=== PATIENT | male | born 1950 | race Caucasian/White ===

== ENCOUNTER → 2018-07-05 10:34 | Outpatient (CLI) | payer OTHER, SELFPAY ==
--- NOTE | 2018-07-05 | DI.CT.S_ITS ---
PROCEDURE: CT INTERNAL AUDITORY CANALS BI INDICATIONS: RIGHT TINNITUS TECHNIQUE: After the administration of intravenous contrast, 0.6 mm thick direct axial and coronal sections acquired through the affected temporal bone. COMPARISON: None. FINDINGS: Image quality: Excellent. RIGHT: External auditory canal: Canal has a normal appearance. Middle ear: Middle ear structures, including the ossicles and tympanic membrane, appear normal. No abnormal fluid or soft tissues within the middle ear cavity. Inner ear: Inner ear is normally formed and appears unremarkable. Facial nerve appears normal throughout its course. Mastoids: Mastoid air cells are clear. LEFT: External auditory canal: Canal has a normal appearance. Middle ear: Middle ear structures, including the ossicles and tympanic membrane, appear normal. No abnormal fluid or soft tissues within the middle ear cavity. Inner ear: Inner ear is normally formed and appears unremarkable. Facial nerve appears normal throughout its course. Mastoids: Mastoid air cells are clear. MISCELLANEOUS: Visualized surrounding bones are unremarkable. Visualized intracranial structures, including the cerebellopontine angle cisterns, appear normal. IMPRESSION: Normal examination, without an imaging explanation found for the patient's presenting history of right sided pulsatile tinnitus. Dictated by: Domenico Cavazos M.D. on 07/05/2018 at 12:13 Approved by: Domenico Cavazos M.D. on 07/05/2018 at 12:15
[2018-07-05 11:14] LABS: Estimated Glomerular Filt Rate > 60.0 mL/min (>60)
== END ==
PROVIDERS: Family Provider Family Medicine; PCP Family Medicine; Visit Provider Otolaryngology
DX: H93.11 Tinnitus, right ear (principal)
CPT/HCPCS: 36415; 70480; 82565; Q9967

== ENCOUNTER → 2019-03-19 08:34 | Outpatient (CLI) | payer OTHER, SELFPAY ==
--- NOTE | 2019-03-19 | DI.US.S_ITS ---
PROCEDURE: US ABD AORTA ANEURYSM SCREEN INDICATIONS: PERSONAL HX OF NOCOTINE DEPENDENCE TECHNIQUE: Real time scanning was performed of the aorta and iliac arteries, with image documentation. COMPARISON: None. FINDINGS: Aorta: Proximal aortic diameter measures 2.8 cm. Mid-aorta measures 2.3 cm. Distal aortic diameter is 1.4 cm. Iliac arteries: Right common iliac artery measures 1.0 cm. Left common iliac artery measures 1.0 cm. IMPRESSION: No abdominal aortic or proximal common iliac artery aneurysm. Dictated by: Alexandre Al [facility] Interpreted: Bk Lee MD on 03/19/2019 at 13:28 Approved by: Bk Lee M.D. on 03/20/2019 at 9:11
--- NOTE | 2019-03-19 | DI.RAD.S_ITS ---
PROCEDURE: XR CHEST 2V INDICATIONS: Personal history of nicotine dependence,COUGH TECHNIQUE: 2 views of the chest were acquired. COMPARISON: [facility], , CHEST 1 VIEW, 08/19/2015, 10:16. FINDINGS: Surgical changes and devices: Dual-lead cardiac AICD Lungs and pleura: Lungs appear clear. No pleural effusions or pneumothorax. Mediastinum: Mediastinal contours are normal. Heart size is normal. Bones and chest wall: No suspicious bony abnormalities. Soft tissues appear unremarkable. IMPRESSION: No acute disease Dictated by: Genaro Glass M.D. on 03/19/2019 at 10:50 Approved by: Genaro Glass M.D. on 03/19/2019 at 10:51
== END ==
PROVIDERS: PCP Family Medicine; Visit Provider Family Medicine
DX: Z13.6 Encounter for screening for cardiovascular disorders (principal); R05 Cough; I10 Essential (primary) hypertension; Z87.891 Personal history of nicotine dependence
CPT/HCPCS: 71046; 76706

== ENCOUNTER → 2020-08-07 10:18 | Outpatient (CLI) | payer OTHER, SELFPAY ==
--- NOTE | 2020-08-07 10:22 | DI.RAD.S_ITS ---
PROCEDURE: XR KNEE RT 3V INDICATIONS: BI KNEE PAIN TECHNIQUE: 3 views of the knee were acquired. COMPARISON: Located Within [facility], , KNEE 1-2 VIEWS LEFT, 01/24/2009, 10:18. FINDINGS: Bones: No fracture. Bulky osteophyte formation. Scattered degenerative spurring and subchondral sclerosis. Moderate medial joint space narrowing. Mild to moderate patellofemoral joint space narrowing. Subcentimeter sclerotic focus projecting in the proximal tibial plateau, indeterminate although could be superimposed osteophyte. Soft tissues: No joint effusion. No suspicious soft tissue calcifications. IMPRESSION: Progressive right knee degenerative joint disease since 01/24/09. Dictated by: Genaro Glass M.D. on 08/07/2020 at 11:58 Approved by: Genaro Glass M.D. on 08/07/2020 at 12:00
--- NOTE | 2020-08-07 10:22 | DI.RAD.S_ITS ---
PROCEDURE: XR KNEE LT 3V INDICATIONS: BI KNEE PAIN TECHNIQUE: 3 views of the knee were acquired. COMPARISON: [facility], , KNEE 1-2 VIEWS LEFT, 01/24/2009, 10:18. FINDINGS: Bones: No fracture. Narrowing of the patellofemoral joint space. Soft tissues: No joint effusion. No suspicious soft tissue calcifications. Remaining disc spaces appear preserved. IMPRESSION: Patellofemoral degenerative joint disease. Dictated by: Genaro Glass M.D. on 08/07/2020 at 11:48 Approved by: Genaro Glass M.D. on 08/07/2020 at 11:49
== END ==
PROVIDERS: PCP Family Medicine; Referring Provider Family Medicine; Visit Provider Family Medicine
DX: M17.11 Unilateral primary osteoarthritis, right knee (principal); M17.12 Unilateral primary osteoarthritis, left knee
CPT/HCPCS: 73562

== ENCOUNTER → 2020-08-28 12:16 | Outpatient (CLI) | payer OTHER, SELFPAY ==
--- NOTE | 2020-08-28 12:18 | DI.ECHO.S_ITS ---
[facility]+ [facility] +---------+ : : [address] : : : : [id number] : : : : Phone: [phone]+ Echocardiogram Report + + :Name: ALENA WIGGINS Study Date: 08/28/2020 Height: 71 in : :[facility] ReadingLocation: Weight: 205 lb : : Gender: Male BSA: 2.1 m2 : :: 1950 Age: 70 yrs BP: 119/69 mmHg: :Reason For Study: Fatigue : :Ordering Physician: GRECIA, : :GERMANIA Valero Performed By: Ronnie Ervin : :Referring: GERMANIA PAIGE : + + Interpretation Summary This is a technically difficult study enhanced with definity echocontrast. Sinus bradycardia. Heart rate is 50-52 pm. Normal LV size and wall thickness. There is severe basal inferior, basal inferolateral and mid inferior hypokinesis. Otherwise mild global hypokinesis. EF is 30-35%. Stage I diastolic dysfunction. No significant valvular abnormalities. Normal chamber sizes. Compared to prior study 08/20/2015 bradycardia and cardiomyopathy are unchanged from prior study. Procedure: A two-dimensional transthoracic echocardiogram with color flow and Doppler was performed. The study quality was technically difficult. Comparison is made with the echocardiogram of 08/20/2015. A contrast injection of Definity was performed to improve assessment of LV function. Left Ventricle: The left ventricle is normal in size and wall thickness. Left ventricular systolic function is moderately reduced. The ejection fraction is estimated to be 30-35%. There is severe basal inferior, basal inferolateral and mid inferior hypokinesis. Otherwise mild global hypokinesis. Diastolic parameters suggest a relaxation abnormality of the left ventricle, consistent with probable normal filling pressures. Right Ventricle: The right ventricle is normal in size and function. Atria: Both atria are normal in size. There is no Doppler evidence for an interatrial shunt. Mitral Valve: The mitral valve is normal in structure and function. There is mild mitral regurgitation. Aortic Valve: There is mild aortic valve sclerosis. No aortic regurgitation is present. Tricuspid Valve: The tricuspid valve is normal in structure and function. There is a trace or physiologic amount of tricuspid regurgitation. Pulmonary artery pressures cannot be estimated because of the lack of a measurable TR jet velocity. Pulmonic Valve: The pulmonic valve is not well visualized. There is a trace or physiologic amount of pulmonic regurgitation. Great Vessels: The aortic root is normal size. The dimensions of the ascending aorta are normal. The IVC is of normal diameter and collapses greater than 50% with a sniff. This suggests a low right atrial pressure of 3 mm Hg. Pericardium/ Pleura There is no pericardial effusion. There is no pleural effusion. MMode/2D Measurements & Calculations LVIDd: 5.4 cm LVOT diam: 2.2 cm LVIDs: 4.5 cm Ao root diam: 3.6 cm FS: 16.1 % asc Aorta Diam: 3.2 cm IVSd: 1.1 cm LVPWd: 0.92 cm LV paz. diameter/BSA (cm/m^2): 2.5 LV sys. diameter/BSA (cm/m^2): 2.1 LA A2 area: 21.7 cm2 RA area: 14.7 cm2 LA A4 area: 20.9 cm2 LA length (vol): 5.4 cm LA vol: 71.0 ml LA vol index: 33.3 ml/m2 RVD1 (basal): 3.6 cm Doppler Measurements & Calculations Ao V2 max: 157.1 cm/sec LVOT Max Franki: 112.5 cm/sec Ao V2 mean: 109.9 cm/sec LV V1 max P.1 mmHg Ao max P.9 mmHg LV V1 VTI: 21.9 cm Ao mean P.3 mmHg CRISTY(I,D): 2.5 cm2 Ao V2 VTI: 35.0 cm CRISTY(V,D): 2.8 cm2 sev ratio: 0.63 CRISTY indexed to BSA (cm^2/m^2): 1.2 MV E max franki: 49.6 cm/sec PA V2 max: 75.8 cm/sec MV A max franki: 74.6 cm/sec PA V2 mean: 53.4 cm/sec MV E/A: 0.66 PA mean P.3 mmHg Med Peak E' Franki: 6.1 cm/sec PA pr(Accel): 45.8 mmHg E/E' med: 8.1 Lat Peak E' Franki: 9.7 cm/sec E/E' lat: 5.1 E/e' average: 6.6 MV dec time: 0.30 sec SV(LVOT): 86.3 ml Electronically signed by: Martha Galvan M.D. on Reading Physician:08/29/2020 01:29 AM
== END ==
PROVIDERS: PCP Family Medicine; Referring Provider Family Medicine; Visit Provider Family Medicine
DX: I08.0 Rheumatic disorders of both mitral and aortic valves (principal); R53.83 Other fatigue; I25.10 Atherosclerotic heart disease of native coronary artery without angina pectoris; Z86.74 Personal history of sudden cardiac arrest
CPT/HCPCS: C8929; Q9957

== ENCOUNTER → 2021-07-06 13:30 | Outpatient (CLI) | payer OTHER, SELFPAY ==
--- NOTE | 2021-07-06 | DI.CT.S_ITS ---
PROCEDURE: CT UE RT WO CON INDICATIONS: Primary osteoarthritis, right shoulder TECHNIQUE: Noncontrast 1-1.5 mm thick sections acquired from the acromioclavicular joint to the inferior scapula, with coronal and sagittal reformatting. COMPARISON: [facility] [place], CR, XR SHOULDER 2+ VIEWS RIGHT, 06/08/2021, 9:36. FINDINGS: Image quality: There is mild motion artifact. Bones: There is severe joint space narrowing of the glenohumeral joint with subchondral sclerosis and cystic changes as well as prominent osteophytosis. Bony remodeling is demonstrated along the articular surfaces including scalloping posteriorly in the glenoid with mild associated retroversion. Indistinct curvilinear lucencies within the posterior glenoid are also suspicious for sequelae of a mildly depressed impaction fracture. There is superior migration of the humeral head with respect to the glenoid. There is mild acromioclavicular joint degeneration. Remaining visualized osseous structures appear intact. Soft tissues: There is a small glenohumeral joint effusion. There is a fluid collection along the anterior aspect of the subscapularis muscle measuring up to 3.4 x 2.1 cm in transverse dimension suggestive of a loculated joint recess. There are a few internal calcifications which may represent calcified joint bodies or dystrophic calcifications. There is fluid along the biceps tendon suggestive of tenosynovitis. The rotator cuff demonstrates no definite complete tears. Evaluation is limited on CT. No fatty muscle atrophy. IMPRESSION: 1. Severe glenohumeral joint degeneration as described with bony remodeling along the articular surfaces including posterior scalloping along the glenoid with mild associated retroversion. Curvilinear subcortical lucencies within the posterior glenoid raise the possibility of a mildly depressed subchondral impaction fracture. Further evaluation may be obtained with MRI clinically indicated. 2. Superior migration of the humeral head with respect to the glenoid without definite complete rotator cuff tear identified. 3. Mild acromioclavicular joint degeneration. Dictated by: Hernandez Ferreira M.D. on 07/06/2021 at 16:15 Approved by: Hernandez Ferreira M.D. on 07/06/2021 at 16:26
== END ==
PROVIDERS: PCP Family Medicine; Referring Provider Orthopaedic Surgery; Visit Provider Orthopaedic Surgery
DX: M19.011 Primary osteoarthritis, right shoulder (principal)
CPT/HCPCS: 73200

== ENCOUNTER → 2021-08-10 10:25 | Outpatient (CLI) | payer OTHER, SELFPAY ==
[2021-08-10 12:22] LABS: Add Manual Diff / Slide Review NO; Basophils Absolute Auto 100 /uL (0-100); Basophils Percent Auto 3.2 % (0-2); Eosinophils Absolute Auto 400 /uL (0-450); Eosinophils Percent Auto 9.4 % (2-4); Hemoglobin 12.8 g/dL (13.5-17.5); Lymphocytes Absolute Auto 1000 /uL (1100-4500); Lymphocytes Percent Auto 23.3 % (25-40); Mean Corpuscular HGB Conc 33.8 % (30-36); Mean Corpuscular Hemoglobin 31.8 PG (26-34); Mean Corpuscular Volume 94.3 fL (80-100); Monocytes Absolute Auto 600 /uL (0-900); Monocytes Percent Auto 14.8 % (3-14); Neutrophils Absolute Auto 2000 /uL (1500-7000); Neutrophils Percent Auto 49.3 % (50-75); Platelet Count 219 X10^3/uL (150-400); Red Blood Cell Count 4.02 X10^6/uL (4.5-5.9); Red Cell Distribution Width 12.9 % (11.6-14.8); White Blood Cell Count 4.1 X10^3/uL (4.5-11.0)
[2021-08-10 13:04] LABS: BUN Creatinine Ratio 26.6 (6-22); Blood Urea Nitrogen 21 mg/dL (9-20); Calcium 8.8 mg/dL (8.4-10.2); Carbon Dioxide 28 mmol/L (22-32); Chloride 102 mmol/L (98-107); Estimated Glomerular Filt Rate > 60 mL/min (>60); Glucose 92 mg/dL (80-110); Potassium 4.8 mmol/L (3.4-5.1); Sodium 139 mmol/L (137-145)
[2021-08-10 13:13] LABS: HEMOLYSIS 122 (0-50)
== END ==
PROVIDERS: PCP Family Medicine; Referring Provider Orthopaedic Surgery; Visit Provider Orthopaedic Surgery
DX: I10 Essential (primary) hypertension (principal); Z01.812 Encounter for preprocedural laboratory examination
CPT/HCPCS: 36415; 80048; 85025

== ENCOUNTER → 2021-08-31 09:24 | Outpatient (CLI) | payer OTHER, SELFPAY ==
[2021-08-31 11:55] LABS: COVID19 -Nasal RAPID Negative (Negative)
== END ==
PROVIDERS: PCP Family Medicine; Visit Provider Family Medicine Sleep Medicine
DX: Z20.822 Contact with and (suspected) exposure to COVID-19 (principal); Z01.812 Encounter for preprocedural laboratory examination
CPT/HCPCS: 87635; C9803

== ENCOUNTER → 2021-10-19 10:01 | Outpatient (CLI) | payer OTHER, SELFPAY ==
[2021-10-19 10:34] LABS: COVID19 -Nasal RAPID Negative (Negative)
== END ==
PROVIDERS: PCP Family Medicine; Referring Provider Orthopaedic Surgery; Visit Provider Orthopaedic Surgery
DX: Z20.822 Contact with and (suspected) exposure to COVID-19 (principal)
CPT/HCPCS: 87635; C9803

== ENCOUNTER 2021-10-21 06:11 | Day surgery (SDC) | payer OTHER, SELFPAY ==
[2021-10-15 08:00] VITALS: BMI 29.4
[2021-10-21] VITALS (14 sets, daily range): BP systolic 110–141; BP diastolic 35–83; PULSE 53–73; RESP 16–23; TEMP 36.1–36.4; O2SAT 92–97; BMI 29.4
--- NOTE | 2021-10-21 06:00 | DI.RAD.S_ITS ---
PROCEDURE: XR SHOULDER RT 1V INDICATIONS: prosthesis placement TECHNIQUE: Single views of the shoulder were acquired. COMPARISON: [facility], , SHOULDER MINIMUM 2VIEW RIGHT, 05/14/2016, 11:20. FINDINGS: Bones: Total right shoulder arthroplasty in good position. Overlying postprocedural soft tissue air present. No evidence of fracture. Right lung apex is clear without pneumothorax. Soft tissues: No suspicious soft tissue calcifications. IMPRESSION: Total right shoulder arthroplasty in good position. Approved by: David Salinas M.D. on 10/21/2021 at 11:49
[2021-10-21] MEDS: ACETAMINOPHEN 325 MG TABLET 975 MG PO (07:30)
[2021-10-21] MEDS: PREGABALIN 75 MG CAPSULE PO (07:30)
[2021-10-21] MEDS: CELECOXIB 200 MG CAPSULE PO (07:31)
[2021-10-21] MEDS: LACTATED RINGERS 1,000 ML 42 ML IV ×2 (07:44→10:04)
--- NOTE | 2021-10-21 08:01 | PM.PREOP ---
Pre-operative Note COVID-19 COVID-19 status: Negative Result date/Date tested (Pos, Neg/Pending): 10/19/21 Interval Note History & Physical reviewed/Exam performed by Physician: Yes Changes to H&P: No
--- NOTE | 2021-10-21 09:02 | SUR.PREOP ---
Block start time [0850] . Monitoring initiated and maintained throughout procedure. Oxygen and medications given by anesthesiologist Michael. Patient remained stable throughout procedure, no adverse reactions noted. Block end time [0903].
[2021-10-21] MEDS: CEFAZOLIN 2 GM/20 ML SYRINGE IV (09:09)
[2021-10-21] MEDS: TRANEXAMIC ACID 1,000 MG VIAL 1000 MG INJ ×2 (09:25→10:55)
[2021-10-21] MEDS: BUPIVACAINE 0.5% (PF) 30 ML, EPINEPHrine 0.15 MG INJ (09:52)
--- NOTE | 2021-10-21 09:55 | SUR.OPER ---
Beach chair with Schlein shoulder positioner. Lower body on padded OR bed. Head in foam padded head cradle, secured with straps. Non-operative arm secured <90 degrees abduction. Pillow under knees. Safety belt at thigh. Cloth tape over blanket over lower legs.
--- NOTE | 2021-10-21 10:06 | PM.PROC.1 ---
Procedures Date/Time Date of procedure: 10/21/21 Time of procedure: 08:50 General Procedure description: Ultrasound guided interscalene brachial plexus nerve block for post op pain control after right total shoulder arthroplasty by Dr. Vazquez. Risk and benefits of procedure discussed with patient. ASA monitoring applied to patient. O2 given via nasal cannula. 2 mg Versed and 50 mcg fentanyl given for procedural sedation. Skin site was prepped with chlorhexidine and allowed to fully dry. Sterile gloves, mask, hat and probe cover were used to maintain sterility. 2% lidocaine and 30ga needle was used to make a small skin wheal at needle insertion site. Under ultrasound guidance, a 21ga 50mm Pajunk needle was directed into the interscalene groove (middle/anterior scalenes) near the brachial plexus. Patient reported no parasthesias. After negative aspiration, 50 mL 0.5% bupivacaine and 10mg dexamethasone were injected around brachial plexus. Patient tolerated procedure well.
--- NOTE | 2021-10-21 11:26 | P.OP_ITS ---
Operative Date/Time/Diagnoses Date of procedure: 10/21/21 Time of procedure: 11:26 Pre-op diagnosis: Right shoulder osteoarthritis with extensive erosion of the glenoid Post-op diagnosis: same Procedure & Clinicians Procedure: Right reverse total shoulder replacement Same procedure as scheduled: Yes Indications: The patient has had progressively worsening right shoulder pain with radiographic changes consistent with arthritis. Preoperative workup has shown significant posterior superior erosion of the glenoid with posterior subluxation of the glenohumeral joint necessitating the use of an augmented glenoid with a reverse total shoulder replacement. Non-operative management has failed and the patient has requested total shoulder replacement. The risks, benefits and alternatives to surgery were discussed with the patient prior to proceeding. Risks discussed included, but were not limited to, failure to relieve pain, stiffness, infection, nerve damage, deep venous thrombosis, pulmonary embolism, stroke, coma, heart attack, permanent paralysis and , as well as the potential need for eventual revision of the prosthetic. Surgeon: Jan Vazquez Professional Builder: Amy Heart Click Yes if Unassisted: No Anesthesia Type: General, Peripheral nerve block and Local Operative Notes Findings: Severe osteoarthritis of the glenohumeral joint with posterior superior erosion of the glenoid as anticipated. Closure Type: primary Specimen(s): none sent Prosthetic devices, grafts, tissues, transplants, or devices: Implants used in this procedure manufactured by the [id number] and included a [employer] 24 mm base plate with a 20 degree full augment with a 35 mm modular post, there was a 32 mm nonlocking inferior screw and a 36 mm superior locking screw and 228 mm anterior and posterior locking screws. There was a 36 mm +4 lateralized glenosphere and locking screw. There was a size 10 [employer] humeral stem with a 36 neutral suture cup placed at 135?. There was a 36 mm +3 humeral insert. Applied: implant(s) Estimated Blood Loss (mL): 200 Blood products transfused: none Procedure in detail: The patient was seen in the preoperative area where they identified the right shoulder as the operative site and this was marked with my initials. ?They received preoperative antibiotics and underwent the induction of an interscalene block. They were taken to the operating room and placed on the operating room table in a supine position with the underwent the induction of a general anesthetic. ?There were then repositioned in the ?beach chair? position using a dedicated positioner. ?All pressure points were well padded. The knees were slightly bent to prevent tension on the sciatic nerves. A multimedia specialist-out was performed. The right arm was prepared from the fingertips to the base of the neck with ChloraPrep in the usual fashion and draped through sterile drapes. ?An approximately 15 cm incision was created starting at the clavicle just above the coracoid and going to the deltoid insertion. ?The deltopectoral interval was used to access the shoulder taking the vein to the lateral side. The vein was protected throughout the case. The biceps tendon was identified and used as a guide to releasing the remaining subscapularis. ?The biceps itself was tenodesed over the pectoralis tendon using a suture. The subscapularis was tagged for later repair. The shoulder was dislocated and a proximal humeral osteotomy performed using an intramedullary guide. A proximal humeral protector was then placed. Retractors were placed access the glenoid. ?A 360 degree release was performed of the remaining subscapularis with care being taken to protect the axillary nerve. The soft tissues were removed circumferentially around the glenoid. ?The guide was used to drill the guide hole in the center of the inferior glenoid. ?The need for a 20 degree augmentation was confirmed. The angled 20 degree Reamer was then used. The appropriate implant was assembled and impacted into position. The inferior screw was filled with a nonlocking screw to provide additional compression of the glenoid base plate. The peripheral locking screws were then placed. The glenoid head was applied, impacted into position and the set screw placed. We then turned our attention to the humerus. The proximal humeral protector was removed. The T-handle Reamer was used to a size 8 to ease the passage of the broaches.. Broaching was then performed beginning with a small broach and working up until a fit with good rotational stability was obtained. The guide for the proximal metaphyseal reamer was then applied and the metaphysis was reamed appropriately. ?The trial metaphyseal portion of the body was then applied to the broach. ?Trial reductions were performed and the offset of the cup was optimized. ?Stability was checked in maximal internal and external rotation and range of motion was checked to allow access to the top of the head, internal rotation to an excess of 50? in the ?scarecrow position? and the ability to reach the groin. ?The appropriate final prosthetic components were then opened. The humeral prosthetic was then impacted into position. The humeral cup was placed. ?The joint was relocated and irrigated. The subscapularis was repaired to the lateral remnant with [id number] #2 Ethibond sutures. The del topectoral interval was reapproximated with 0 Vicryl. Subcutaneous layer was closed with interrupted 3-0 Vicryl and skin with a running 3 0 V lock suture. Subcutaneous tissues were then infiltrated with 0.5% Marcaine for postoperative pain control. ?An Aquacel Ag dressing was applied and the patient's arm was placed in a sling. The patient was then transferred to the recovery room in good condition having tolerated the procedure well. Complications: none Post-operative Condition: stable Disposition: PACU Plan for aftercare: The patient will be maintained on a standard reverse total shoulder protocol with passive range of motion of the arm in front of the body below shoulder level. We will check on him later this afternoon and if he is stable and wishes to go home he will be discharged. If his pain control is not adequate he will be maintained in the hospital overnight.
--- NOTE | 2021-10-21 12:24 | SUR.PHASEI ---
Pt A&Ox4, denies any distress and ready to transfer to room. Report given to LINDSEY Isaac using SBAR with time allowed for questions. Pt transferred to room 222 with all personal belongings including glasses.
[2021-10-21] MEDS: LACTATED RINGERS 1,000 ML 100 ML IV ×2 (12:45→22:53)
[2021-10-21] MEDS: ACETAMINOPHEN 325 MG TABLET 650 MG PO ×2 (12:45→17:01)
[2021-10-21] MEDS: IBUPROFEN 400 MG TABLET PO ×2 (12:45→17:00)
--- NOTE | 2021-10-21 13:30 | PT.IIE ---
Current Diagnoses Primary osteoarthritis, right shoulder (10/21/21) Surgery Performed Operation Date: 10/21/21 09:15 Actual Procedures p Total Shoulder Arthroplasty - Reverse(Right) - Jan Vazquez MD Surgical History (Last Updated 08/25/21 @ 09:16 by Marie Herrera, RN) H/O vasectomy History of cardiac cath History of cardiac radiofrequency ablation Hx of bilateral cataract extraction Hx of heart artery stent (2002) Hx of heart artery stent (1997) Hx of tonsillectomy Status post epidural steroid injection Medical History (Last Updated 08/25/21 @ 09:19 by Marie Herrera, RN) Anxiety Back pain CAD (coronary artery disease) COPD (chronic obstructive pulmonary disease) Degenerative joint disease (DJD) of hip Depression Esophageal reflux History of cardioversion HLD (hyperlipidemia) HTN (hypertension) Ischemic cardiomyopathy Mitral valve insufficiency Myocardial infarction (01/21/98) MAR (obstructive sleep apnea) Osteoarthritis Pacemaker (09/01/15) Paroxysmal A-fib Physical Therapy Inpatient Evaluation/Re-Eval M1 PT/OT-IP Prior Functional Status Start: 10/21/21 14:40 Freq: NEEDED Status: Active Protocol: Document 10/21/21 13:30 AB (Rec: 10/21/21 14:51 AB [email or web address]) Medical Review Prior Functional Status Medical History Reviewed Yes Communication able to make needs known Mobility and Gait pt stated that he is modified independent with all mobilities and ambulation without AD; uses a SPC when he is walking the dog Social History Household Members spouse Living Arrangements House Number of Floors (Floors) One Floor Number of Stairs To Enter/Railing? 2 platform steps to enter the house without rails Home Environment High Toilet,Walk in Shower Home Equipment Straight Cane,Hand Held Shower ,Grab Bars Near Toilet,Grab Bars In Shower Additional Social History Comment pt has an adjustable bed at home M2 PT-IP Current Condition Start: 10/21/21 14:40 Freq: NEEDED Status: Active Protocol: Document 10/21/21 13:30 AB (Rec: 10/21/21 14:51 AB [email or web address]) Physical Therapy Current Condition Current Condition Evaluation Date 10/21/21 Treatment Diagnosis s/p R TSA reverse; difficulty in walking Onset Date 10/21/21 M3 PT-IP Subjective Start: 10/21/21 14:40 Freq: NEEDED Status: Active Protocol: Document 10/21/21 13:30 AB (Rec: 10/21/21 14:51 AB [id number]) Subjective Physical Therapy Visit Type Type Initial Evaluation Visit Start Time 13:30 Visit Stop Time 14:25 Total Visit Minutes 55 Number of ORDER TAKERS SUPERVISOR Visits 0 Physical Therapy Visit Comments Patient Comments agreeable to do PT Therapy Pain Assessment Pain Present Pain Present Denied Pain M4 PT-IP Mobility and Gait Start: 10/21/21 14:40 Freq: NEEDED Status: Active Protocol: Document 10/21/21 13:30 AB (Rec: 10/21/21 14:51 AB [id number]) PT-Bed Mobility Assessment Supine to Sit Supine to Sit Standby Assistance,Head of Bed Elevated Sit to Supine Sit to Supine Standby Assistance,Head of Bed Elevated PT-Transfer Assessment Sit to and From Stand Sit to and from Stand Contact Guard Assistance,1 Person Assistance,Use of Upper Extremities Equipment Transfer Assistive Device None,Gait Belt Orthotic/Prosthetic Devices or Brace: Yes Comments Mobility Comments educated pt and spouse regarding shoulder precautions , weight bearing restrictions, pendulum exercises, elbow/ wrist/hand exercises. pt completed supine to sit SBA with HOB elevated. pt has an adjustable bed at home. pt able to sit on EOB SBA. Caregiver training conducted for sling management. educated sposue on how to put manage sling but requires cues and instructions to complete and need further training. conducted elbow/wrist/hand exercises PROM at this time due to pt's numbness on RUE and still does not have motor control back on RUE. pt completed sit to stand CGA and ambulated in room without AD CGA ~ 25 ft. unsteady gait with increase lateral trunk lean to the R. pt went back to bed. SBA for sit to supine. positioned pt in bed. call light and table placed within reach. set up another caregiver training with pt and spouse tomorrow at 9am. spouse will bring pt's SPC tomorro. Gait Assessment Gait Gait Assistance Required: Contact Guard Assist,1 Person Assist Distance (Feet) 25 Able to Maintain Weight Bearing Status Yes During Gait Assistive Devices Assistive Device None,Gait Belt Orthotic/Prosthetic Devices or Brace: Yes Gait Deviations General Gait Pattern Antalgic,Flexed Trunk Factors Limiting Gait Function Factors Limiting Gait Function Decreased Activity Tolerance, Decreased Sensation,Decreased Strength,Limited Range of Motion,Poor Balance,Poor Safety Awareness PT-Balance Assessment Sitting Balance and Reactions Static Sitting Balance Ability Normal Dynamic Sitting Balance Ability Good Standing Balance and Reactions Static Standing Balance Ability Fair Dynamic Standing Balance Ability Fair Device Used without AD M5 PT-IP Objective Assessments Start: 10/21/21 14:40 Freq: NEEDED Status: Active Protocol: Document 10/21/21 13:30 AB (Rec: 10/21/21 14:51 AB [email or web address]) Orientation Orientation/Cognition Level of Alertness Alert Orientation Name,Place,Situation Language Function Ability No Deficits Noted Safety Awareness Decreased Safety Awareness Memory Description No Deficits Noted,Short Term Impaired Gross Range of Motion Lower Extremity ROM Assessment Within Functional Limits Strength Lower Extremity Strength Assessment Within Functional Limits Coordination Assessment Gross Coordination Gross Coordination WNL Sensation Assessment Sensation Gross Sensation Right UE Impaired Light Touch Absent Proprioception (Position) Absent Sensation Description Numbness Comments Sensation Comments numbness on RUE and motor control is not back yet M6 PT-IP Treatment Start: 10/21/21 14:40 Freq: NEEDED Status: Active Protocol: Document 10/21/21 13:30 AB (Rec: 10/21/21 14:51 AB [email or web address]) Physical Therapy Treatment Exercises Exercises Shoulder Pendulums,Elbow Flexion/Extension,Wrist ROM, Hand ROM Education Education Provided Precautions,Weight Bearing Status,Post-Op Packet,Safety M7 PT-IP Assessment and Plan Start: 10/21/21 14:40 Freq: NEEDED Status: Active Protocol: Document 10/21/21 13:30 AB (Rec: 10/21/21 14:51 AB [email or web address]) PT Summary Assessment and Plan Potential Rehabilitation Potential Fair Status of Condition at Evaluation Evolving Summary Impairments Pain,ROM,Strength,Balance, Coordination,Sensation,Tone, Cognition,Bed Mobility, Transfers,Gait,Activity Tolerance Assessment Summary pt s/p R TSA reverse and just had surgery this morning. pt is still numb on RUE. conducted caregiver training with spouse but further training is needed. caregiver training set up tomorrow at 9 am. will continue to assess progress. Goals Bed Mobility Goal Independent Transfer Goal Independent,Cane Gait Goal Independent,Cane Gait Distance 200 Other Goals improve transfers and ambulation without AD 300 ft up/down 2 platform steps without AD / SPC/PROFESSOR OF JOURNALISM SBA Days to Meet Goals 5 Frequency of Treatment Frequency Of Treatment Twice a Day Treatment Plan Physical Therapy Treatment Plan Bed Mobility Training,Transfer Training,Gait Training, Therapeutic Exercise,Balance Retraining,Post Op Education, Discharge Planning,Hot or Cold Pack,Neuromuscular Re-ed, Coordination Retraining,Manual Therapy Precautions Shoulder Precautions Sling,PROM,Internal Rotation to Body,No External Rotation, No Abduction,Forward Flexion to 90 degrees,Pendulums Weight Bearing Status Weight Bearing Status Non-Weight Bearing Allowed Weight Bearing Amount (enter % RUE NWB or #) (%) Recommendations To Nursing Amount of Assist Needed 1 Person Assist Discharge Recommendations PT Discharge Recommendations Home with Assistance, Outpatient PT Transportation Needs at Discharge Private Vehicle,Wheelchair/ Cabulance
[2021-10-21] MEDS: carvediloL 12.5 MG TABLET 25 MG PO (20:25)
[2021-10-21] MEDS: ATORVASTATIN 20 MG TABLET 80 MG PO (20:25)
[2021-10-21] MEDS: DABIGATRAN 75 MG CAPSULE 150 MG PO (20:26)
[2021-10-21] MEDS: DOCUSATE 100 MG CAPSULE PO (20:26)
--- NOTE | 2021-10-21 20:53 | PC.NURSE ---
Patient is alert and oriented. Breath sounds CTA with RA sat of 94%. HRR. Denies nausea. BT hypoactive and denies flatus as yet. Denies dysuria, frequency or urgency with urination. Is able to move self in bed. Gets out of bed with SBA for safety. Wearing sling to right UE. Aquacel dressing is CDI. Able to move fingers of right hand but still has tingling/numbness in UE; has strong radial pulse. Denies pain. Declining Ibuprofen as he states his MD has told him not to take Ibuprofen due to other medications he is on. Fall risk score is moderate but patient calls appropriately for assistance.
[2021-10-22 03:19] VITALS: BP 115/69; PULSE 59; RESP 17; TEMP 36.3; O2SAT 95
[2021-10-22 05:43] LABS: Hemoglobin 11.8 g/dL (13.5-17.5)
[2021-10-22] MEDS: ACETAMINOPHEN 325 MG TABLET 650 MG PO ×2 (05:54)
--- NOTE | 2021-10-22 08:49 | PM.DS.1 ---
History of Present Illness History of Present Illness Date Patient Seen: 10/22/21 Time Patient Seen: 08:49 Chief complaint: Shoulder pain Narrative: Right shoulder pain is mild. Denies fever or chills. No nausea or vomiting. Patient does have assistance at home. Discharge Providers Provider Discharge Date: 10/22/21 Primary care physician: Sang Velazquez MD Consults: 10/21/21 12:25 Consult to Discharge Planning Routine Comment: Consult to Physical Therapy Evaluate & Treat Comment: Physician Instructions: pendulums, PROM 90 FF, 0 ER, 0 AB, IR to body Discharge provider: Lee Warren PA-C Summary Hospital Course Discharge Diagnosis: Right shoulder osteoarthritis with extensive erosion of the glenoid Hospital Course: Right reverse total shoulder replacement Same procedure as scheduled: Yes Indications: The patient has had progressively worsening right shoulder pain with radiographic changes consistent with arthritis.? Preoperative workup has shown significant posterior superior erosion of the glenoid with posterior subluxation of the glenohumeral joint necessitating the use of an augmented glenoid with a reverse total shoulder replacement.? Non-operative management has failed and the patient has requested total shoulder replacement. The risks, benefits and alternatives to surgery were discussed with the patient prior to proceeding. Risks discussed included, but were not limited to, failure to relieve pain, stiffness, infection, nerve damage, deep venous thrombosis, pulmonary embolism, stroke, coma, heart attack, permanent paralysis and , as well as the potential need for eventual revision of the prosthetic. Surgeon: Jan Vazquez Plastics Sheet Finishing Press Operator: Amy Heart Click Yes if Unassisted: No Anesthesia Type: General, Peripheral nerve block and Local Operative Notes Findings: Severe osteoarthritis of the glenohumeral joint with posterior superior erosion of the glenoid as anticipated. Closure Type: primary Specimen(s): none sent Prosthetic devices, grafts, tissues, transplants, or devices: Implants used in this procedure manufactured by the [employer] and included a [employer] 24 mm base plate with a 20 degree full augment with a 35 mm modular post, there was a 32 mm nonlocking inferior screw and a 36 mm superior locking screw and 228 mm anterior and posterior locking screws.? There was a 36 mm +4 lateralized glenosphere and locking screw.? There was a size 10 [employer] humeral stem with a 36 neutral suture cup placed at 135?.? There was a 36 mm +3 humeral insert. Applied: implant(s) Estimated Blood Loss (mL): 200 Blood products transfused: none Patient admitted to the hospital for the above-mentioned procedure. Patient consented to the same. Patient underwent right reverse total shoulder replacement October 21, 2021. Patient back in his room recovering well as in stable condition. Patient will work with physical therapy this morning and be discharged home in stable condition. Exam Vital Signs (past 8 hours): - 10/22/21 03:19 Temperature 97.3 F L Pulse Rate 59 L Respiratory Rate 17 Blood Pressure 115/69 Pulse Oximetry 95 Oxygen Flow Rate 0 Oxygen Delivery Method Room Air Oxygen Flow Rate 0 Narrative Exam Narrative: Pleasant 71-year-old male resting comfortably in bed in no apparent distress. Dressing is Clean, dry, intact.. Motor functions intact distal right upper extremity. Sensation grossly intact to light touch distal right upper extremity. Const General: cooperative and comfortable Orientation: alert HENMT Head: normal to inspection Chest Chest: normal inspection of the chest Resp Effort & Inspection: normal respiratory effort and able to speak in complete sentences Objective Labs Result Diagrams: 10/22/21 05:30 Labs: Laboratory Results - last 24 hr 10/22/21 05:30 Hgb 11.8 L Hct 35.0 L PFSH Medical History Anxiety Back pain CAD (coronary artery disease) COPD (chronic obstructive pulmonary disease) Degenerative joint disease (DJD) of hip Depression Esophageal reflux History of cardioversion HLD (hyperlipidemia) HTN (hypertension) Ischemic cardiomyopathy Mitral valve insufficiency Myocardial infarction (01/21/98) MAR (obstructive sleep apnea) Osteoarthritis Pacemaker (09/01/15) Paroxysmal A-fib Surgical History H/O vasectomy History of cardiac cath History of cardiac radiofrequency ablation Hx of bilateral cataract extraction Hx of heart artery stent (2002) Hx of heart artery stent (1997) Hx of tonsillectomy Status post epidural steroid injection Social History household members: spouse Smoking Status: Former smoker alcohol intake: current Discharge Assessment & Plan Assessment and Plan Assessment: Patient progressing as expected status post right reverse total shoulder replacement Plan of Treatment: The patient will be maintained on a standard reverse total shoulder protocol with passive range of motion of the arm in front of the body below shoulder level. Multimodal pain management Discharge home today in stable condition. Discharge Plan Discharge Plan Patient Disposition: Home Discharge orders & Medications Discharge Orders: Discharge (Order); Ordered 10/22/21 Ordered By: Lee Warren Prescriptions: New acetaminophen 325 mg Tablet 650 mg PO Q6HR Qty: 60 0RF ibuprofen 400 mg Tablet 400 mg PO Q4HR Qty: 60 0RF docusate sodium 100 mg Capsule 100 mg PO BID Qty: 20 0RF oxycodone 5 mg Tablet 5 mg PO Q3HR PRN (Reason: Pain, Moderate (4-6)) Qty: 60 0RF Continued atorvastatin 80 mg Tablet 80 mg PO BEDTIME Qty: 0 venlafaxine 75 mg Tablet 225 mg PO DAILY Qty: 0 carvedilol [Coreg] 12.5 MG tablet 25 mg PO BID Qty: 0 valsartan 80 mg Tablet 80 mg PO DAILY spironolactone 25 mg Tablet 12.5 mg PO DAILY alfuzosin 10 mg Tablet Extended Release 24 Hr 10 mg PO DAILY Rx Instructions: administer after the same meal each day Pradaxa 150 mg Capsule 150 mg PO BID Discontinued acetaminophen 500 mg Tablet 1,000 mg PO BID Follow up/Referrals: Jan Vazquez MD [Physician] - (Two weeks) Sang Velazquez MD [Primary Care Provider] - Diet/Activity/Treatments Diet: Diet as Tolerated Activity: The patient will be maintained on a standard reverse total shoulder protocol with passive range of motion of the arm in front of the body below shoulder level. Cold/Heat Therapy: Apply ice to shoulder as needed Skin/Wound/Dressing Care Report to your healthcare provider any signs of infection, such as:: chills, fever, increased pain, unusual drainage and unusual redness Dressing: Keep dressing clean and dry Visit Report/Discharge Packet Instructions: DI for Shoulder Replacement Stand Alone Forms: Surgery Discharge Discharge Data Primary Care Provider: Sang Velazquez Attending Provider: Jan Vazquez Quality VTE Deep Vein Thrombosis/Pulmonary Embolism Present on Admission: No
[2021-10-22 08:57] VITALS: BP 106/41; PULSE 60; RESP 18; TEMP 36.4; O2SAT 94
--- NOTE | 2021-10-22 09:22 | PT.IPTN ---
Current Diagnoses Primary osteoarthritis, right shoulder (10/21/21) Surgery Performed Operation Date: 10/21/21 09:15 Actual Procedures p Total Shoulder Arthroplasty - Reverse(Right) - Jan Vazquez MD Physical Therapy Treatment Note M2 PT-IP Current Condition Start: 10/21/21 14:40 Freq: NEEDED Status: Active Protocol: Document 10/21/21 13:30 AB (Rec: 10/21/21 14:51 AB [id number]) Physical Therapy Current Condition Current Condition Evaluation Date 10/21/21 Treatment Diagnosis s/p R TSA reverse; difficulty in walking Onset Date 10/21/21 M3 PT-IP Subjective Start: 10/21/21 14:40 Freq: NEEDED Status: Active Protocol: Document 10/22/21 08:57 KS (Rec: 10/22/21 09:34 KS [id number]) Subjective Physical Therapy Visit Type Type Treatment Note Visit Start Time 08:57 Visit Stop Time 09:22 Total Visit Minutes 25 Number of THRESHING DEPARTMENT SUPERVISOR Visits 1 Physical Therapy Visit Comments Patient Comments agreeable to do PT Therapy Pain Assessment Pain Present Pain Present Denied Pain M4 PT-IP Mobility and Gait Start: 10/21/21 14:40 Freq: NEEDED Status: Active Protocol: Document 10/22/21 08:57 KS (Rec: 10/22/21 09:34 KS [id number]) PT-Transfer Assessment Sit to and From Stand Sit to and from Stand Standby Assistance,1 Person Assistance,Use of Upper Extremities Equipment Transfer Assistive Device Gait Belt,Straight Cane Orthotic/Prosthetic Devices or Brace: Yes Transfers Transfer Destination Chair Transfer Technique Pt ambulated w/ SPC Transfer Ability Level of Assist Standby Assistance,1 Person Assistance,Use of Upper Extremities Comments Mobility Comments Pt in chair upon arrival and present for caregiver training. Demonstrated gait belt application to pts . Pt sit<>stand SBA w/ SPC. Demonstrated sling doffing/ donning and reveiwed ther ex w / pt and . Pts then successfully doffed and donned sling. Pt then ambulated ~200 ft w/ SPC and ascended/ descended 2 platform steps w/ SPC CGA and cues and returned to room and chair. Pt and state they feel safe to return home and pts son will be present for additional assist if needed. Gait Assessment Gait Gait Assistance Required: Standby Assistance,1 Person Assist Distance (Feet) 200 Able to Maintain Weight Bearing Status Yes During Gait Assistive Devices Assistive Device Gait Belt,Straight Cane Orthotic/Prosthetic Devices or Brace: Yes Gait Deviations General Gait Pattern Antalgic,Flexed Trunk Factors Limiting Gait Function Factors Limiting Gait Function Decreased Sensation,Decreased Strength,Limited Range of Motion,Poor Balance Comments Gait Comments No LOB or unsteadiness using SPC. Stair Climbing Assessment Evaluation Level of Assist On Stairs Standby Assistance,Contact Guard Assistance,1 Person Assistance Devices Stair Climbing Assistive Devices Straight Cane Technique/Endurance Stair Climbing Direction Ascend and Descend Stair Climbing Technique Step to Step Number of Steps Climbed 1 Stair Climbing Set # Repetitions (reps) 2 Comments Stair Climbing Comments Pt ascended/descended 2 platform steps w/ SPC and step to pattern w/ SBA to CGA and cues. Pt and feel safe to complete at home. PT-Balance Assessment Sitting Balance and Reactions Static Sitting Balance Ability Normal Dynamic Sitting Balance Ability Good Standing Balance and Reactions Static Standing Balance Ability Good Dynamic Standing Balance Ability Good Device Used SPC M5 PT-IP Objective Assessments Start: 10/21/21 14:40 Freq: NEEDED Status: Active Protocol: Document 10/21/21 13:30 AB (Rec: 10/21/21 14:51 AB [id number]) Orientation Orientation/Cognition Level of Alertness Alert Orientation Name,Place,Situation Language Function Ability No Deficits Noted Safety Awareness Decreased Safety Awareness Memory Description No Deficits Noted,Short Term Impaired Gross Range of Motion Lower Extremity ROM Assessment Within Functional Limits Strength Lower Extremity Strength Assessment Within Functional Limits Coordination Assessment Gross Coordination Gross Coordination WNL Sensation Assessment Sensation Gross Sensation Right UE Impaired Light Touch Absent Proprioception (Position) Absent Sensation Description Numbness Comments Sensation Comments numbness on RUE and motor control is not back yet M6 PT-IP Treatment Start: 10/21/21 14:40 Freq: NEEDED Status: Active Protocol: Document 10/22/21 08:57 KS (Rec: 10/22/21 09:34 KS [id number]) Physical Therapy Treatment Exercises Exercises Shoulder Pendulums,Elbow Flexion/Extension,Wrist ROM, Hand ROM Education Education Provided Precautions,Weight Bearing Status,Post-Op Packet,Safety Other Treatments Other Treatment Performed Scap retraction. Discussed outpatient PT. M7 PT-IP Assessment and Plan Start: 10/21/21 14:40 Freq: NEEDED Status: Active Protocol: Document 10/22/21 08:57 KS (Rec: 10/22/21 09:34 KS [id number]) PT Summary Assessment and Plan Potential Rehabilitation Potential Fair Status of Condition at Evaluation Evolving Summary Impairments Pain,ROM,Strength,Balance, Coordination,Sensation,Tone, Cognition,Bed Mobility, Transfers,Gait,Activity Tolerance Assessment Summary Pt still experiencing numbness in shoulder and lacking active elbow flexion. SBA for transfers, ambulation, and SBA to [facility] for stair training. Ambulated 200 ft w/ SOC no LOB . Pt has good understanding of exercises. Completed caregiver training w/ pts who was able to ciro/doff pts sling and provide assist as needed. Pt and feel safe to return home. He will benefit from outpatient rehab to improve strength and ROM. Goals Bed Mobility Goal Independent Transfer Goal Independent,Cane Gait Goal Independent,Cane Gait Distance 200 Other Goals improve transfers and ambulation without AD 300 ft up/down 2 platform steps without AD / SPC/POLE SANDER OPERATOR SBA Days to Meet Goals 5 Frequency of Treatment Frequency Of Treatment Twice a Day Treatment Plan Physical Therapy Treatment Plan Bed Mobility Training,Transfer Training,Gait Training, Therapeutic Exercise,Balance Retraining,Post Op Education, Discharge Planning,Hot or Cold Pack,Neuromuscular Re-ed, Coordination Retraining,Manual Therapy Precautions Shoulder Precautions Sling,PROM,Internal Rotation to Body,No External Rotation, No Abduction,Forward Flexion to 90 degrees,Pendulums Weight Bearing Status Weight Bearing Status Non-Weight Bearing Allowed Weight Bearing Amount (enter % RUE NWB or #) (%) Recommendations To Nursing Amount of Assist Needed 1 Person Assist Discharge Recommendations PT Discharge Recommendations Home with Assistance, Outpatient PT Transportation Needs at Discharge Private Vehicle
[2021-10-22] MEDS: VENLAFAXINE ER 75 MG CAP 225 MG PO (09:35)
[2021-10-22] MEDS: SPIRONOLACTONE 25 MG TABLET 12.5 MG PO (09:36)
[2021-10-22] MEDS: DOCUSATE 100 MG CAPSULE PO (09:36)
[2021-10-22] MEDS: DABIGATRAN 75 MG CAPSULE 150 MG PO (09:36)
--- NOTE | 2021-10-22 11:06 | PC.NURSE ---
Day shift: paperwork signed and all questions answered. Pts Spouse just arrived at 1105 to take him home. Pt has all personal belongings. Spouse has picked up Pt MD scripts. CMS remains intact. Dressing CDI. Taken to car via WC by INTERNET MARKETER at approx [phone]. Pt's Spouse is driving him home.
--- NOTE | 2021-10-22 12:27 | CM.IDA ---
Initial DCP Assessment Note Pt is a 71 yo male, resident of [place], now POD#1 from right shoulder surgery by Dr Vazquez PCP: Sang Velazquez Payer: Hardik GARCIA Reviewed chart, pt discussed in multidisciplinary rounds this morning. Therapy has cleared pt for return home w/family to assist and pt has planned for home, DC order from Ortho has already been initiated this morning. No needs expected from DC planning team although will remain available in case this changes today. CADEN Bryant
== END 2021-10-22 11:46 | disposition home or self-care (01) ==
LOC: OR 06:12 → AC 06:13
PROVIDERS: PCP Family Medicine; Referring Provider Orthopaedic Surgery; Visit Provider Orthopaedic Surgery
PROC: (CPT 23472; principal; 2021-10-21 09:15)
DX: M19.011 Primary osteoarthritis, right shoulder (principal); I48.91 Unspecified atrial fibrillation; G47.33 Obstructive sleep apnea (adult) (pediatric); I25.10 Atherosclerotic heart disease of native coronary artery without angina pectoris; I25.2 Old myocardial infarction; I10 Essential (primary) hypertension; E78.5 Hyperlipidemia, unspecified; K21.9 Gastro-esophageal reflux disease without esophagitis; F32.A Depression, unspecified; Z95.810 Presence of automatic (implantable) cardiac defibrillator; Z79.01 Long term (current) use of anticoagulants; Z95.5 Presence of coronary angioplasty implant and graft; Z87.891 Personal history of nicotine dependence
CPT/HCPCS: 23472; 36415; 64450; 73020; 85014; 85018; 97110; 97116; 97162; 97530; C1776; J0171; J0690; J1100; J2250; J2405; J3010

== ENCOUNTER → 2021-12-09 11:55 | Outpatient (CLI) | payer OTHER, SELFPAY ==
[2021-10-21 12:45] VITALS: BMI 29.4
[2021-12-09 13:45] LABS: Alanine Aminotransferase 25 IU/L (<50); Albumin 4.5 g/dL (3.5-5.0); Albumin Globulin Ratio 1.4 (1.0-2.8); Alkaline Phosphatase 54 U/L (38-126); Aspartate Aminotransferase 25 IU/L (17-59); Bilirubin Total 0.5 mg/dL (0.2-1.3); Blood Urea Nitrogen 27 mg/dL (9-20); Calcium 9.2 mg/dL (8.4-10.2); Carbon Dioxide 25 mmol/L (22-32); Chloride 105 mmol/L (98-107); Estimated Glomerular Filt Rate > 60 mL/min (>60); Globulin 3.3 g/dL (1.7-4.1); Glucose 122 mg/dL (80-110); HEMOLYSIS < 15 (0-50); Potassium 4.1 mmol/L (3.4-5.1); Sodium 140 mmol/L (137-145); Total Protein 7.8 g/dL (6.3-8.2)
== END ==
PROVIDERS: Family Provider Family Medicine; PCP Family Medicine; Referring Provider Nurse Practitioner; Visit Provider Nurse Practitioner
DX: I25.5 Ischemic cardiomyopathy (principal)
CPT/HCPCS: 36415; 80053

== ENCOUNTER 2022-03-03 08:30 | Outpatient (RCR) | payer OTHER, SELFPAY ==
[2021-10-21 12:45] VITALS: BMI 29.4
== END 2022-03-03 10:30 ==
LOC: CAR 08:30
PROVIDERS: Family Provider Family Medicine; PCP Family Medicine; Referring Provider Family Medicine; Visit Provider Family Medicine
DX: I50.42 Chronic combined systolic (congestive) and diastolic (congestive) heart failure (principal)
CPT/HCPCS: 93798

== ENCOUNTER 2022-03-23 08:15 | Outpatient (RCR) | payer OTHER, SELFPAY ==
[2021-10-21 12:45] VITALS: BMI 29.4
--- NOTE | 2021-12-01 15:51 | PT.OIE ---
Current Diagnoses Primary osteoarthritis, right shoulder (12/01/21) Past Medical History (Last Reviewed 10/22/21 @ 08:51 by Lee Warren PA-C) Anxiety Back pain CAD (coronary artery disease) COPD (chronic obstructive pulmonary disease) Degenerative joint disease (DJD) of hip Depression Esophageal reflux History of cardioversion HLD (hyperlipidemia) HTN (hypertension) Ischemic cardiomyopathy Mitral valve insufficiency Myocardial infarction (01/21/98) MAR (obstructive sleep apnea) Osteoarthritis Pacemaker (09/01/15) Paroxysmal A-fib Past Surgical History (Last Reviewed 10/22/21 @ 08:51 by Lee Warren PA-C) H/O vasectomy History of cardiac cath History of cardiac radiofrequency ablation Hx of bilateral cataract extraction Hx of heart artery stent (2002) Hx of heart artery stent (1997) Hx of tonsillectomy Status post epidural steroid injection Visit Care Team Role Provider Type Sang Velazquez MD Family Provider Physician Primary Care Provider Specialty: Family Practice Address: [address] [place] [address], [id number] Email: [email or web address] Jan Vazquez MD Attending Provider Physician Referring Provider Specialty: Orthopedics Orthopedic Surgery Address: [address] [place] [address], [address] Email: [email or web address] Physical Therapy Initial Evaluation PT-OP-A Visit Information Start: 11/30/21 20:15 Freq: Status: Active Protocol: Document 12/01/21 10:28 AMB (Rec: 12/01/21 10:42 AMB [id number]) Out-Patient Physical Therapy Visit Information Visit Information Visit Type Initial Evaluation Visit Start Time 10:30 Visit Stop Time 11:15 Total Visit Minutes 45 Visit Number 1 Precautions Precautions Pacemaker DOS: 10/21 Protocol 6-12 weeks: range of motion unlimited, AROM, elastic cord exercises. Avoid extreme stretching and weight training until after 12 weeks. PT-OP-B Current Condition Start: 11/30/21 20:15 Freq: Status: Active Protocol: Document 12/01/21 10:28 AMB (Rec: 12/01/21 10:42 AMB [id number]) Current Condition History of Current Condition Onset Date 10/21/21 Current Complaints R reverse total shoulder History of Current Condition Pt attends PT after shoulder surgery, did have some pain after quickly moving shoulder while making bed, but otherwise hasn't had much pain . Has been doing pendulums and wrist/hand exercises at home. Saw two days ago and was told he could return to golfing, X-ray was all good . 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 PT-OP-C Subjective Start: 11/30/21 20:15 Freq: Status: Active Protocol: Document 12/01/21 10:30 AMB (Rec: 12/01/21 15:40 AMB [id number]) Patient Questionnaires Quick Dash- Upper Extremity Quick Dash UE Score 50 Quick Dash UE Impairment 40 to 59% Impaired (Score 40- 59) PT-OP-K Range of Motion Start: 11/30/21 20:15 Freq: Status: Active Protocol: Document 12/01/21 10:43 AMB (Rec: 12/01/21 11:22 AMB [id number]) Shoulder Goniometric Range of Motion Shoulder Right Passive Shoulder ROM WFL No Testing Position Supine Flexion 74 Abduction 55 External Rotation at 45 degrees 0 Abduction Internal Rotation 45 Comments IR at 45 abd PT-OP-M Strength Start: 11/30/21 20:15 Freq: Status: Active Protocol: Document 12/01/21 10:30 AMB (Rec: 12/01/21 15:40 AMB [id number]) Shoulder Strength Shoulder Manual Muscle Testing Right Flexion 3 Fair Abduction (C5) 3 Fair External Rotation 3 Fair Internal Rotation 4- Good- PT-OP-Q Treatments Start: 11/30/21 20:15 Freq: Status: Active Protocol: Document 12/01/21 10:30 AMB (Rec: 12/01/21 15:02 AMB [id number]) Therapeutic Exercises Supine Exercises AAROM Supine Exercise Name dowel: flexion, abduction Reps/Minutes 5x5 Comments cued gentle Sidelying Exercises ER AROM Side right Reps/Minutes 1x10 PT-OP-T Assessment and Plan Start: 11/30/21 20:15 Freq: Status: Active Protocol: Document 12/01/21 10:30 AMB (Rec: 12/01/21 15:40 AMB [id number]) Physical Therapy Assessment Rehab Potential Rehabilitation Potential Good Evaluation Complexity Number of Personal Factors/Comorbidities 1-2 Number of Body Systems Impaired 4 or More Clinical Presentation at Evaluation Stable Impairments Impairments Activity Tolerance,Functional Activities,Functional Mobility ,Posture,ROM,Strength Goals Three Impairment Return to activity Short Term Goal (STG) Hernandez will return to all dressing without shoulder pain . STG Duration 5 weeks Hay Sorter Goal (LTG) Hernandez will play 18 holes of golf without shoulder pain. LTG Duration 10 weeks Two Impairment Strength Short Term Goal (STG) Hernandez will lift 10 pounds to chest height without an increase in pain. STG Duration 5 weeks Correction Goal (LTG) Hernandez will be independent and consistent with a HEP of stretching and strengthening. LTG Duration 10 weeks One Impairment ROM Short Term Goal (STG) Hernandez will improve his R PROM to 90 degrees of flexion. STG Duration 5 weeks Hay Sorter Goal (LTG) Hernandez will improve his R AROM to 90 degrees of abduction. LTG Duration 10 weeks Assessment Summary Assessment Hernandez presents s/p right reverse total shoulder on 10/21. He presents with good pain control, and per his report his orthopedist has given him the ok to return to golfing. He does present with weakness throughout the shoulder complex, worst with external rotation and tightness into flexion and abduction. He tends to compensate with shoulder elevation. He will benefit from physical therapy for progressive stretching and strengthening so that he can safely return to golf, piano tuning and overall use the right arm more functionally. Physical Therapy Plan Frequency and Duration Frequency of Treatment 2x/Week Duration of Treatment 10 weeks Plan of Care Start Date 12/01/21 Plan of Care End Date 02/09/22 Therapeutic Interventions Therapeutic Interventions Home Exercise Program,Joint Mobilizations,Manual Therapy, Neuromuscular Re-education, Self-Care/Home Management, Therapeutic Activities, Therapeutic Exercises Modalities Cold Pack/Ice Massage,Hot Packs Next Visit Focus/Plan Next Note Type Treatment Note Next Visit Plan begin with AAROM, progress gentle strengthening. Protocol per Dr. Vazquez: from 6 weeks to 12 weeks: resisted elastic cord, active range, range of motion unlimited, forward punch, IR, ER, shrugs, rows.
--- NOTE | 2021-12-01 15:53 | PT.OPPOC ---
Physical, Occupational & Speech Therapy At [facility] Current Diagnoses Primary osteoarthritis, right shoulder (12/01/21) Visit Care Team Role Provider Type Sang Velazquez MD Family Provider Physician Primary Care Provider Specialty: Family Practice Address: [address] [place], [address] Email: [email or web address] Jan Vazquez MD Attending Provider Physician Referring Provider Specialty: Orthopedics Orthopedic Surgery Address: [address] [place] [address], [address] Email: [email or web address] Plan Of Care PT-OP-T Assessment and Plan Start: 11/30/21 20:15 Freq: Status: Active Protocol: Document 12/01/21 10:30 AMB (Rec: 12/01/21 15:40 AMB [id number]) Physical Therapy Assessment Rehab Potential Rehabilitation Potential Good Evaluation Complexity Number of Personal Factors/Comorbidities 1-2 Number of Body Systems Impaired 4 or More Clinical Presentation at Evaluation Stable Impairments Impairments Activity Tolerance,Functional Activities,Functional Mobility ,Posture,ROM,Strength Goals Three Impairment Return to activity Short Term Goal (STG) Hernandez will return to all dressing without shoulder pain . STG Duration 5 weeks Jail Goal (LTG) Hernandez will play 18 holes of golf without shoulder pain. LTG Duration 10 weeks Two Impairment Strength Short Term Goal (STG) Hernandez will lift 10 pounds to chest height without an increase in pain. STG Duration 5 weeks Jail Goal (LTG) Hernandez will be independent and consistent with a HEP of stretching and strengthening. LTG Duration 10 weeks One Impairment ROM Short Term Goal (STG) Hernandez will improve his R PROM to 90 degrees of flexion. STG Duration 5 weeks Jail Goal (LTG) Hernandez will improve his R AROM to 90 degrees of abduction. LTG Duration 10 weeks Assessment Summary Assessment Hernandez presents s/p right reverse total shoulder on 10/21. He presents with good pain control, and per his report his orthopedist has given him the ok to return to golfing. He does present with weakness throughout the shoulder complex, worst with external rotation and tightness into flexion and abduction. He tends to compensate with shoulder elevation. He will benefit from physical therapy for progressive stretching and strengthening so that he can safely return to golf, piano tuning and overall use the right arm more functionally. Physical Therapy Plan Frequency and Duration Frequency of Treatment 2x/Week Duration of Treatment 10 weeks Plan of Care Start Date 12/01/21 Plan of Care End Date 02/09/22 Therapeutic Interventions Therapeutic Interventions Home Exercise Program,Joint Mobilizations,Manual Therapy, Neuromuscular Re-education, Self-Care/Home Management, Therapeutic Activities, Therapeutic Exercises Modalities Cold Pack/Ice Massage,Hot Packs Next Visit Focus/Plan Next Note Type Treatment Note Next Visit Plan begin with AAROM, progress gentle strengthening. Protocol per Dr. Vazquez: from 6 weeks to 12 weeks: resisted elastic cord, active range, range of motion unlimited, forward punch, IR, ER, shrugs, rows. Plan of Care Dates Plan of Care Start Date 12/01/21 Plan of Care End Date 02/09/22 Electronically Signed by: Lesli Navarro, PT 12/01/21 2112 If you are in agreement with this Plan of Care, please return a signed and dated copy. I have reviewed this Plan of Care and certify that the skilled therapy services above are required to meet the patient?s needs. Physician Signature Date Printed Name and Credentials Clinical Instructor Signature Printed Name and Credentials
--- NOTE | 2021-12-04 20:47 | PT.OTN ---
Current Diagnoses Primary osteoarthritis, right shoulder (12/04/21) Physical Therapy Treatment Note PT-OP-A Visit Information Start: 11/30/21 20:15 Freq: Status: Active Protocol: Document 12/04/21 13:48 AMB (Rec: 12/04/21 14:37 AMB [id number]) Out-Patient Physical Therapy Visit Information Visit Information Visit Type Treatment Note Visit Start Time 13:45 Visit Stop Time 14:30 Total Visit Minutes 45 Visit Number 2 PT-OP-B Current Condition Start: 11/30/21 20:15 Freq: Status: Active Protocol: Document 12/01/21 10:28 AMB (Rec: 12/01/21 10:42 AMB [id number]) Current Condition History of Current Condition Onset Date 10/21/21 Current Complaints R reverse total shoulder History of Current Condition Pt attends PT after shoulder surgery, did have some pain after quickly moving shoulder while making bed, but otherwise hasn't had much pain . Has been doing pendulums and wrist/hand exercises at home. Saw two days ago and was told he could return to golfing, X-ray was all good . 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 Treatment Goals Patient/Caregiver Goals Return golfing, being able to tune piano (needs to be able to lift arms to shoulder height), Personal Factors Other Personal Factors That May Effect R knee pain, Hx [place] (pacemaker) Therapy/Recovery . PT-OP-C Subjective Start: 11/30/21 20:15 Freq: Status: Active Protocol: Document 12/04/21 13:48 AMB (Rec: 12/04/21 14:37 AMB [id number]) OP-PT Subjective Patient Comments Patient Comments Pt was mildly sore after evaluation, has been doing exercises, ER AROM is challenging, arm just moves a little, but otherwise going well. PT-OP-K Range of Motion Start: 11/30/21 20:15 Freq: Status: Active Protocol: Document 12/01/21 10:43 AMB (Rec: 12/01/21 11:22 AMB [id number]) Shoulder Goniometric Range of Motion Shoulder Right Passive Shoulder ROM WFL No Testing Position Supine Flexion 74 Abduction 55 External Rotation at 45 degrees 0 Abduction Internal Rotation 45 Comments IR at 45 abd PT-OP-M Strength Start: 11/30/21 20:15 Freq: Status: Active Protocol: Document 12/01/21 10:30 AMB (Rec: 12/01/21 15:40 AMB [id number]) Shoulder Strength Shoulder Manual Muscle Testing Right Flexion 3 Fair Abduction (C5) 3 Fair External Rotation 3 Fair Internal Rotation 4- Good- PT-OP-Q Treatments Start: 11/30/21 20:15 Freq: Status: Active Protocol: Document 12/04/21 13:48 AMB (Rec: 12/04/21 14:37 AMB [id number]) Therapeutic Exercises Supine Exercises AAROM Supine Exercise Name dowel: flexion, abduction Reps/Minutes 5x5 Comments cued gentle Standing Exercises isometrics Standing Exercise Name extension, IR, abd Side right Reps/Minutes 5x10 ea t band rows Side bilateral Resistance #1 t band Comments cued reduced UT recruitment wall walk Standing Exercise Name flexion Side right Reps/Minutes 30x5 Comments allowed slight scaption to decrease discomfort Manual Therapy Treatment Soft Tissue Mobilization R shoulder Body Location biceps, deltoid, scar Mobilization Type Myofascial Release,Strumming Other Other Manual Treatments PROM: flex, abd, IR, ER PT-OP-T Assessment and Plan Start: 11/30/21 20:15 Freq: Status: Active Protocol: Document 12/04/21 13:45 AMB (Rec: 12/05/21 20:37 AMB [id number]) Physical Therapy Assessment Goals Three Impairment Return to activity Short Term Goal (STG) Hernandez will return to all dressing without shoulder pain . STG Duration 5 weeks Correction Goal (LTG) Hernandez will play 18 holes of golf without shoulder pain. LTG Duration 10 weeks Two Impairment Strength Short Term Goal (STG) Hernandez will lift 10 pounds to chest height without an increase in pain. STG Duration 5 weeks Transfer And Line Up Worker Goal (LTG) Hernandez will be independent and consistent with a HEP of stretching and strengthening. LTG Duration 10 weeks One Impairment ROM Short Term Goal (STG) Hernandez will improve his R PROM to 90 degrees of flexion. STG Duration 5 weeks Correction Goal (LTG) Hernandez will improve his R AROM to 90 degrees of abduction. LTG Duration 10 weeks Assessment Summary Assessment Hernandez tolerated exercises well, walk up wall was challenging but not painful. Weakness continues navin in ER, but isometrics went well. Physical Therapy Plan Next Visit Focus/Plan Next Note Type Treatment Note Next Visit Plan begin with AAROM, progress gentle strengthening. Protocol per Dr. Vazquez: from 6 weeks to 12 weeks: resisted elastic cord, active range, range of motion unlimited, forward punch, IR, ER, shrugs, rows.
--- NOTE | 2021-12-09 15:57 | PT.OTN ---
Current Diagnoses Primary osteoarthritis, right shoulder (12/09/21) Physical Therapy Treatment Note PT-OP-A Visit Information Start: 11/30/21 20:15 Freq: Status: Active Protocol: Document 12/09/21 14:34 [facility] (Rec: 12/09/21 15:56 [facility] [id number]) Out-Patient Physical Therapy Visit Information Visit Information Visit Type Treatment Note Visit Start Time 14:35 Visit Stop Time 15:25 Total Visit Minutes 50 Visit Number 3 Number of YOUTH ASSOCIATE Visits 0 PT-OP-B Current Condition Start: 11/30/21 20:15 Freq: Status: Active Protocol: Document 12/01/21 10:28 AMB (Rec: 12/01/21 10:42 AMB [id number]) Current Condition History of Current Condition Onset Date 10/21/21 Current Complaints R reverse total shoulder History of Current Condition Pt attends PT after shoulder surgery, did have some pain after quickly moving shoulder while making bed, but otherwise hasn't had much pain . Has been doing pendulums and wrist/hand exercises at home. Saw two days ago and was told he could return to golfing, X-ray was all good . 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 Treatment Goals Patient/Caregiver Goals Return golfing, being able to tune piano (needs to be able to lift arms to shoulder height), Personal Factors Other Personal Factors That May Effect R knee pain, Hx [place] (pacemaker) Therapy/Recovery . PT-OP-C Subjective Start: 11/30/21 20:15 Freq: Status: Active Protocol: Document 12/09/21 14:34 [facility] (Rec: 12/09/21 15:56 [facility] [id number]) OP-PT Subjective Patient Comments Patient Comments Pt reports soreness with activity but its been good. He feels lik ethe shoulder is doing well Patient Reported Progress Improving PT-OP-K Range of Motion Start: 11/30/21 20:15 Freq: Status: Active Protocol: Document 12/01/21 10:43 AMB (Rec: 12/01/21 11:22 AMB [id number]) Shoulder Goniometric Range of Motion Shoulder Right Passive Shoulder ROM WFL No Testing Position Supine Flexion 74 Abduction 55 External Rotation at 45 degrees 0 Abduction Internal Rotation 45 Comments IR at 45 abd PT-OP-M Strength Start: 11/30/21 20:15 Freq: Status: Active Protocol: Document 12/01/21 10:30 AMB (Rec: 12/01/21 15:40 AMB [id number]) Shoulder Strength Shoulder Manual Muscle Testing Right Flexion 3 Fair Abduction (C5) 3 Fair External Rotation 3 Fair Internal Rotation 4- Good- PT-OP-Q Treatments Start: 11/30/21 20:15 Freq: Status: Active Protocol: Document 12/09/21 14:34 [facility] (Rec: 12/09/21 15:56 [facility] [id number]) Therapeutic Exercises Supine Exercises AAROM Supine Exercise Name dowel: flexion, abduction Reps/Minutes 5x5 Comments cued gentle Sidelying Exercises ER AROM Side right Reps/Minutes 1x10 Sitting Exercises pully Sitting Exercise Name flex, scaption, abd Side right Reps/Minutes 15 Comments AAROM Standing Exercises isometrics Standing Exercise Name extension, IR, abd Side right Reps/Minutes 5x10 ea t band rows Side bilateral Resistance #1 t band Reps/Minutes 20 Comments cued reduced UT recruitment wall walk Standing Exercise Name flexion Side right Reps/Minutes 15x5 Comments allowed slight scaption to decrease discomfort Manual Therapy Treatment Soft Tissue Mobilization R shoulder Body Location biceps, deltoid, pec, UT Mobilization Type Myofascial Release,Rolling, Strumming Intensity/Depth Moderate Other Other Manual Treatments PROM: flex, abd, IR, ER PT-OP-R Modalities Start: 11/30/21 20:15 Freq: Status: Active Protocol: Document 12/09/21 14:34 [facility] (Rec: 12/09/21 15:56 [facility] [id number]) Hot Pack/Cold Pack Treatment Cold Pack Location R shoulder Patient Position Hooklying Treatment Duration (minutes) 10 PT-OP-T Assessment and Plan Start: 11/30/21 20:15 Freq: Status: Active Protocol: Document 12/09/21 14:34 [facility] (Rec: 12/09/21 15:56 [facility] [id number]) Physical Therapy Assessment Goals Three Impairment Return to activity Short Term Goal (STG) Hernandez will return to all dressing without shoulder pain . STG Duration 5 weeks Interface Analyst Goal (LTG) Hernandez will play 18 holes of golf without shoulder pain. LTG Duration 10 weeks Two Impairment Strength Short Term Goal (STG) Hernandez will lift 10 pounds to chest height without an increase in pain. STG Duration 5 weeks Halfway Goal (LTG) Hernandez will be independent and consistent with a HEP of stretching and strengthening. LTG Duration 10 weeks One Impairment ROM Short Term Goal (STG) Hernandez will improve his R PROM to 90 degrees of flexion. STG Duration 5 weeks Interface Analyst Goal (LTG) Hernandez will improve his R AROM to 90 degrees of abduction. LTG Duration 10 weeks Assessment Summary Assessment Pt did well iwth exercises and requires cues mostly only for scap position during exercises. He felt relief w/ manual treatment. Physical Therapy Plan Frequency and Duration Frequency of Treatment 2x/Week Duration of Treatment 10 weeks Plan of Care Start Date 12/01/21 Plan of Care End Date 02/09/22 Next Visit Focus/Plan Next Note Type Treatment Note
--- NOTE | 2021-12-11 09:45 | PT.OTN ---
Current Diagnoses Primary osteoarthritis, right shoulder (12/11/21) Physical Therapy Treatment Note PT-OP-A Visit Information Start: 11/30/21 20:15 Freq: Status: Active Protocol: Document 12/11/21 09:03 SP (Rec: 12/11/21 09:48 SP [id number]) Out-Patient Physical Therapy Visit Information Visit Information Visit Type Treatment Note Visit Start Time 09:03 Visit Stop Time 09:45 Total Visit Minutes 42 Visit Number 4 Number of FIREFIGHTER TYPE ONE Visits 1 Precautions Precautions Pacemaker DOS: 10/21 Protocol 6-12 weeks: range of motion unlimited, AROM, elastic cord exercises. Avoid extreme stretching and weight training until after 12 weeks. PT-OP-B Current Condition Start: 11/30/21 20:15 Freq: Status: Active Protocol: Document 12/01/21 10:28 AMB (Rec: 12/01/21 10:42 AMB [id number]) Current Condition History of Current Condition Onset Date 10/21/21 Current Complaints R reverse total shoulder History of Current Condition Pt attends PT after shoulder surgery, did have some pain after quickly moving shoulder while making bed, but otherwise hasn't had much pain . Has been doing pendulums and wrist/hand exercises at home. Saw two days ago and was told he could return to golfing, X-ray was all good . 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 Treatment Goals Patient/Caregiver Goals Return golfing, being able to tune piano (needs to be able to lift arms to shoulder height), Personal Factors Other Personal Factors That May Effect R knee pain, Hx [place] (pacemaker) Therapy/Recovery . PT-OP-C Subjective Start: 11/30/21 20:15 Freq: Status: Active Protocol: Document 12/11/21 09:03 SP (Rec: 12/11/21 09:48 SP [id number]) OP-PT Subjective Patient Comments Patient Comments Pt reports shld felt better with manual, ice and some activity last tx. Feeling moving little better. PT-OP-K Range of Motion Start: 11/30/21 20:15 Freq: Status: Active Protocol: Document 12/01/21 10:43 AMB (Rec: 12/01/21 11:22 AMB [id number]) Shoulder Goniometric Range of Motion Shoulder Right Passive Shoulder ROM WFL No Testing Position Supine Flexion 74 Abduction 55 External Rotation at 45 degrees 0 Abduction Internal Rotation 45 Comments IR at 45 abd PT-OP-M Strength Start: 11/30/21 20:15 Freq: Status: Active Protocol: Document 12/01/21 10:30 AMB (Rec: 12/01/21 15:40 AMB [id number]) Shoulder Strength Shoulder Manual Muscle Testing Right Flexion 3 Fair Abduction (C5) 3 Fair External Rotation 3 Fair Internal Rotation 4- Good- PT-OP-Q Treatments Start: 11/30/21 20:15 Freq: Status: Active Protocol: Document 12/11/21 09:03 SP (Rec: 12/11/21 09:48 SP [id number]) Therapeutic Exercises Supine Exercises AROM serratus press Supine Exercise Name added to HEP Equipment Used wand Reps/Minutes 5x5 reps Comments good feedback, painfree AAROM Supine Exercise Name dowel: flexion 139*, abduction 101*, ER 20* Side right Resistance ABD 30deg w/ ER Equipment Used wand Reps/Minutes 5x5 Comments cued gentle Sitting Exercises pully Sitting Exercise Name flex, scaption, abd Side right Resistance AAROM Equipment Used mirror for self level shld feedback Reps/Minutes 15 Comments good level shld with mirror use Standing Exercises ER wand Standing Exercise Name added to HEP as alternative to supine arm alignment Side right Resistance AAROM Equipment Used wand, towel under arm and behind elbow Reps/Minutes x10 Comments cued maintain arm close to side and miantain wall walk Standing Exercise Name flexion- 9/2 hold for now due to UT recruitment Side right Reps/Minutes 15x5 Comments allowed slight scaption to decrease discomfort Manual Therapy Treatment Soft Tissue Mobilization R shoulder Body Location R biceps, deltoid, pec, UT, Rhomboid, subscap, scar Mobilization Type Myofascial Release,Rolling, Strumming,Sustained Pressure Intensity/Depth Moderate Joint Mobilizations scapulothoracic Joint R Direction posterior, inferior Grade II Body Position Sidelying Comments manual and ed on scapular ROM with ex, awareness of Rhomboid and LT support for stabilization during ex. PT-OP-R Modalities Start: 11/30/21 20:15 Freq: Status: Active Protocol: Document 12/09/21 14:34 [facility] (Rec: 12/09/21 15:56 [facility] [id number]) Hot Pack/Cold Pack Treatment Cold Pack Location R shoulder Patient Position Hooklying Treatment Duration (minutes) 10 PT-OP-T Assessment and Plan Start: 11/30/21 20:15 Freq: Status: Active Protocol: Document 12/11/21 09:03 SP (Rec: 12/11/21 09:48 SP [id number]) Physical Therapy Assessment Goals Three Impairment Return to activity Short Term Goal (STG) Hernandez will return to all dressing without shoulder pain . STG Duration 5 weeks Care Home Goal (LTG) Hernandez will play 18 holes of golf without shoulder pain. LTG Duration 10 weeks Two Impairment Strength Short Term Goal (STG) Hernandez will lift 10 pounds to chest height without an increase in pain. STG Duration 5 weeks Care Home Goal (LTG) Hernandez will be independent and consistent with a HEP of stretching and strengthening. LTG Duration 10 weeks One Impairment ROM Short Term Goal (STG) Hernandez will improve his R PROM to 90 degrees of flexion. STG Duration 5 weeks Care Home Goal (LTG) Hernandez will improve his R AROM to 90 degrees of abduction. LTG Duration 10 weeks Assessment Summary Assessment Pt improved AAROM FF and less UT recruitment, hold wall walking and add pulleys at home for decrease UT assist better form in PT today. Added supine ER wand for best set up performance and painfree, good feedback Serratus press and scapulothoracic mobility to allow decrease R scap winging. Physical Therapy Plan Frequency and Duration Frequency of Treatment 2x/Week Duration of Treatment 10 weeks Plan of Care Start Date 12/01/21 Plan of Care End Date 02/09/22 Therapeutic Interventions Therapeutic Interventions Home Exercise Program,Joint Mobilizations,Manual Therapy, Neuromuscular Re-education, Self-Care/Home Management, Therapeutic Activities, Therapeutic Exercises Modalities Cold Pack/Ice Massage,Hot Packs Next Visit Focus/Plan Next Note Type Treatment Note Next Visit Plan Continue: AAROM: recheck wand HEP and pulleys, progress gentle strengthening. Protocol per Dr. Vazquez: from 6 weeks to 12 weeks: resisted elastic cord, active range, range of motion unlimited, IR, ER, shrugs, rows.
--- NOTE | 2021-12-15 09:05 | PT.OTN ---
Current Diagnoses Primary osteoarthritis, right shoulder (12/15/21) Physical Therapy Treatment Note PT-OP-A Visit Information Start: 11/30/21 20:15 Freq: Status: Active Protocol: Document 12/15/21 08:20 NBM (Rec: 12/15/21 09:03 [facility] [id number]) Out-Patient Physical Therapy Visit Information Visit Information Visit Type Treatment Note Visit Start Time 08:15 Visit Stop Time 09:00 Total Visit Minutes 45 Visit Number 5 Number of BRIDGE INSTRUCTOR Visits 2 Precautions Precautions Pacemaker DOS: 10/21 Protocol 6-12 weeks: range of motion unlimited, AROM, elastic cord exercises. Avoid extreme stretching and weight training until after 12 weeks. PT-OP-B Current Condition Start: 11/30/21 20:15 Freq: Status: Active Protocol: Document 12/01/21 10:28 AMB (Rec: 12/01/21 10:42 AMB [id number]) Current Condition History of Current Condition Onset Date 10/21/21 Current Complaints R reverse total shoulder History of Current Condition Pt attends PT after shoulder surgery, did have some pain after quickly moving shoulder while making bed, but otherwise hasn't had much pain . Has been doing pendulums and wrist/hand exercises at home. Saw two days ago and was told he could return to golfing, X-ray was all good . 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 Treatment Goals Patient/Caregiver Goals Return golfing, being able to tune piano (needs to be able to lift arms to shoulder height), Personal Factors Other Personal Factors That May Effect R knee pain, Hx [place] (pacemaker) Therapy/Recovery . PT-OP-C Subjective Start: 11/30/21 20:15 Freq: Status: Active Protocol: Document 12/15/21 08:20 NBM (Rec: 12/15/21 09:03 [facility] [id number]) OP-PT Subjective Patient Comments Patient Comments Pt states his shoulder is feeling much better. He thought he had pulleys at home but can't find them so will purchase some. I am back to almost normal except for certain things I can't reach like overhead, behind his back and weak off to the side. PT-OP-K Range of Motion Start: 11/30/21 20:15 Freq: Status: Active Protocol: Document 12/01/21 10:43 AMB (Rec: 12/01/21 11:22 AMB [id number]) Shoulder Goniometric Range of Motion Shoulder Right Passive Shoulder ROM WFL No Testing Position Supine Flexion 74 Abduction 55 External Rotation at 45 degrees 0 Abduction Internal Rotation 45 Comments IR at 45 abd PT-OP-M Strength Start: 11/30/21 20:15 Freq: Status: Active Protocol: Document 12/01/21 10:30 AMB (Rec: 12/01/21 15:40 AMB [id number]) Shoulder Strength Shoulder Manual Muscle Testing Right Flexion 3 Fair Abduction (C5) 3 Fair External Rotation 3 Fair Internal Rotation 4- Good- PT-OP-Q Treatments Start: 11/30/21 20:15 Freq: Status: Active Protocol: Document 12/15/21 08:20 NBM (Rec: 12/15/21 09:03 NBM [id number]) Therapeutic Exercises Supine Exercises AROM serratus press Supine Exercise Name added to HEP Equipment Used wand Reps/Minutes 5x5 reps Comments good feedback, painfree AAROM Supine Exercise Name dowel: flexion 139*, abduction 101*, ER 20* Side right Resistance ABD 30deg w/ ER Equipment Used wand Reps/Minutes 5x5 Comments cued gentle Sitting Exercises pully Sitting Exercise Name flex, scaption, abd, IR Side right Resistance AAROM Equipment Used mirror for self level shld feedback Reps/Minutes 15 Comments IR dc'd d/t tingling. Standing Exercises ER wand Standing Exercise Name added to HEP as alternative to supine arm alignment Side right Resistance AAROM Equipment Used wand, towel under arm and behind elbow Reps/Minutes x10 Comments cued maintain arm close to side and miantain isometrics Standing Exercise Name extension, IR, abd Side right Reps/Minutes 5x10 ea t band rows Side bilateral Resistance #1 t band Reps/Minutes 20 Comments cued reduced UT recruitment Manual Therapy Treatment Soft Tissue Mobilization R shoulder Body Location R biceps, deltoid, pec, UT, Rhomboid, subscap, scar Mobilization Type Myofascial Release,Rolling, Strumming,Sustained Pressure Intensity/Depth Moderate PT-OP-R Modalities Start: 11/30/21 20:15 Freq: Status: Active Protocol: Document 12/15/21 08:20 NBM (Rec: 12/17/21 01:59 [facility] [phone]-) Hot Pack/Cold Pack Treatment Cold Pack Location R shoulder Patient Position Hooklying Treatment Duration (minutes) 7 Patient Tolerance Good PT-OP-T Assessment and Plan Start: 11/30/21 20:15 Freq: Status: Active Protocol: Document 12/15/21 08:20 [facility] (Rec: 12/15/21 09:03 [facility] [id number]) Physical Therapy Assessment Goals Three Impairment Return to activity Short Term Goal (STG) Hernandez will return to all dressing without shoulder pain . 12/15/21: Belt is the only issue because of reaching around back. STG Duration 5 weeks Registered Dental Hygienist Goal (LTG) Hernandez will play 18 holes of golf without shoulder pain. LTG Duration 10 weeks Two Impairment Strength Short Term Goal (STG) Hernandez will lift 10 pounds to chest height without an increase in pain. STG Duration 5 weeks Registered Dental Hygienist Goal (LTG) Hernandez will be independent and consistent with a HEP of stretching and strengthening. LTG Duration 10 weeks One Impairment ROM Short Term Goal (STG) Hernandez will improve his R PROM to 90 degrees of flexion. STG Duration 5 weeks Registered Dental Hygienist Goal (LTG) Hernandez will improve his R AROM to 90 degrees of abduction. LTG Duration 10 weeks Assessment Summary Assessment Pt requires cues for UT overrecruitment throughout treatment session - self- awareness improves with repetition. Pt able to training designer pulleys w/ R hand for AAROM R luis IR but unable to maintain training designer on sheet or long towel. Decreased palpable tightness to R UT is noted with manual therapy. Physical Therapy Plan Next Visit Focus/Plan Next Note Type Treatment Note Next Visit Plan Continue: AAROM: recheck wand HEP and pulleys, progress gentle strengthening. Protocol per Dr. Vazquez: from 6 weeks to 12 weeks: resisted elastic cord, active range, range of motion unlimited, IR, ER, shrugs, rows.
--- NOTE | 2021-12-17 11:21 | PT.OTN ---
Current Diagnoses Primary osteoarthritis, right shoulder (12/17/21) Physical Therapy Treatment Note PT-OP-A Visit Information Start: 11/30/21 20:15 Freq: Status: Active Protocol: Document 12/17/21 09:52 [facility] (Rec: 12/17/21 11:21 [facility] [id number]) Out-Patient Physical Therapy Visit Information Visit Information Visit Type Treatment Note Visit Start Time 10:35 Visit Stop Time 11:15 Total Visit Minutes 40 Visit Number 6 Number of CASHIER GREETER Visits 0 PT-OP-B Current Condition Start: 11/30/21 20:15 Freq: Status: Active Protocol: Document 12/01/21 10:28 AMB (Rec: 12/01/21 10:42 AMB [id number]) Current Condition History of Current Condition Onset Date 10/21/21 Current Complaints R reverse total shoulder History of Current Condition Pt attends PT after shoulder surgery, did have some pain after quickly moving shoulder while making bed, but otherwise hasn't had much pain . Has been doing pendulums and wrist/hand exercises at home. Saw two days ago and was told he could return to golfing, X-ray was all good . 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 Treatment Goals Patient/Caregiver Goals Return golfing, being able to tune piano (needs to be able to lift arms to shoulder height), Personal Factors Other Personal Factors That May Effect R knee pain, Hx [place] (pacemaker) Therapy/Recovery . PT-OP-C Subjective Start: 11/30/21 20:15 Freq: Status: Active Protocol: Document 12/17/21 09:52 [facility] (Rec: 12/17/21 11:21 [facility] [id number]) OP-PT Subjective Patient Comments Patient Comments Pt reports his shoulder is doing well. He is doing his exercises at home. PT-OP-K Range of Motion Start: 11/30/21 20:15 Freq: Status: Active Protocol: Document 12/01/21 10:43 AMB (Rec: 12/01/21 11:22 AMB [id number]) Shoulder Goniometric Range of Motion Shoulder Right Passive Shoulder ROM WFL No Testing Position Supine Flexion 74 Abduction 55 External Rotation at 45 degrees 0 Abduction Internal Rotation 45 Comments IR at 45 abd PT-OP-M Strength Start: 11/30/21 20:15 Freq: Status: Active Protocol: Document 12/01/21 10:30 AMB (Rec: 12/01/21 15:40 AMB [id number]) Shoulder Strength Shoulder Manual Muscle Testing Right Flexion 3 Fair Abduction (C5) 3 Fair External Rotation 3 Fair Internal Rotation 4- Good- PT-OP-Q Treatments Start: 11/30/21 20:15 Freq: Status: Active Protocol: Document 12/17/21 09:52 [facility] (Rec: 12/17/21 11:21 [facility] [id number]) Therapeutic Exercises Supine Exercises AROM serratus press Supine Exercise Name chest press to punch Equipment Used AROM tried but unable d/t pain Reps/Minutes 10 reps Comments wand AAROM AAROM Supine Exercise Name ER at side Side right Equipment Used AAROM ER at side Reps/Minutes 10 sec x5 Sidelying Exercises abd Side right Reps/Minutes 10 ER AROM Side right Reps/Minutes 1x10 Sitting Exercises pully Sitting Exercise Name flex, scaption, abd, IR Side right Resistance AAROM Equipment Used mirror for self level shld feedback Reps/Minutes 15 Comments comfortable range Standing Exercises ER Side right Equipment Used lvl 1 Reps/Minutes 15 Comments available range IR Side right Equipment Used L1 Reps/Minutes 2x10 t band rows Side bilateral Resistance #1 t band Reps/Minutes 20 Comments cued reduced UT recruitment Manual Therapy Treatment Soft Tissue Mobilization R shoulder Body Location R biceps, deltoid, pec, UT, Rhomboid, subscap, scar Mobilization Type Myofascial Release,Rolling, Strumming,Sustained Pressure Intensity/Depth Moderate Joint Mobilizations GH Joint R Direction distraction, post Grade II AC Joint R Direction gapping Grade II scapulothoracic Joint R Direction posterior, inferior Grade II Body Position Sidelying PT-OP-R Modalities Start: 11/30/21 20:15 Freq: Status: Active Protocol: Document 12/15/21 08:20 NB (Rec: 12/17/21 01:59 [facility] [phone]-) Hot Pack/Cold Pack Treatment Cold Pack Location R shoulder Patient Position Hooklying Treatment Duration (minutes) 7 Patient Tolerance Good PT-OP-T Assessment and Plan Start: 11/30/21 20:15 Freq: Status: Active Protocol: Document 12/17/21 09:52 [facility] (Rec: 12/17/21 11:21 [facility] [id number]) Physical Therapy Assessment Goals Three Impairment Return to activity Short Term Goal (STG) Hernandez will return to all dressing without shoulder pain . 12/15/21: Belt is the only issue because of reaching around back. STG Duration 5 weeks Group Home Goal (LTG) Hernandez will play 18 holes of golf without shoulder pain. LTG Duration 10 weeks Two Impairment Strength Short Term Goal (STG) Hernandez will lift 10 pounds to chest height without an increase in pain. STG Duration 5 weeks Group Home Goal (LTG) Hernandez will be independent and consistent with a HEP of stretching and strengthening. LTG Duration 10 weeks One Impairment ROM Short Term Goal (STG) Hernandez will improve his R PROM to 90 degrees of flexion. STG Duration 5 weeks Interior Design Principal Goal (LTG) Hernandez will improve his R AROM to 90 degrees of abduction. LTG Duration 10 weeks Assessment Summary Assessment Cont cueing needed for UT recruitment during exercises but pt gradually inc ROM overall. Tolerated re-add of IR behind back w/o tingling today when cued for posture. Physical Therapy Plan Frequency and Duration Frequency of Treatment 2x/Week Duration of Treatment 10 weeks Plan of Care Start Date 12/01/21 Plan of Care End Date 02/09/22 Next Visit Focus/Plan Next Note Type Treatment Note Next Visit Plan Protocol per Dr. Vazquez: from 6 weeks to 12 weeks: resisted elastic cord, active range, range of motion unlimited, IR, ER, shrugs, rows.
--- NOTE | 2021-12-21 09:45 | PT.OTN ---
Current Diagnoses Primary osteoarthritis, right shoulder (12/21/21) Physical Therapy Treatment Note PT-OP-A Visit Information Start: 11/30/21 20:15 Freq: Status: Active Protocol: Document 12/21/21 09:03 SP (Rec: 12/21/21 10:04 SP [id number]) Out-Patient Physical Therapy Visit Information Visit Information Visit Type Treatment Note Visit Start Time 09:03 Visit Stop Time 09:47 Total Visit Minutes 45 Visit Number 7 Number of CORSETIER Visits 1 Precautions Precautions Pacemaker DOS: 10/21 Protocol 6-12 weeks: range of motion unlimited, AROM, elastic cord exercises. Avoid extreme stretching and weight training until after 12 weeks. PT-OP-B Current Condition Start: 11/30/21 20:15 Freq: Status: Active Protocol: Document 12/01/21 10:28 AMB (Rec: 12/01/21 10:42 AMB [id number]) Current Condition History of Current Condition Onset Date 10/21/21 Current Complaints R reverse total shoulder History of Current Condition Pt attends PT after shoulder surgery, did have some pain after quickly moving shoulder while making bed, but otherwise hasn't had much pain . Has been doing pendulums and wrist/hand exercises at home. Saw two days ago and was told he could return to golfing, X-ray was all good . 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 Treatment Goals Patient/Caregiver Goals Return golfing, being able to tune piano (needs to be able to lift arms to shoulder height), Personal Factors Other Personal Factors That May Effect R knee pain, Hx [place] (pacemaker) Therapy/Recovery . PT-OP-C Subjective Start: 11/30/21 20:15 Freq: Status: Active Protocol: Document 12/21/21 09:03 SP (Rec: 12/21/21 10:04 SP [id number]) OP-PT Subjective Patient Comments Patient Comments Pt stated having R shld pain since Fri due to helping teach son how to tune piano and found reaching/ hold out to side and away from body like AB ER and now distal deltoid region hurting. Has been icing since Fri. Has been compliant with HEP can do. PT-OP-K Range of Motion Start: 11/30/21 20:15 Freq: Status: Active Protocol: Document 12/01/21 10:43 AMB (Rec: 12/01/21 11:22 AMB [id number]) Shoulder Goniometric Range of Motion Shoulder Right Passive Shoulder ROM WFL No Testing Position Supine Flexion 74 Abduction 55 External Rotation at 45 degrees 0 Abduction Internal Rotation 45 Comments IR at 45 abd PT-OP-M Strength Start: 11/30/21 20:15 Freq: Status: Active Protocol: Document 12/01/21 10:30 AMB (Rec: 12/01/21 15:40 AMB [id number]) Shoulder Strength Shoulder Manual Muscle Testing Right Flexion 3 Fair Abduction (C5) 3 Fair External Rotation 3 Fair Internal Rotation 4- Good- PT-OP-Q Treatments Start: 11/30/21 20:15 Freq: Status: Active Protocol: Document 12/21/21 09:03 SP (Rec: 12/21/21 10:04 SP [id number]) Therapeutic Exercises Supine Exercises AAROM Supine Exercise Name HEP review: FF 132 deg, ABD 96 deg, ER 30 deg (32 deg ABD) Side right Resistance Dowel AAROM Equipment Used towel under arm during ER Reps/Minutes 10 sec x5 Comments good form FF, cued neutral wrist and allow stretch hold end feel gain mob Sidelying Exercises open book Sidelying Exercise Name trialed in PT only today Side right Equipment Used tactile AAROM and cuing - assess again before send home. Reps/Minutes x6 reps Comments hand on head better vs long arm- improve scapthorac, pinch AC jt abd Side right Resistance AROM (measurement not taken approx 95-100deg) Reps/Minutes 10 reps Comments cued slow fluid movement, decrease no pain post manual ER AROM Sidelying Exercise Name HEP reviewed Side right Resistance AROM (not quite to neutral) Equipment Used towel roll under arm Reps/Minutes 1x10 Comments cued scap retract/depressed neutral, neutral wrist Sitting Exercises self STMs Sitting Exercise Name added to HEP: UT, LS, interscap- MWM Side right Equipment Used discussed ball wall with demo, performed theracane Comments good feedback response, MWM scap ROM, head nod/turn UT, LS stretch Sitting Exercise Name added to HEP Side right Reps/Minutes 30 x2 Comments cued tall posture, gentle overpressure if welcoming. pully Sitting Exercise Name flex, scaption, abd, IR Side right Resistance AAROM Equipment Used mirror for self level shld feedback Reps/Minutes 15 Comments discussed but not performed no UT recruitment Manual Therapy Treatment Soft Tissue Mobilization R shoulder Body Location R biceps, deltoid, pec, UT, Rhomboid, subscap, scar Mobilization Type Myofascial Release,Rolling, Strumming,Sustained Pressure, Other Intensity/Depth Moderate Comments manual and self instruction STMs, stretching, pin pec and AROM R arm for self STMs of pec and apply to neck head nods/turns Joint Mobilizations scapulothoracic Joint R Direction posterior, inferior Grade II Body Position Sidelying Comments manual and instructed prepare open book Self-Care/Home Management Treatment Education Patient Education Body Mechanics,Home Exercise Program,Posture Other Education Extra time spent self STMs ball/wall, theracane head MWM nod/turns and pin pec AROM R arm ROM MWM, stretching added to HEP. Introduced scapulothoracic AAROM/ open book mobility. Time spent anatomy and mechanics of performed tuning why R arm hurting with better understanding postural awareness and weakness and compensations performing, hold off for now until stronger. PT-OP-R Modalities Start: 11/30/21 20:15 Freq: Status: Active Protocol: Document 12/15/21 08:20 NBM (Rec: 12/17/21 01:59 NB [id number]-) Hot Pack/Cold Pack Treatment Cold Pack Location R shoulder Patient Position Hooklying Treatment Duration (minutes) 7 Patient Tolerance Good PT-OP-T Assessment and Plan Start: 11/30/21 20:15 Freq: Status: Active Protocol: Document 12/21/21 09:03 SP (Rec: 12/21/21 10:04 SP [id number]) Physical Therapy Assessment Goals Three Impairment Return to activity Short Term Goal (STG) Hernandez will return to all dressing without shoulder pain . 12/15/21: Belt is the only issue because of reaching around back. STG Duration 5 weeks Custodial Goal (LTG) Hernandez will play 18 holes of golf without shoulder pain. LTG Duration 10 weeks Two Impairment Strength Short Term Goal (STG) Hernandez will lift 10 pounds to chest height without an increase in pain. STG Duration 5 weeks Custodial Goal (LTG) Hernandez will be independent and consistent with a HEP of stretching and strengthening. LTG Duration 10 weeks One Impairment ROM Short Term Goal (STG) Hernandez will improve his R PROM to 90 degrees of flexion. STG Duration 5 weeks Java Web Services Developer Goal (LTG) Hernandez will improve his R AROM to 90 degrees of abduction. LTG Duration 10 weeks Assessment Summary Assessment Pt improved decrease pain R neck, distal deltoid end tx post manual and instructe self STMs with devices see self care/ added HEP. Pt limited FF AAROM but gained ABD, ER supine today, see in ther ex. Pt stated felt better leaving then when arrived. Physical Therapy Plan Frequency and Duration Frequency of Treatment 2x/Week Duration of Treatment 10 weeks Plan of Care Start Date 12/01/21 Plan of Care End Date 02/09/22 Therapeutic Interventions Therapeutic Interventions Home Exercise Program,Joint Mobilizations,Manual Therapy, Neuromuscular Re-education, Self-Care/Home Management, Therapeutic Activities, Therapeutic Exercises Modalities Cold Pack/Ice Massage,Hot Packs Next Visit Focus/Plan Next Note Type Treatment Note Next Visit Plan Recheck response manual, self instruction self STMs, stretching. Continue HEP and progression allowed with protocol. POC: Protocol per Dr. Vazquez: from 6 weeks to 12 weeks: resisted elastic cord, active range, range of motion unlimited, IR, ER, shrugs, rows.
--- NOTE | 2021-12-23 14:31 | PT.OTN ---
Current Diagnoses Primary osteoarthritis, right shoulder (12/23/21) Physical Therapy Treatment Note PT-OP-A Visit Information Start: 11/30/21 20:15 Freq: Status: Active Protocol: Document 12/23/21 09:04 [facility] (Rec: 12/23/21 09:48 [facility] [id number]) Out-Patient Physical Therapy Visit Information Visit Information Visit Type Treatment Note Visit Start Time 09:05 Visit Stop Time 09:55 Total Visit Minutes 50 Visit Number 8 Number of BALLISTICS PROFESSOR Visits 0 Precautions Precautions Pacemaker DOS: 10/21 Protocol 6-12 weeks: range of motion unlimited, AROM, elastic cord exercises. Avoid extreme stretching and weight training until after 12 weeks. PT-OP-B Current Condition Start: 11/30/21 20:15 Freq: Status: Active Protocol: Document 12/01/21 10:28 AMB (Rec: 12/01/21 10:42 AMB [id number]) Current Condition History of Current Condition Onset Date 10/21/21 Current Complaints R reverse total shoulder History of Current Condition Pt attends PT after shoulder surgery, did have some pain after quickly moving shoulder while making bed, but otherwise hasn't had much pain . Has been doing pendulums and wrist/hand exercises at home. Saw two days ago and was told he could return to golfing, X-ray was all good . 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 Treatment Goals Patient/Caregiver Goals Return golfing, being able to tune piano (needs to be able to lift arms to shoulder height), Personal Factors Other Personal Factors That May Effect R knee pain, Hx [place] (pacemaker) Therapy/Recovery . PT-OP-C Subjective Start: 11/30/21 20:15 Freq: Status: Active Protocol: Document 12/23/21 09:04 [facility] (Rec: 12/23/21 09:48 [facility] [id number]) OP-PT Subjective Patient Comments Patient Comments [place] a lot better after PT, manual techniques very helpful . PT-OP-K Range of Motion Start: 11/30/21 20:15 Freq: Status: Active Protocol: Document 12/01/21 10:43 AMB (Rec: 12/01/21 11:22 AMB [id number]) Shoulder Goniometric Range of Motion Shoulder Right Passive Shoulder ROM WFL No Testing Position Supine Flexion 74 Abduction 55 External Rotation at 45 degrees 0 Abduction Internal Rotation 45 Comments IR at 45 abd PT-OP-M Strength Start: 11/30/21 20:15 Freq: Status: Active Protocol: Document 12/01/21 10:30 AMB (Rec: 12/01/21 15:40 AMB [id number]) Shoulder Strength Shoulder Manual Muscle Testing Right Flexion 3 Fair Abduction (C5) 3 Fair External Rotation 3 Fair Internal Rotation 4- Good- PT-OP-Q Treatments Start: 11/30/21 20:15 Freq: Status: Active Protocol: Document 12/23/21 09:04 SAK (Rec: 12/23/21 09:48 SAK [id number]) Therapeutic Exercises Sidelying Exercises open book Sidelying Exercise Name trialed in PT only today Side right Equipment Used tactile AAROM and cuing - assess again before send home. Reps/Minutes x6 reps Comments hand on head better vs long arm- improve scapthorac, pinch AC jt abd Side right Resistance AROM Reps/Minutes 10 reps Comments cued slow fluid movement, decrease no pain post manual ER AROM Sidelying Exercise Name HEP reviewed Side right Resistance AROM (not quite to neutral) Equipment Used towel roll under arm Reps/Minutes 1x10 Comments cued scap retract/depressed neutral, neutral wrist Sitting Exercises self STMs Sitting Exercise Name HEP Comments patient hasn't tried yet. UT, LS stretch Sitting Exercise Name added to HEP Side right Reps/Minutes 30 x2 Comments cued tall posture, gentle overpressure if helpful or darren pully Sitting Exercise Name flex, scaption Side right Resistance AAROM Equipment Used mirror for self level shld feedback Reps/Minutes 15 Standing Exercises golf swing Standing Exercise Name diana directions Resistance L1 TB Reps/Minutes 10x Comments slow, gentle, cues to set scapulas prior to movement ER Side right Equipment Used lvl 1 Reps/Minutes 15 Comments available range IR Side right Equipment Used L1 Reps/Minutes 2x10 t band rows Side bilateral Resistance #1 t band Reps/Minutes 20 Comments cued reduced UT recruitment; verbal and tactile Manual Therapy Treatment Soft Tissue Mobilization R shoulder Body Location R biceps, deltoid, pec, UT, Rhomboid, subscap, scar Mobilization Type Myofascial Release,Rolling, Strumming,Sustained Pressure, Other Intensity/Depth Moderate Comments manual and review self instruction STMs, stretching, pin pec and AROM R arm for self STMs of pec and apply to neck head nods/turns Joint Mobilizations scapulothoracic Joint R Direction posterior, inferior Grade II Body Position Sidelying Comments manual and instructed prepare open book Self-Care/Home Management Treatment Education Patient Education Body Mechanics,Home Exercise Program,Posture PT-OP-R Modalities Start: 11/30/21 20:15 Freq: Status: Active Protocol: Document 12/15/21 08:20 NBM (Rec: 12/17/21 01:59 NB [id number]-) Hot Pack/Cold Pack Treatment Cold Pack Location R shoulder Patient Position Hooklying Treatment Duration (minutes) 7 Patient Tolerance Good PT-OP-T Assessment and Plan Start: 11/30/21 20:15 Freq: Status: Active Protocol: Document 12/23/21 09:04 SAK (Rec: 12/23/21 09:48 SAK [id number]) Physical Therapy Assessment Goals Three Impairment Return to activity Short Term Goal (STG) Hernandez will return to all dressing without shoulder pain . 12/15/21: Belt is the only issue because of reaching around back. STG Duration 5 weeks Senior Care Goal (LTG) Hernandez will play 18 holes of golf without shoulder pain. LTG Duration 10 weeks Two Impairment Strength Short Term Goal (STG) Hernandez will lift 10 pounds to chest height without an increase in pain. STG Duration 5 weeks Plasterer Stucco Goal (LTG) Hernandez will be independent and consistent with a HEP of stretching and strengthening. LTG Duration 10 weeks One Impairment ROM Short Term Goal (STG) Hernandez will improve his R PROM to 90 degrees of flexion. STG Duration 5 weeks Senior Care Goal (LTG) Hernandez will improve his R AROM to 90 degrees of abduction. LTG Duration 10 weeks Assessment Summary Assessment Decreased pain today, noting improved tolerance for ther ex . Mod cues to dec UT recruitment. Hasn't yet tried self-massage but reports he understood. AROM continues to improve. Physical Therapy Plan Frequency and Duration Frequency of Treatment 2x/Week Duration of Treatment 10 weeks Plan of Care Start Date 12/01/21 Plan of Care End Date 02/09/22 Therapeutic Interventions Therapeutic Interventions Home Exercise Program,Joint Mobilizations,Manual Therapy, Neuromuscular Re-education, Self-Care/Home Management, Therapeutic Activities, Therapeutic Exercises Modalities Cold Pack/Ice Massage,Hot Packs Next Visit Focus/Plan Next Note Type Treatment Note Next Visit Plan Continue progression of ROM and strengthening. POC: Protocol per Dr. Vazquez: from 6 weeks to 12 weeks: resisted elastic cord, active range, range of motion unlimited, IR, ER, shrugs, rows.
--- NOTE | 2021-12-29 12:04 | PT.OTN ---
Current Diagnoses Primary osteoarthritis, right shoulder (12/29/21) Physical Therapy Treatment Note PT-OP-A Visit Information Start: 11/30/21 20:15 Freq: Status: Active Protocol: Document 12/29/21 09:04 [facility] (Rec: 12/29/21 09:50 [facility] [id number]) Out-Patient Physical Therapy Visit Information Visit Information Visit Type Treatment Note Visit Start Time 09:05 Visit Stop Time 09:55 Total Visit Minutes 50 Visit Number 9 Number of MATHEMATICS EDUCATION PROFESSOR Visits 0 Precautions Precautions Pacemaker DOS: 10/21 Protocol 6-12 weeks: range of motion unlimited, AROM, elastic cord exercises. Avoid extreme stretching and weight training until after 12 weeks. PT-OP-B Current Condition Start: 11/30/21 20:15 Freq: Status: Active Protocol: Document 12/01/21 10:28 AMB (Rec: 12/01/21 10:42 AMB [id number]) Current Condition History of Current Condition Onset Date 10/21/21 Current Complaints R reverse total shoulder History of Current Condition Pt attends PT after shoulder surgery, did have some pain after quickly moving shoulder while making bed, but otherwise hasn't had much pain . Has been doing pendulums and wrist/hand exercises at home. Saw two days ago and was told he could return to golfing, X-ray was all good . 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 Treatment Goals Patient/Caregiver Goals Return golfing, being able to tune piano (needs to be able to lift arms to shoulder height), Personal Factors Other Personal Factors That May Effect R knee pain, Hx [place] (pacemaker) Therapy/Recovery . PT-OP-C Subjective Start: 11/30/21 20:15 Freq: Status: Active Protocol: Document 12/29/21 09:04 [facility] (Rec: 12/29/21 09:50 [facility] [id number]) OP-PT Subjective Patient Comments Patient Comments Doing pretty well, though admits to not doing HEP past couple of days due to a lot going on. Doing cardiac rehab M,W,Th, reports painful overhead tricep press even with 1 pound PT-OP-K Range of Motion Start: 11/30/21 20:15 Freq: Status: Active Protocol: Document 12/01/21 10:43 AMB (Rec: 12/01/21 11:22 AMB [id number]) Shoulder Goniometric Range of Motion Shoulder Right Passive Shoulder ROM WFL No Testing Position Supine Flexion 74 Abduction 55 External Rotation at 45 degrees 0 Abduction Internal Rotation 45 Comments IR at 45 abd PT-OP-M Strength Start: 11/30/21 20:15 Freq: Status: Active Protocol: Document 12/01/21 10:30 AMB (Rec: 12/01/21 15:40 AMB [id number]) Shoulder Strength Shoulder Manual Muscle Testing Right Flexion 3 Fair Abduction (C5) 3 Fair External Rotation 3 Fair Internal Rotation 4- Good- PT-OP-Q Treatments Start: 11/30/21 20:15 Freq: Status: Active Protocol: Document 12/29/21 09:04 SAK (Rec: 12/29/21 09:50 SAK [id number]) Therapeutic Exercises Supine Exercises shoulder IR,ER Supine Exercise Name AAROM Equipment Used towel roll Reps/Minutes 10x5 Comments cues for keeping shoulder from rolling forward with IR Prone Exercises I, T Prone Exercise Name I AROM, T AAROM Reps/Minutes 10x Comments verbal and tactile cues for scapular retraction and no UT recruitment Sidelying Exercises open book Sidelying Exercise Name trialed in PT only today Side right Equipment Used tactile AAROM and cuing Reps/Minutes x6 reps Comments hand on head better vs long arm- improve scapthorac, pinch AC jt abd Side right Resistance AROM Reps/Minutes 10 reps Comments cued slow fluid movement, decrease no pain post manual ER AROM Sidelying Exercise Name HEP reviewed Side right Resistance AROM (not quite to neutral) Equipment Used towel roll under arm Reps/Minutes 1x10 Comments cued scap retract/depressed neutral, neutral wrist Sitting Exercises lat pull down Sitting Exercise Name facing away Resistance L2 TB Reps/Minutes 10x2 tricep press Resistance L1 TB Reps/Minutes 10x pully Sitting Exercise Name flex, scaption Side right Resistance AAROM Equipment Used mirror for self level shld feedback Reps/Minutes 15 Standing Exercises golf swing Standing Exercise Name diana directions Equipment Used golf club, plastic balls x 6, reg balls x 4 Reps/Minutes 10x Comments slow, gentle, cues to set scapulas and core prior to movement, submax swing ER Side right Equipment Used lvl 1 Reps/Minutes 15 Comments available range IR Side right Equipment Used L1 Reps/Minutes 5x Comments painful today discontinued t band rows Side bilateral Resistance #1 t band Reps/Minutes 20 Comments cued reduced UT recruitment; verbal and tactile Self-Care/Home Management Treatment Education Patient Education Body Mechanics,Home Exercise Program,Posture Other Education updated HEP with prone T and supine IR/ER PT-OP-R Modalities Start: 11/30/21 20:15 Freq: Status: Active Protocol: Document 12/29/21 09:04 [facility]AK (Rec: 12/29/21 12:04 SAK [id number]) Hot Pack/Cold Pack Treatment Cold Pack Location R shoulder Patient Position Hooklying Treatment Duration (minutes) 10 Patient Tolerance Good PT-OP-T Assessment and Plan Start: 11/30/21 20:15 Freq: Status: Active Protocol: Document 12/29/21 09:04 [facility]AK (Rec: 12/29/21 12:04 [facility] [id number]) Physical Therapy Assessment Goals Three Impairment Return to activity Short Term Goal (STG) Hernandez will return to all dressing without shoulder pain . 12/15/21: Belt is the only issue because of reaching around back. STG Duration 5 weeks Senior Care Goal (LTG) Hernandez will play 18 holes of golf without shoulder pain. LTG Duration 10 weeks Two Impairment Strength Short Term Goal (STG) Hernandez will lift 10 pounds to chest height without an increase in pain. STG Duration 5 weeks Livestock Feeder Goal (LTG) Hernandez will be independent and consistent with a HEP of stretching and strengthening. LTG Duration 10 weeks One Impairment ROM Short Term Goal (STG) Hernandez will improve his R PROM to 90 degrees of flexion. STG Duration 5 weeks Livestock Feeder Goal (LTG) Hernandez will improve his R AROM to 90 degrees of abduction. LTG Duration 10 weeks Assessment Summary Assessment IR with TB painful today but otherwise tolerated PT well today including progression to prone ex. Patient noting improved ROM but very weak, has to modify ex in cardiac rehab; discussed modifications and encouraged not to do painful ex. Physical Therapy Plan Frequency and Duration Frequency of Treatment 2x/Week Duration of Treatment 10 weeks Plan of Care Start Date 12/01/21 Plan of Care End Date 02/09/22 Therapeutic Interventions Therapeutic Interventions Home Exercise Program,Joint Mobilizations,Manual Therapy, Neuromuscular Re-education, Self-Care/Home Management, Therapeutic Activities, Therapeutic Exercises Modalities Cold Pack/Ice Massage,Hot Packs Next Visit Focus/Plan Next Note Type Treatment Note Next Visit Plan Continue progression of ROM and strengthening. POC: Protocol per Dr. Vazquez: from 6 weeks to 12 weeks: resisted elastic cord, active range, range of motion unlimited, IR, ER, shrugs, rows.
--- NOTE | 2022-01-01 10:53 | PT.OTN ---
Current Diagnoses Primary osteoarthritis, right shoulder (02/18/22) Physical Therapy Treatment Note PT-OP-A Visit Information Start: 11/30/21 20:15 Freq: Status: Active Protocol: Document 01/01/22 10:01 NBM (Rec: 01/01/22 10:50 [facility] [id number]) Out-Patient Physical Therapy Visit Information Visit Information Visit Type Treatment Note Visit Start Time 10:04 Visit Stop Time 10:42 Total Visit Minutes 38 Visit Number 10 Number of ASSISTANT PROFESSOR OF HISTORY Visits 1 Precautions Precautions Pacemaker DOS: 10/21 Protocol 6-12 weeks: range of motion unlimited, AROM, elastic cord exercises. Avoid extreme stretching and weight training until after 12 weeks. PT-OP-B Current Condition Start: 11/30/21 20:15 Freq: Status: Active Protocol: Document 12/01/21 10:28 AMB (Rec: 12/01/21 10:42 AMB [id number]) Current Condition History of Current Condition Onset Date 10/21/21 Current Complaints R reverse total shoulder History of Current Condition Pt attends PT after shoulder surgery, did have some pain after quickly moving shoulder while making bed, but otherwise hasn't had much pain . Has been doing pendulums and wrist/hand exercises at home. Saw two days ago and was told he could return to golfing, X-ray was all good . 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 Treatment Goals Patient/Caregiver Goals Return golfing, being able to tune piano (needs to be able to lift arms to shoulder height), Personal Factors Other Personal Factors That May Effect R knee pain, Hx CT (pacemaker) Therapy/Recovery . PT-OP-C Subjective Start: 11/30/21 20:15 Freq: Status: Active Protocol: Document 01/01/22 10:01 NBM (Rec: 01/01/22 10:50 [facility] [id number]) OP-PT Subjective Patient Comments Patient Comments Pt reports he has been a little more sore recently which may be because his cardio workouts have been a bit harder. Pt hit balls on golf course yesterday and day before and it felt really good. He knows he can't do a full swing yet but it's coming. PT-OP-K Range of Motion Start: 11/30/21 20:15 Freq: Status: Active Protocol: Document 12/01/21 10:43 AMB (Rec: 12/01/21 11:22 AMB [id number]) Shoulder Goniometric Range of Motion Shoulder Right Passive Shoulder ROM WFL No Testing Position Supine Flexion 74 Abduction 55 External Rotation at 45 degrees 0 Abduction Internal Rotation 45 Comments IR at 45 abd PT-OP-M Strength Start: 11/30/21 20:15 Freq: Status: Active Protocol: Document 12/01/21 10:30 AMB (Rec: 12/01/21 15:40 AMB [id number]) Shoulder Strength Shoulder Manual Muscle Testing Right Flexion 3 Fair Abduction (C5) 3 Fair External Rotation 3 Fair Internal Rotation 4- Good- PT-OP-Q Treatments Start: 11/30/21 20:15 Freq: Status: Active Protocol: Document 01/01/22 10:01 NBM (Rec: 01/01/22 10:50 NBM [id number]) Therapeutic Exercises Supine Exercises shoulder IR,ER Supine Exercise Name AAROM- HEP review Equipment Used towel roll Reps/Minutes 10x5 Comments cues for keeping shoulder from rolling forward with IR AROM serratus press Supine Exercise Name chest press to punch Equipment Used wand - AROM Reps/Minutes 10 reps Comments cue for shoulder blades off mat Prone Exercises I, T Prone Exercise Name T AAROM-HEP review Reps/Minutes 10x Comments verbal and tactile cues for scapular retraction and no UT recruitment Sidelying Exercises open book Side bilateral Equipment Used tactile AAROM and cuing Reps/Minutes x6 reps Comments Pt tolerated long arm today and said can't do bent - no pinching reported abd Side right Resistance AROM Reps/Minutes 10 reps Comments cued slow fluid movement ER AROM Side right Resistance AROM Equipment Used towel roll under arm Reps/Minutes 1x10 Comments cued scap retract/depressed neutral, neutral wrist Sitting Exercises pully Sitting Exercise Name flex, scaption Side right Resistance AAROM Reps/Minutes 15 ea Standing Exercises golf swing Reps/Minutes 10x Comments slow, gentle, cues to set scapulas and core prior to movement, submax swing ER Side right Equipment Used lvl 1 Reps/Minutes 15 Comments available range IR Side right Equipment Used L1 Reps/Minutes 5x Comments painful today discontinued t band rows Side bilateral Resistance #1 t band Reps/Minutes 20 Comments cued reduced UT recruitment; verbal and tactile PT-OP-R Modalities Start: 11/30/21 20:15 Freq: Status: Active Protocol: Document 01/01/22 10:01 [facility] (Rec: 01/01/22 10:50 [facility] [id number]) Hot Pack/Cold Pack Treatment Cold Pack Location R shoulder Patient Position Hooklying Treatment Duration (minutes) 10 Patient Tolerance Good PT-OP-T Assessment and Plan Start: 11/30/21 20:15 Freq: Status: Active Protocol: Document 01/01/22 10:01 [facility] (Rec: 02/22/22 00:27 [facility] [id number] Physical Therapy Assessment Goals Three Impairment Return to activity Short Term Goal (STG) Hernandez will return to all dressing without shoulder pain . 12/15/21: Belt is the only issue because of reaching around back. STG Duration 5 weeks Duct Maker Goal (LTG) Hernandez will play 18 holes of golf without shoulder pain. LTG Duration 10 weeks Two Impairment Strength Short Term Goal (STG) Hernadnez will lift 10 pounds to chest height without an increase in pain. STG Duration 5 weeks Prison Goal (LTG) Hernandez will be independent and consistent with a HEP of stretching and strengthening. LTG Duration 10 weeks One Impairment ROM Short Term Goal (STG) Hernandez will improve his R PROM to 90 degrees of flexion. STG Duration 5 weeks Prison Goal (LTG) Hernandez will improve his R AROM to 90 degrees of abduction. LTG Duration 10 weeks Assessment Summary Assessment Treatment focus on HEP review. Pt requires cues to stay in pain-free range, and for scapular setting. Pt's pain with ex improves when cued for scapular setting. Pt will benefit from continued skilled therapeutic intervention. Physical Therapy Plan Frequency and Duration Frequency of Treatment 2x/Week Duration of treatment (weeks) 6 Plan of Care Start Date 12/01/21 Plan of Care End Date 03/23/22 Therapeutic Interventions Therapeutic Interventions Home Exercise Program,Joint Mobilizations,Manual Therapy, Neuromuscular Re-education, Self-Care/Home Management, Therapeutic Activities, Therapeutic Exercises Modalities Cold Pack/Ice Massage,Hot Packs Next Visit Focus/Plan Next Note Type Treatment Note Next Visit Plan Continue progression of ROM and strengthening. POC: Protocol per Dr. Vazquez: from 6 weeks to 12 weeks: resisted elastic cord, active range, range of motion unlimited, IR, ER, shrugs, rows.
--- NOTE | 2022-01-05 12:06 | PT.OTN ---
Current Diagnoses Primary osteoarthritis, right shoulder (01/05/22) Physical Therapy Treatment Note PT-OP-A Visit Information Start: 11/30/21 20:15 Freq: Status: Active Protocol: Document 01/05/22 09:01 [facility] (Rec: 01/05/22 09:49 [facility] [id number]) Out-Patient Physical Therapy Visit Information Visit Information Visit Type Progress Note Visit Start Time 09:00 Visit Stop Time 09:48 Total Visit Minutes 48 Visit Number 11 Number of COMMISSIONED DEFENCE FORCE OFFICER Visits 0 Precautions Precautions Pacemaker DOS: 10/21 Protocol 6-12 weeks: range of motion unlimited, AROM, elastic cord exercises. Avoid extreme stretching and weight training until after 12 weeks. PT-OP-B Current Condition Start: 11/30/21 20:15 Freq: Status: Active Protocol: Document 12/01/21 10:28 AMB (Rec: 12/01/21 10:42 AMB [id number]) Current Condition History of Current Condition Onset Date 10/21/21 Current Complaints R reverse total shoulder History of Current Condition Pt attends PT after shoulder surgery, did have some pain after quickly moving shoulder while making bed, but otherwise hasn't had much pain . Has been doing pendulums and wrist/hand exercises at home. Saw two days ago and was told he could return to golfing, X-ray was all good . 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 Treatment Goals Patient/Caregiver Goals Return golfing, being able to tune piano (needs to be able to lift arms to shoulder height), Personal Factors Other Personal Factors That May Effect R knee pain, Hx [place] (pacemaker) Therapy/Recovery . PT-OP-C Subjective Start: 11/30/21 20:15 Freq: Status: Active Protocol: Document 01/05/22 09:01 [facility] (Rec: 01/05/22 09:49 [facility] [id number]) OP-PT Subjective Patient Comments Patient Comments Continues with a little more soreness in right shoulder. Hasn't done any more golf swings at home yet. Frustrated by lack of strength and difficulty reaching behind his back. Using 1# weights in cardiac rehab reaching ovehead and I quickly lose strength, agreed to do without weight. PT-OP-K Range of Motion Start: 11/30/21 20:15 Freq: Status: Active Protocol: Document 12/01/21 10:43 AMB (Rec: 12/01/21 11:22 AMB [id number]) Shoulder Goniometric Range of Motion Shoulder Right Passive Shoulder ROM WFL No Testing Position Supine Flexion 74 Abduction 55 External Rotation at 45 degrees 0 Abduction Internal Rotation 45 Comments IR at 45 abd PT-OP-M Strength Start: 11/30/21 20:15 Freq: Status: Active Protocol: Document 12/01/21 10:30 AMB (Rec: 12/01/21 15:40 AMB [id number]) Shoulder Strength Shoulder Manual Muscle Testing Right Flexion 3 Fair Abduction (C5) 3 Fair External Rotation 3 Fair Internal Rotation 4- Good- PT-OP-Q Treatments Start: 11/30/21 20:15 Freq: Status: Active Protocol: Document 01/05/22 09:01 SAK (Rec: 01/05/22 09:49 SAK [id number]) Cardio Equipment Upper Body Ergometer (UBE) Duration (Minutes) 2 RPM 120 Seat Position 13 Height 2.5 Other discontinued due to discomfort Therapeutic Exercises Supine Exercises shoulder IR,ER Supine Exercise Name AAROM- HEP review Equipment Used towel roll Reps/Minutes 10x5 Comments cues for keeping shoulder from rolling forward with IR AROM serratus press Supine Exercise Name chest press to punch Equipment Used wand - AROM Reps/Minutes 10 reps Comments cue for shoulder blades off mat Prone Exercises I, T Prone Exercise Name T AAROM-HEP review Reps/Minutes 10x Comments verbal and tactile cues for scapular retraction and no UT recruitment Sidelying Exercises open book Side right Equipment Used tactile AAROM and cuing Reps/Minutes x5 reps abd Side right Resistance AROM Reps/Minutes 10 reps Comments cued slow fluid movement, upward rotation of scapula ER AROM Side right Resistance AROM Equipment Used towel roll under arm Reps/Minutes 1x10 Comments cued scap retract/depressed neutral, neutral wrist Sitting Exercises pully Sitting Exercise Name flex, scaption Side right Resistance AAROM Reps/Minutes 15 ea Comments cues to allow upward rotation of scapula Standing Exercises should add/IR Reps/Minutes 5x5 Comments towel, gentle shoulder extension Reps/Minutes 10x Comments wand IR Side right Equipment Used L1 Reps/Minutes 5x t band rows Side bilateral Resistance #1 t band Reps/Minutes 20 Comments cued reduced UT recruitment; verbal and tactile Manual Therapy Treatment Soft Tissue Mobilization scar massage Mobilization Type Instrument Assisted Body Position Supine Comments small suction tool Self-Care/Home Management Treatment Education Patient Education Body Mechanics,Home Exercise Program,Posture Other Education updated HEP with prone T and supine IR/ER PT-OP-R Modalities Start: 11/30/21 20:15 Freq: Status: Active Protocol: Document 01/05/22 09:01 [facility] (Rec: 01/05/22 09:49 [facility] [id number]) Hot Pack/Cold Pack Treatment Cold Pack Location R shoulder Patient Position Hooklying Treatment Duration (minutes) 10 Patient Tolerance Good PT-OP-T Assessment and Plan Start: 11/30/21 20:15 Freq: Status: Active Protocol: Document 01/05/22 09:01 [facility] (Rec: 01/05/22 09:49 [facility] [id number]) Physical Therapy Assessment Goals Three Impairment Return to activity Short Term Goal (STG) Hernandez will return to all dressing without shoulder pain . 12/15/21: Belt is the only issue because of reaching around back. STG Duration 5 weeks Boiling House Oiler Goal (LTG) Hernandez will play 18 holes of golf without shoulder pain. LTG Duration 10 weeks Two Impairment Strength Short Term Goal (STG) Hernandez will lift 10 pounds to chest height without an increase in pain. STG Duration 5 weeks Boiling House Oiler Goal (LTG) Hernandez will be independent and consistent with a HEP of stretching and strengthening. LTG Duration 10 weeks One Impairment ROM Short Term Goal (STG) Hernandez will improve his R PROM to 90 degrees of flexion. STG Duration 5 weeks Boiling House Oiler Goal (LTG) Hernandez will improve his R AROM to 90 degrees of abduction. LTG Duration 10 weeks Assessment Summary Assessment mod verbal and tactile cues for correct scapular stabilization, plus identified difficulty with elevation due to patient trying to keep scapula down while elevating; once cued for upward rotation improved UE elevation noted. Instructed to not overdo in cardiac rehab, consider no weight with overhead ex. Patient demonstrated good understanding Physical Therapy Plan Frequency and Duration Frequency of Treatment 2x/Week Duration of treatment (weeks) 6 Plan of Care Start Date 12/01/21 Plan of Care End Date 03/23/22 Next Visit Focus/Plan Next Note Type Treatment Note Next Visit Plan Continue progression of ROM and strengthenin per [facility]SA protocol.
--- NOTE | 2022-01-07 16:46 | PT.OTN ---
Current Diagnoses Primary osteoarthritis, right shoulder (01/07/22) Physical Therapy Treatment Note PT-OP-A Visit Information Start: 11/30/21 20:15 Freq: Status: Active Protocol: Document 01/07/22 08:57 [facility] (Rec: 01/07/22 09:47 [facility] [id number]) Out-Patient Physical Therapy Visit Information Visit Information Visit Type Progress Note Visit Start Time 09:00 Visit Stop Time 09:48 Total Visit Minutes 48 Visit Number 12 Number of AIR BRUSH DECORATOR Visits 0 Precautions Precautions Pacemaker DOS: 10/21 Protocol 6-12 weeks: range of motion unlimited, AROM, elastic cord exercises. Avoid extreme stretching and weight training until after 12 weeks. PT-OP-B Current Condition Start: 11/30/21 20:15 Freq: Status: Active Protocol: Document 12/01/21 10:28 AMB (Rec: 12/01/21 10:42 AMB [id number]) Current Condition History of Current Condition Onset Date 10/21/21 Current Complaints R reverse total shoulder History of Current Condition Pt attends PT after shoulder surgery, did have some pain after quickly moving shoulder while making bed, but otherwise hasn't had much pain . Has been doing pendulums and wrist/hand exercises at home. Saw two days ago and was told he could return to golfing, X-ray was all good . 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 Treatment Goals Patient/Caregiver Goals Return golfing, being able to tune piano (needs to be able to lift arms to shoulder height), Personal Factors Other Personal Factors That May Effect R knee pain, Hx [place] (pacemaker) Therapy/Recovery . PT-OP-C Subjective Start: 11/30/21 20:15 Freq: Status: Active Protocol: Document 01/07/22 08:57 SAK (Rec: 01/07/22 09:47 [facility] [id number]) OP-PT Subjective Patient Comments Patient Comments Shoulder feeling better, likely due to improved understanding of how scapula functions, still very weak. No weights in cardiac rehab yesterday PT-OP-K Range of Motion Start: 11/30/21 20:15 Freq: Status: Active Protocol: Document 12/01/21 10:43 AMB (Rec: 12/01/21 11:22 AMB [id number]) Shoulder Goniometric Range of Motion Shoulder Right Passive Shoulder ROM WFL No Testing Position Supine Flexion 74 Abduction 55 External Rotation at 45 degrees 0 Abduction Internal Rotation 45 Comments IR at 45 abd PT-OP-M Strength Start: 11/30/21 20:15 Freq: Status: Active Protocol: Document 12/01/21 10:30 AMB (Rec: 12/01/21 15:40 AMB [id number]) Shoulder Strength Shoulder Manual Muscle Testing Right Flexion 3 Fair Abduction (C5) 3 Fair External Rotation 3 Fair Internal Rotation 4- Good- PT-OP-Q Treatments Start: 11/30/21 20:15 Freq: Status: Active Protocol: Document 01/07/22 08:57 SAK (Rec: 01/07/22 09:47 SAK [id number]) Cardio Equipment Recumbent Elliptical ([email or web address]) Duration (Minutes) 5 Resistance 2 Seat Position 10 Therapeutic Exercises Supine Exercises shoulder IR,ER Supine Exercise Name AAROM, also gentle contract/ relax Equipment Used towel roll Reps/Minutes 10x5 Comments cues for keeping shoulder from rolling forward with IR AROM serratus press Supine Exercise Name chest press to punch Equipment Used wand - AROM Reps/Minutes 10 reps Comments cue for shoulder blades off mat Prone Exercises Y Reps/Minutes 10x Comments verbal and tactile cues for scapular retraction and no UT recruitment I, T Reps/Minutes 10x Comments verbal and tactile cues for scapular retraction and no UT recruitment Sidelying Exercises ER AROM Side right Resistance AROM Equipment Used towel roll under arm Reps/Minutes 1x10 Comments cued scap retract/depressed neutral, neutral wrist Sitting Exercises pully Sitting Exercise Name flex, scaption Side right Resistance AAROM Reps/Minutes 15 ea Comments cues to allow upward rotation of scapula Standing Exercises throw Standing Exercise Name AROM Reps/Minutes 10x Comments slow, pain-free ROM ER Side right Equipment Used lvl 1 Reps/Minutes 15 Comments available range, also isometric sidestep IR Standing Exercise Name done as isometric sidestep due to pain with movement Equipment Used L1 Reps/Minutes 10x Comments sidestep t band rows Side bilateral Resistance #1 t band Reps/Minutes 20 Comments cued reduced UT recruitment; verbal and tactile Self-Care/Home Management Treatment Education Patient Education Body Mechanics,Home Exercise Program,Posture PT-OP-R Modalities Start: 11/30/21 20:15 Freq: Status: Active Protocol: Document 01/07/22 08:57 SAK (Rec: 01/07/22 09:47 SAK [id number]) Hot Pack/Cold Pack Treatment Cold Pack Location R shoulder Patient Position Hooklying Treatment Duration (minutes) 10 Patient Tolerance Good PT-OP-T Assessment and Plan Start: 11/30/21 20:15 Freq: Status: Active Protocol: Document 01/07/22 08:57 [facility] (Rec: 01/07/22 09:47 [facility] [id number]) Physical Therapy Assessment Goals Three Impairment Return to activity Short Term Goal (STG) Hernandez will return to all dressing without shoulder pain . 12/15/21: Belt is the only issue because of reaching around back. STG Duration 5 weeks Accounting File Clerk Goal (LTG) Hernandez will play 18 holes of golf without shoulder pain. LTG Duration 10 weeks Two Impairment Strength Short Term Goal (STG) Hernandez will lift 10 pounds to chest height without an increase in pain. STG Duration 5 weeks Nursing Home Goal (LTG) Hernandez will be independent and consistent with a HEP of stretching and strengthening. LTG Duration 10 weeks One Impairment ROM Short Term Goal (STG) Hernandez will improve his R PROM to 90 degrees of flexion. STG Duration 5 weeks Nursing Home Goal (LTG) Hernandez will improve his R AROM to 90 degrees of abduction. LTG Duration 10 weeks Assessment Summary Assessment Improved understanding of scapular stabilization and mobility. Improved movement with sidelying ER. Still some pain with resisted shoulder IR; none when modified to stationary hold of TB with lateral sidestep. No pain with AROM slow throw motion but with limited motion. Need to progress multiplane ROM and strengthening. Physical Therapy Plan Frequency and Duration Frequency of Treatment 2x/Week Duration of treatment (weeks) 6 Plan of Care Start Date 12/01/21 Plan of Care End Date 03/23/22 Therapeutic Interventions Therapeutic Interventions Home Exercise Program,Joint Mobilizations,Manual Therapy, Neuromuscular Re-education, Self-Care/Home Management, Therapeutic Activities, Therapeutic Exercises Modalities Cold Pack/Ice Massage,Hot Packs Next Visit Focus/Plan Next Note Type Treatment Note Next Visit Plan Add weights to serratus punch, consider doing on pool noodle . Supine PNF adding resistance if TB if tolerated. Continue to progress per post-op protocol. Functional multiplane movements.
--- NOTE | 2022-01-11 15:41 | PT-OP ANOTE ---
Called pt regarding missed 315pm PT appointment today - Pt states they were unaware of any further appointments being scheduled. Advised pt of next three PT appointments and pt plans to obtain printed schedule from front end drupal developer at next appointment Saturday 01/13. help desk assistant notified.
--- NOTE | 2022-01-13 10:40 | PT.OTN ---
Current Diagnoses Primary osteoarthritis, right shoulder (01/13/22) Physical Therapy Treatment Note PT-OP-A Visit Information Start: 11/30/21 20:15 Freq: Status: Active Protocol: Document 01/13/22 09:00 [facility] (Rec: 01/13/22 09:52 [facility] [id number]) Out-Patient Physical Therapy Visit Information Visit Information Visit Type Progress Note Visit Start Time 09:00 Visit Stop Time 09:56 Total Visit Minutes 56 Visit Number 13 Number of LOGISTICS OFFICER Visits 0 Precautions Precautions Pacemaker DOS: 10/21 Protocol 6-12 weeks: range of motion unlimited, AROM, elastic cord exercises. Avoid extreme stretching and weight training until after 12 weeks. PT-OP-B Current Condition Start: 11/30/21 20:15 Freq: Status: Active Protocol: Document 12/01/21 10:28 AMB (Rec: 12/01/21 10:42 AMB [id number]) Current Condition History of Current Condition Onset Date 10/21/21 Current Complaints R reverse total shoulder History of Current Condition Pt attends PT after shoulder surgery, did have some pain after quickly moving shoulder while making bed, but otherwise hasn't had much pain . Has been doing pendulums and wrist/hand exercises at home. Saw two days ago and was told he could return to golfing, X-ray was all good . 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 Treatment Goals Patient/Caregiver Goals Return golfing, being able to tune piano (needs to be able to lift arms to shoulder height), Personal Factors Other Personal Factors That May Effect R knee pain, Hx [place] (pacemaker) Therapy/Recovery . PT-OP-C Subjective Start: 11/30/21 20:15 Freq: Status: Active Protocol: Document 01/13/22 09:00 [facility] (Rec: 01/13/22 09:52 [facility] [id number]) OP-PT Subjective Patient Comments Patient Comments Concerned about his heart, having V-tach according to his defibrillator, may have to go on new med, be hospitalized while gets used to it. Awaiting further word from physician. Shoulder not too bad, feels tight like there's a clenched fist inside the joint, doing more and more, might attempt driving range this week. Lifting against gravity better. PT-OP-K Range of Motion Start: 08/22/22 20:15 Freq: Status: Active Protocol: Document 12/01/21 10:43 AMB (Rec: 12/01/21 11:22 AMB [id number]) Shoulder Goniometric Range of Motion Shoulder Right Passive Shoulder ROM WFL No Testing Position Supine Flexion 74 Abduction 55 External Rotation at 45 degrees 0 Abduction Internal Rotation 45 Comments IR at 45 abd PT-OP-M Strength Start: 11/30/21 20:15 Freq: Status: Active Protocol: Document 12/01/21 10:30 AMB (Rec: 12/01/21 15:40 AMB [id number]) Shoulder Strength Shoulder Manual Muscle Testing Right Flexion 3 Fair Abduction (C5) 3 Fair External Rotation 3 Fair Internal Rotation 4- Good- PT-OP-Q Treatments Start: 11/30/21 20:15 Freq: Status: Active Protocol: Document 01/13/22 09:00 SAK (Rec: 01/13/22 09:52 SAK [id number]) Cardio Equipment Recumbent Elliptical ([employer]) Duration (Minutes) 6 Resistance 2-3 Seat Position 10 Gym Equipment Cable Column (Body Solid) scapular shrug Resistance 10 Reps/Time next session lat pull Resistance 20x Therapeutic Exercises Supine Exercises hor ab Resistance L1 TB Reps/Minutes 10x D1 flex Resistance L1 TB Reps/Minutes 10x Comments followed by AROM same motion shoulder IR,ER Supine Exercise Name AAROM, also gentle contract/ relax Equipment Used towel roll Reps/Minutes 10x5 Comments cues for keeping shoulder from rolling forward with IR Prone Exercises Y Reps/Minutes 10x Comments verbal and tactile cues for scapular retraction and no UT recruitment I, T Reps/Minutes 10x Comments verbal and tactile cues for scapular retraction and no UT recruitment Sidelying Exercises ER AROM Side right Resistance AROM Equipment Used towel roll under arm Reps/Minutes 1x10 Comments cued scap retract/depressed neutral, neutral wrist Standing Exercises throw Standing Exercise Name AROM Reps/Minutes 10x Comments slow, pain-free ROM should add/IR Reps/Minutes 5x5 Comments towel, gentle IR Standing Exercise Name done as isometric sidestep due to pain with movement Equipment Used L1 Reps/Minutes 10x Comments sidestep t band rows Side bilateral Resistance #1 t band Reps/Minutes 20 Comments cued reduced UT recruitment; verbal and tactile Manual Therapy Treatment Soft Tissue Mobilization R shoulder Body Location R biceps, deltoid, pec, UT, Rhomboid, subscap, scar Mobilization Type Myofascial Release,Rolling, Strumming,Sustained Pressure, Other Intensity/Depth Moderate Comments manual and review self instruction STMs, stretching, pin pec and AROM R arm for self STMs of pec and apply to neck head nods/turns Self-Care/Home Management Treatment Education Patient Education Body Mechanics,Home Exercise Program,Posture PT-OP-R Modalities Start: 11/30/21 20:15 Freq: Status: Active Protocol: Document 01/13/22 09:00 [facility] (Rec: 01/13/22 09:53 [facility] [id number]) Hot Pack/Cold Pack Treatment Cold Pack Location R shoulder Patient Position Hooklying Treatment Duration (minutes) 10 Patient Tolerance Good PT-OP-T Assessment and Plan Start: 11/30/21 20:15 Freq: Status: Active Protocol: Document 01/13/22 09:00 [facility] (Rec: 01/13/22 09:52 [facility] [id number]) Physical Therapy Assessment Goals Three Impairment Return to activity Short Term Goal (STG) Hernandez will return to all dressing without shoulder pain . 12/15/21: Belt is the only issue because of reaching around back. STG Duration 5 weeks Survey Chief Goal (LTG) Hernandez will play 18 holes of golf without shoulder pain. LTG Duration 10 weeks Two Impairment Strength Short Term Goal (STG) Hernandez will lift 10 pounds to chest height without an increase in pain. STG Duration 5 weeks Survey Chief Goal (LTG) Hernandez will be independent and consistent with a HEP of stretching and strengthening. LTG Duration 10 weeks One Impairment ROM Short Term Goal (STG) Hernandez will improve his R PROM to 90 degrees of flexion. STG Duration 5 weeks Long-Term Goal (LTG) Hernandez will improve his R AROM to 90 degrees of abduction. LTG Duration 10 weeks Progress Towards Goals Progress Towards Goals Progressing Toward Goals Assessment Summary Assessment FF 151, scaption 164 with pulleys PROM. Continues to improve ROM, functional use of his right UE. Physical Therapy Plan Frequency and Duration Frequency of Treatment 2x/Week Duration of treatment (weeks) 6 Plan of Care Start Date 12/01/21 Plan of Care End Date 03/23/22 Therapeutic Interventions Therapeutic Interventions Home Exercise Program,Joint Mobilizations,Manual Therapy, Neuromuscular Re-education, Self-Care/Home Management, Therapeutic Activities, Therapeutic Exercises Modalities Cold Pack/Ice Massage,Hot Packs Next Visit Focus/Plan Next Note Type Treatment Note Next Visit Plan Add weights to serratus punch, consider doing on pool noodle . Continue to progress per post-op protocol. Functional multiplane movements.
--- NOTE | 2022-01-19 13:45 | PT.OTN ---
Current Diagnoses Primary osteoarthritis, right shoulder (01/19/22) Physical Therapy Treatment Note PT-OP-A Visit Information Start: 11/30/21 20:15 Freq: Status: Active Protocol: Document 01/19/22 13:36 [facility] (Rec: 01/20/22 10:15 [facility] [id number]) Out-Patient Physical Therapy Visit Information Visit Information Visit Type Treatment Note Visit Start Time 13:45 Visit Stop Time 14:41 Total Visit Minutes 56 Visit Number 14 Number of NURSE SUBSTANCE ABUSE Visits 0 Precautions Precautions Pacemaker DOS: 10/21 Protocol 6-12 weeks: range of motion unlimited, AROM, elastic cord exercises. Avoid extreme stretching and weight training until after 12 weeks. PT-OP-B Current Condition Start: 11/30/21 20:15 Freq: Status: Active Protocol: Document 12/01/21 10:28 AMB (Rec: 12/01/21 10:42 AMB [id number]) Current Condition History of Current Condition Onset Date 10/21/21 Current Complaints R reverse total shoulder History of Current Condition Pt attends PT after shoulder surgery, did have some pain after quickly moving shoulder while making bed, but otherwise hasn't had much pain . Has been doing pendulums and wrist/hand exercises at home. Saw two days ago and was told he could return to golfing, X-ray was all good . 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 Treatment Goals Patient/Caregiver Goals Return golfing, being able to tune piano (needs to be able to lift arms to shoulder height), Personal Factors Other Personal Factors That May Effect R knee pain, Hx [place] (pacemaker) Therapy/Recovery . PT-OP-C Subjective Start: 11/30/21 20:15 Freq: Status: Active Protocol: Document 01/19/22 13:36 [facility] (Rec: 01/19/22 14:33 [facility] [id number]) OP-PT Subjective Patient Comments Patient Comments Painful with attempt at hitting golf ball, pain back of shoulder; realize it might not be until next year that I 'm able to golf. Pain experienced on follow-through of swing On new medication for V-tach, causing him to be a little dizzy. PT-OP-K Range of Motion Start: 11/30/21 20:15 Freq: Status: Active Protocol: Document 12/01/21 10:43 AMB (Rec: 12/01/21 11:22 AMB [id number]) Shoulder Goniometric Range of Motion Shoulder Right Passive Shoulder ROM WFL No Testing Position Supine Flexion 74 Abduction 55 External Rotation at 45 degrees 0 Abduction Internal Rotation 45 Comments IR at 45 abd PT-OP-M Strength Start: 11/30/21 20:15 Freq: Status: Active Protocol: Document 12/01/21 10:30 AMB (Rec: 12/01/21 15:40 AMB [id number]) Shoulder Strength Shoulder Manual Muscle Testing Right Flexion 3 Fair Abduction (C5) 3 Fair External Rotation 3 Fair Internal Rotation 4- Good- PT-OP-Q Treatments Start: 11/30/21 20:15 Freq: Status: Active Protocol: Document 01/19/22 13:36 SAK (Rec: 01/19/22 14:33 SAK [id number]) Cardio Equipment Upper Body Ergometer (UBE) Duration (Minutes) 6 RPM 120 Seat Position 12 Height 2 Other fwd/bck Therapeutic Exercises Supine Exercises shoulder IR,ER Supine Exercise Name AAROM, also gentle contract/ relax for both motions followed by AROM new ROM Equipment Used towel roll Reps/Minutes 10x5 Comments cues for keeping shoulder from rolling forward with IR Prone Exercises Y Reps/Minutes 10x Comments verbal and tactile cues for scapular retraction and no UT recruitment I, T Reps/Minutes 10x Comments verbal and tactile cues for scapular retraction and no UT recruitment Sidelying Exercises ER AROM Side right Resistance AROM Equipment Used towel roll under arm Reps/Minutes 1x10 Comments cued scap retract/depressed neutral, neutral wrist Sitting Exercises pully Sitting Exercise Name flex, scaption Side right Resistance AAROM Reps/Minutes 15 ea Comments cues to allow upward rotation of scapula Standing Exercises posterior capsule stretch Comments painful ER Side right Equipment Used lvl 1 Reps/Minutes 15 t band rows Side bilateral Resistance #1 t band Reps/Minutes 20 Comments cued reduced UT recruitment; verbal and tactile Manual Therapy Treatment Soft Tissue Mobilization R shoulder Body Location R biceps, deltoid, pec, UT, Rhomboid, subscap, scar Mobilization Type Myofascial Release,Rolling, Strumming,Sustained Pressure, Other Intensity/Depth Moderate Comments manual and review self instruction STMs, stretching, pin pec and AROM R arm for self STMs of pec and apply to neck head nods/turns Self-Care/Home Management Treatment Education Patient Education Body Mechanics,Home Exercise Program,Posture Other Education caution not to push activities (golf) too quickly, listen to body, back off PT-OP-R Modalities Start: 11/30/21 20:15 Freq: Status: Active Protocol: Document 01/19/22 13:36 [facility] (Rec: 01/20/22 10:15 [facility] [id number]) Hot Pack/Cold Pack Treatment Cold Pack Location R shoulder Patient Position Hooklying Treatment Duration (minutes) 10 Patient Tolerance Good PT-OP-T Assessment and Plan Start: 11/30/21 20:15 Freq: Status: Active Protocol: Document 01/19/22 13:36 [facility] (Rec: 01/19/22 14:33 [facility] [id number]) Physical Therapy Assessment Goals Three Impairment Return to activity Short Term Goal (STG) Hernandez will return to all dressing without shoulder pain . 12/15/21: Belt is the only issue because of reaching around back. STG Duration 5 weeks Half-Way Goal (LTG) Hernandez will play 18 holes of golf without shoulder pain. LTG Duration 10 weeks Two Impairment Strength Short Term Goal (STG) Hernandez will lift 10 pounds to chest height without an increase in pain. STG Duration 5 weeks Half-Way Goal (LTG) Hernandez will be independent and consistent with a HEP of stretching and strengthening. LTG Duration 10 weeks One Impairment ROM Short Term Goal (STG) Hernandez will improve his R PROM to 90 degrees of flexion. STG Duration 5 weeks Cylinder Batcher Goal (LTG) Hernandez will improve his R AROM to 90 degrees of abduction. LTG Duration 10 weeks Assessment Summary Assessment FF 153, scaption 165 with pulleys PROM. Tight posterior capsule, pain with attempt at stretch. Some pain after first trial UBE; not verbalized until done. improved strength in prone T and Y. Physical Therapy Plan Frequency and Duration Frequency of Treatment 2x/Week Duration of treatment (weeks) 6 Plan of Care Start Date 12/01/21 Plan of Care End Date 03/23/22 Therapeutic Interventions Therapeutic Interventions Home Exercise Program,Joint Mobilizations,Manual Therapy, Neuromuscular Re-education, Self-Care/Home Management, Therapeutic Activities, Therapeutic Exercises Modalities Cold Pack/Ice Massage,Hot Packs Next Visit Focus/Plan Next Note Type Treatment Note Next Visit Plan Add weights to serratus punch, consider doing on pool noodle . Continue to progress per post-op protocol. Functional multiplane movements. Consider IFES if continued posterior shoulder pain.
--- NOTE | 2022-01-22 14:45 | PT.OTN ---
Current Diagnoses Primary osteoarthritis, right shoulder (01/22/22) Physical Therapy Treatment Note PT-OP-A Visit Information Start: 11/30/21 20:15 Freq: Status: Active Protocol: Document 01/22/22 13:44 N[facility] (Rec: 01/22/22 14:59 [facility] [id number]) Out-Patient Physical Therapy Visit Information Visit Information Visit Type Treatment Note Visit Start Time 13:45 Visit Stop Time 14:30 Total Visit Minutes 45 Visit Number 15 Number of SENIOR REGULATORY AFFAIRS SPECIALIST Visits 1 Precautions Precautions Pacemaker DOS: 10/21 Protocol 6-12 weeks: range of motion unlimited, AROM, elastic cord exercises. Avoid extreme stretching and weight training until after 12 weeks. PT-OP-B Current Condition Start: 11/30/21 20:15 Freq: Status: Active Protocol: Document 12/01/21 10:28 AMB (Rec: 12/01/21 10:42 AMB [id number]) Current Condition History of Current Condition Onset Date 10/21/21 Current Complaints R reverse total shoulder History of Current Condition Pt attends PT after shoulder surgery, did have some pain after quickly moving shoulder while making bed, but otherwise hasn't had much pain . Has been doing pendulums and wrist/hand exercises at home. Saw two days ago and was told he could return to golfing, X-ray was all good . 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 Treatment Goals Patient/Caregiver Goals Return golfing, being able to tune piano (needs to be able to lift arms to shoulder height), Personal Factors Other Personal Factors That May Effect R knee pain, Hx [place] (pacemaker) Therapy/Recovery . PT-OP-C Subjective Start: 11/30/21 20:15 Freq: Status: Active Protocol: Document 01/22/22 13:44 NBM (Rec: 01/22/22 14:59 [facility] [id number]) OP-PT Subjective Patient Comments Patient Comments Pt started new v-tach med a week ago and initially had some dizziness, but doing better and no symptoms today. Pt states he has not been doing exercises as frequently - doing once a day instead of twice. Pt did prone Is/Ys this morning. PT-OP-K Range of Motion Start: 11/30/21 20:15 Freq: Status: Active Protocol: Document 12/01/21 10:43 AMB (Rec: 12/01/21 11:22 AMB [id number]) Shoulder Goniometric Range of Motion Shoulder Right Passive Shoulder ROM WFL No Testing Position Supine Flexion 74 Abduction 55 External Rotation at 45 degrees 0 Abduction Internal Rotation 45 Comments IR at 45 abd PT-OP-M Strength Start: 11/30/21 20:15 Freq: Status: Active Protocol: Document 12/01/21 10:30 AMB (Rec: 12/01/21 15:40 AMB [id number]) Shoulder Strength Shoulder Manual Muscle Testing Right Flexion 3 Fair Abduction (C5) 3 Fair External Rotation 3 Fair Internal Rotation 4- Good- PT-OP-Q Treatments Start: 11/30/21 20:15 Freq: Status: Active Protocol: Document 01/22/22 13:44 NBM (Rec: 01/22/22 14:59 NBM [id number]) Cardio Equipment Upper Body Ergometer (UBE) Duration (Minutes) 3 Seat Position 12 Height 2 Other fwd/bck - pt urged to report increased pn - dc'd d/t incr R luis pn Therapeutic Exercises Supine Exercises self-STM Supine Exercise Name R UT, medial border of scap Side right Equipment Used tennis ball Reps/Minutes 3 min Comments wow, this is kind of amazing AROM serratus press Supine Exercise Name chest press to punch Side bilateral Resistance 0>1#>0# Reps/Minutes x10, x4 reps w/ 1# Comments cue for shoulder blades off mat, dc/d d/t post R luis pn w/ 1# Sidelying Exercises open book Side bilateral Reps/Minutes x5 reps ea Comments cues for scapular setting prior Sitting Exercises pully Sitting Exercise Name flex, scaption Side right Resistance AAROM Reps/Minutes 15 ea Comments cues to allow upward rotation of scapula Standing Exercises shoulder extension Standing Exercise Name HEP updated w/ 5 SH Resistance Lvl 1 Tb Reps/Minutes 10x 5 SH Comments improved self-correction for form ER Side right Equipment Used lvl 1 Reps/Minutes 15 t band rows Standing Exercise Name HEP updated w/ 5 SH Side bilateral Resistance #1 t band Reps/Minutes 10x 5SH Comments improving self-correction for form but initial cueing for UT overactivity Manual Therapy Treatment Soft Tissue Mobilization R shoulder Body Location R biceps, deltoid, UT Mobilization Type Myofascial Release,Rolling, Strumming,Sustained Pressure, Other Intensity/Depth Moderate Joint Mobilizations GH Joint R Direction distraction, post Grade II Self-Care/Home Management Treatment Education Patient Education Body Mechanics,Home Exercise Program,Posture Other Education HEP: Instructed to hold 5 sec w/ standing shoulder rows/ext; Self-STM w/ tennis ball to posterior R shoulder (against wall or lying down) - HO given PT-OP-R Modalities Start: 11/30/21 20:15 Freq: Status: Active Protocol: Document 01/22/22 13:44 NBM (Rec: 01/22/22 14:59 [facility] [id number]) Hot Pack/Cold Pack Treatment Cold Pack Location R shoulder Patient Position Hooklying Treatment Duration (minutes) 10 Patient Tolerance Good PT-OP-T Assessment and Plan Start: 11/30/21 20:15 Freq: Status: Active Protocol: Document 01/22/22 13:44 NBM (Rec: 01/22/22 14:59 [facility] [id number]) Physical Therapy Assessment Goals Three Impairment Return to activity Short Term Goal (STG) Hernandez will return to all dressing without shoulder pain . 12/15/21: Belt is the only issue because of reaching around back. STG Duration 5 weeks Brush Or Broom Cutter Goal (LTG) Hernandez will play 18 holes of golf without shoulder pain. LTG Duration 10 weeks Two Impairment Strength Short Term Goal (STG) Hernandez will lift 10 pounds to chest height without an increase in pain. STG Duration 5 weeks Longterm Goal (LTG) Hernandez will be independent and consistent with a HEP of stretching and strengthening. LTG Duration 10 weeks One Impairment ROM Short Term Goal (STG) Hernandez will improve his R PROM to 90 degrees of flexion. STG Duration 5 weeks Longterm Goal (LTG) Hernandez will improve his R AROM to 90 degrees of abduction. LTG Duration 10 weeks Assessment Summary Assessment Pt demonstrates much-improved self-awareness with reporting increased R shoulder pain w/ activity and staying within a pain-free range. Pt reports increased anterior R luis pain w/ UBE after three minutes, and increased posterior R luis pain w/ supine punch - post R luis pain improves w/ tactile cues for scapular setting, but pt unable to tolerate addition of 1# weight d/t pain in post R shoulder. Pt has a good feedback response to self -stm w/ tennis ball to R posterior shoulder. HEP: Pt instructed to hold 5 sec w/ standing shoulder rows/ext; Self-STM w/ tennis ball to posterior R shoulder (against wall or lying down) - HO given . Physical Therapy Plan Frequency and Duration Frequency of Treatment 2x/Week Duration of treatment (weeks) 6 Plan of Care Start Date 12/01/21 Plan of Care End Date 03/23/22 Therapeutic Interventions Therapeutic Interventions Home Exercise Program,Joint Mobilizations,Manual Therapy, Neuromuscular Re-education, Self-Care/Home Management, Therapeutic Activities, Therapeutic Exercises Modalities Cold Pack/Ice Massage,Hot Packs Next Visit Focus/Plan Next Note Type Treatment Note Next Visit Plan Add weights to serratus punch as tolerated, consider doing on pool noodle or foam roller. Sidelying scapular clocks with emphasis on activation of rhomboids, lower traps, inhibit UT. Consider IFES if continued posterior shoulder pain.
--- NOTE | 2022-01-26 17:25 | PT.OTN ---
Current Diagnoses Primary osteoarthritis, right shoulder (01/26/22) Physical Therapy Treatment Note PT-OP-A Visit Information Start: 11/30/21 20:15 Freq: Status: Active Protocol: Document 01/26/22 17:16 [facility] (Rec: 01/26/22 17:23 [facility] [id number]) Out-Patient Physical Therapy Visit Information Visit Information Visit Type Treatment Note Visit Start Time 13:45 Visit Stop Time 14:30 Total Visit Minutes 55 Visit Number 16 Number of DATA MIGRATION CONSULTANT Visits 0 Precautions Precautions Pacemaker DOS: 10/21 Protocol 6-12 weeks: range of motion unlimited, AROM, elastic cord exercises. Avoid extreme stretching and weight training until after 12 weeks. PT-OP-B Current Condition Start: 11/30/21 20:15 Freq: Status: Active Protocol: Document 12/01/21 10:28 AMB (Rec: 12/01/21 10:42 AMB [id number]) Current Condition History of Current Condition Onset Date 10/21/21 Current Complaints R reverse total shoulder History of Current Condition Pt attends PT after shoulder surgery, did have some pain after quickly moving shoulder while making bed, but otherwise hasn't had much pain . Has been doing pendulums and wrist/hand exercises at home. Saw two days ago and was told he could return to golfing, X-ray was all good . 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 PT-OP-C Subjective Start: 11/30/21 20:15 Freq: Status: Active Protocol: Document 01/26/22 17:16 SAK (Rec: 01/26/22 17:23 [facility] [id number]) OP-PT Subjective Patient Comments Patient Comments Still having some dizziness, can't get a straight answer about whether that is going to continue or subside after awhile. Shoulder slowly improving. Used tennis ball a couple times. PT-OP-K Range of Motion Start: 11/30/21 20:15 Freq: Status: Active Protocol: Document 12/01/21 10:43 AMB (Rec: 12/01/21 11:22 AMB [id number]) Shoulder Goniometric Range of Motion Shoulder Right Passive Shoulder ROM WFL No Testing Position Supine Flexion 74 Abduction 55 External Rotation at 45 degrees 0 Abduction Internal Rotation 45 Comments IR at 45 abd PT-OP-M Strength Start: 11/30/21 20:15 Freq: Status: Active Protocol: Document 12/01/21 10:30 AMB (Rec: 12/01/21 15:40 AMB [id number]) Shoulder Strength Shoulder Manual Muscle Testing Right Flexion 3 Fair Abduction (C5) 3 Fair External Rotation 3 Fair Internal Rotation 4- Good- PT-OP-Q Treatments Start: 11/30/21 20:15 Freq: Status: Active Protocol: Document 01/26/22 17:16 SAK (Rec: 01/26/22 17:23 SAK [id number]) Cardio Equipment Upper Body Ergometer (UBE) Other discontinued Therapeutic Exercises Supine Exercises self-STM Supine Exercise Name R UT, medial border of scap Side right Equipment Used tennis ball Reps/Minutes 3 min shoulder IR,ER Supine Exercise Name AAROM, also gentle contract/ relax for both motions followed by AROM new ROM Equipment Used towel roll Reps/Minutes 10x5 Comments cues for keeping shoulder from rolling forward with IR Sidelying Exercises abd Side right Resistance AROM Reps/Minutes 10 reps Comments cued slow fluid movement, manual upward rotation of scapula by PT ER AROM Side right Resistance AROM Equipment Used towel roll under arm Reps/Minutes 1x10, 1x5 with 1# Comments cued scap retract/depressed neutral, neutral wrist Standing Exercises over shoulder ball flick (ER) Equipment Used 10x throw into rebounder Equipment Used green ball Reps/Minutes 10x shoulder extension Standing Exercise Name HEP ER Standing Exercise Name HEP t band rows Standing Exercise Name HEP Manual Therapy Treatment Soft Tissue Mobilization scar massage Mobilization Type Instrument Assisted,Myofascial Release,Rolling Body Position Supine Comments small suction tool R shoulder Body Location R biceps, deltoid, UT Mobilization Type Myofascial Release,Rolling, Strumming,Sustained Pressure, Other Intensity/Depth Moderate Joint Mobilizations GH Joint R Direction distraction, post Grade II PT-OP-R Modalities Start: 11/30/21 20:15 Freq: Status: Active Protocol: Document 01/26/22 17:16 SAK (Rec: 01/26/22 17:23 SAK [id number]) Hot Pack/Cold Pack Treatment Cold Pack Location R shoulder Patient Position Hooklying Treatment Duration (minutes) 10 Patient Tolerance Good PT-OP-T Assessment and Plan Start: 11/30/21 20:15 Freq: Status: Active Protocol: Document 01/26/22 17:16 [facility] (Rec: 01/26/22 17:23 [facility] [id number]) Physical Therapy Assessment Goals Three Impairment Return to activity Short Term Goal (STG) Hernandez will return to all dressing without shoulder pain . 12/15/21: Belt is the only issue because of reaching around back. STG Duration 5 weeks Custodial Goal (LTG) Hernandez will play 18 holes of golf without shoulder pain. LTG Duration 10 weeks Two Impairment Strength Short Term Goal (STG) Hernandez will lift 10 pounds to chest height without an increase in pain. STG Duration 5 weeks Employee Relations Administrator Goal (LTG) Hernandez will be independent and consistent with a HEP of stretching and strengthening. LTG Duration 10 weeks One Impairment ROM Short Term Goal (STG) Hernandez will improve his R PROM to 90 degrees of flexion. STG Duration 5 weeks Custodial Goal (LTG) Hernandez will improve his R AROM to 90 degrees of abduction. LTG Duration 10 weeks Assessment Summary Assessment Improved sidelying ER strength . Shoulder IR ROM remains very limited, some improvement with contract/relax technique . Instructed in low load long duration ER stretch with UE supported by towel roll with good tolerance and understanding demonstrated. Physical Therapy Plan Frequency and Duration Frequency of Treatment 2x/Week Duration of treatment (weeks) 6 Plan of Care Start Date 12/01/21 Plan of Care End Date 03/23/22 Therapeutic Interventions Therapeutic Interventions Home Exercise Program,Joint Mobilizations,Manual Therapy, Neuromuscular Re-education, Self-Care/Home Management, Therapeutic Activities, Therapeutic Exercises Modalities Cold Pack/Ice Massage,Hot Packs Next Visit Focus/Plan Next Note Type Treatment Note Next Visit Plan Add weights to serratus punch as tolerated, consider doing on pool noodle or foam roller. Sidelying scapular clocks with emphasis on activation of rhomboids, lower traps, inhibit UT. Consider IFES if continued posterior shoulder pain.
--- NOTE | 2022-01-29 10:30 | PT.OTN ---
Current Diagnoses Primary osteoarthritis, right shoulder (01/29/22) Physical Therapy Treatment Note PT-OP-A Visit Information Start: 11/30/21 20:15 Freq: Status: Active Protocol: Document 01/29/22 09:49 SP (Rec: 01/29/22 10:34 SP [id number]) Out-Patient Physical Therapy Visit Information Visit Information Visit Type Treatment Note Visit Start Time 09:49 Visit Stop Time 10:30 Total Visit Minutes 41 Visit Number 17 Number of LOCAL FLATBED DRIVER Visits 1 Precautions Precautions Pacemaker DOS: 10/21 R shld Protocol 6-12 weeks: range of motion unlimited, AROM, elastic cord exercises. Avoid extreme stretching and weight training until after 12 weeks. PT-OP-B Current Condition Start: 11/30/21 20:15 Freq: Status: Active Protocol: Document 12/01/21 10:28 AMB (Rec: 12/01/21 10:42 AMB [id number]) Current Condition History of Current Condition Onset Date 10/21/21 Current Complaints R reverse total shoulder History of Current Condition Pt attends PT after shoulder surgery, did have some pain after quickly moving shoulder while making bed, but otherwise hasn't had much pain . Has been doing pendulums and wrist/hand exercises at home. Saw two days ago and was told he could return to golfing, X-ray was all good . 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 Treatment Goals Patient/Caregiver Goals Return golfing, being able to tune piano (needs to be able to lift arms to shoulder height), Personal Factors Other Personal Factors That May Effect R knee pain, Hx [place] (pacemaker) Therapy/Recovery . PT-OP-C Subjective Start: 11/30/21 20:15 Freq: Status: Active Protocol: Document 01/29/22 09:49 SP (Rec: 01/29/22 10:34 SP [id number]) OP-PT Subjective Patient Comments Patient Comments Pt saw ortho 2-3 weeks ago and not need Follow up. PT-OP-K Range of Motion Start: 11/30/21 20:15 Freq: Status: Active Protocol: Document 12/01/21 10:43 AMB (Rec: 12/01/21 11:22 AMB [id number]) Shoulder Goniometric Range of Motion Shoulder Right Passive Shoulder ROM WFL No Testing Position Supine Flexion 74 Abduction 55 External Rotation at 45 degrees 0 Abduction Internal Rotation 45 Comments IR at 45 abd PT-OP-M Strength Start: 11/30/21 20:15 Freq: Status: Active Protocol: Document 12/01/21 10:30 AMB (Rec: 12/01/21 15:40 AMB [id number]) Shoulder Strength Shoulder Manual Muscle Testing Right Flexion 3 Fair Abduction (C5) 3 Fair External Rotation 3 Fair Internal Rotation 4- Good- PT-OP-Q Treatments Start: 11/30/21 20:15 Freq: Status: Active Protocol: Document 01/29/22 09:49 SP (Rec: 01/29/22 10:34 SP [id number]) Therapeutic Exercises Supine Exercises shoulder IR,ER Supine Exercise Name AAROM, also gentle contract/ relax for both motions followed by AROM new ROM Equipment Used towel roll Reps/Minutes 10x5 Comments cues for keeping shoulder from rolling forward with IR AROM serratus press Supine Exercise Name serratus press Side bilateral Resistance 2# DB>1#>0#; 5# LUE Reps/Minutes x5 reps x3 Comments cue for shoulder blades no UT recruitment Sitting Exercises pully Sitting Exercise Name flex, scaption Side right Resistance AAROM Equipment Used mirror use no UT recruitment Reps/Minutes 15 ea Comments cues to allow upward rotation of scapula Standing Exercises should add/IR Standing Exercise Name IR towel stretch Equipment Used mirror for alignment Reps/Minutes 5x5 Comments cued level shld, choke up on towel on L no UT recruitment ER wand Standing Exercise Name added to HEP as alternative to supine arm alignment Side right Resistance AAROM Equipment Used wand, wall at corner back Reps/Minutes 10 sec hold x10 Comments cued maintain arm close to side and miantain wall walk Standing Exercise Name flexion- improved less to no UT recruitment Side right Reps/Minutes 15x3 Comments cued stop at resistance, breath allow scap depression- improved 2nd rep Manual Therapy Treatment Soft Tissue Mobilization R shoulder Body Location R biceps, deltoid, pec Mobilization Type Rolling,Strumming,Sustained Pressure,Other Intensity/Depth Moderate Body Position Hooklying Comments manual and instruction self STMS MWM rUE Joint Mobilizations GH Joint R Direction distraction, post Grade II scapulothoracic Joint R Direction posterior, inferior Grade II Body Position Sidelying Comments manual , improved scap retraction/depression- instruct scapular clocks next tx. PT-OP-R Modalities Start: 11/30/21 20:15 Freq: Status: Active Protocol: Document 01/26/22 17:16 SAK (Rec: 01/26/22 17:23 SAK [id number]) Hot Pack/Cold Pack Treatment Cold Pack Location R shoulder Patient Position Hooklying Treatment Duration (minutes) 10 Patient Tolerance Good PT-OP-T Assessment and Plan Start: 11/30/21 20:15 Freq: Status: Active Protocol: Document 01/29/22 09:49 SP (Rec: 01/29/22 10:34 SP [id number]) Physical Therapy Assessment Goals Three Impairment Return to activity Short Term Goal (STG) Hernandez will return to all dressing without shoulder pain . 12/15/21: Belt is the only issue because of reaching around back. STG Duration 5 weeks Senior Living Goal (LTG) Hernandez will play 18 holes of golf without shoulder pain. LTG Duration 10 weeks Two Impairment Strength Short Term Goal (STG) Hernandez will lift 10 pounds to chest height without an increase in pain. STG Duration 5 weeks Electro Optical Engineer Goal (LTG) Hernandez will be independent and consistent with a HEP of stretching and strengthening. LTG Duration 10 weeks One Impairment ROM Short Term Goal (STG) Hernandez will improve his R PROM to 90 degrees of flexion. STG Duration 5 weeks Electro Optical Engineer Goal (LTG) Hernandez will improve his R AROM to 90 degrees of abduction. LTG Duration 10 weeks Assessment Summary Assessment Pt didn't tolerated added wt to serratus press today. Pt improved understanding self STMs MWM pin LUE and move R arm. Pt improved ROM IR, ER with wand and towel use today. Recheck range next tx and continue rebounder. Physical Therapy Plan Frequency and Duration Frequency of Treatment 2x/Week Duration of treatment (weeks) 6 Plan of Care Start Date 12/01/21 Plan of Care End Date 03/23/22 Therapeutic Interventions Therapeutic Interventions Home Exercise Program,Joint Mobilizations,Manual Therapy, Neuromuscular Re-education, Self-Care/Home Management, Therapeutic Activities, Therapeutic Exercises Modalities Cold Pack/Ice Massage,Hot Packs Next Visit Focus/Plan Next Note Type Treatment Note Next Visit Plan Add weights to serratus punch as tolerated, consider doing on pool noodle or foam roller. Sidelying scapular clocks with emphasis on activation of rhomboids, lower traps, inhibit UT. Consider IFES if continued posterior shoulder pain.
--- NOTE | 2022-02-02 09:27 | PT.OTN ---
Current Diagnoses Primary osteoarthritis, right shoulder (02/02/22) Physical Therapy Treatment Note PT-OP-A Visit Information Start: 11/30/21 20:15 Freq: Status: Active Protocol: Document 02/02/22 08:16 SAK (Rec: 02/02/22 08:33 [facility] [id number]) Out-Patient Physical Therapy Visit Information Visit Information Visit Type Treatment Note Visit Start Time 08:15 Visit Stop Time 09:07 Total Visit Minutes 52 Visit Number 18 Number of WELFARE ANALYST Visits 0 Precautions Precautions Pacemaker DOS: 10/21 R shld Protocol 6-12 weeks: range of motion unlimited, AROM, elastic cord exercises. Avoid extreme stretching and weight training until after 12 weeks. PT-OP-B Current Condition Start: 11/30/21 20:15 Freq: Status: Active Protocol: Document 12/01/21 10:28 AMB (Rec: 12/01/21 10:42 AMB [id number]) Current Condition History of Current Condition Onset Date 10/21/21 Current Complaints R reverse total shoulder History of Current Condition Pt attends PT after shoulder surgery, did have some pain after quickly moving shoulder while making bed, but otherwise hasn't had much pain . Has been doing pendulums and wrist/hand exercises at home. Saw two days ago and was told he could return to golfing, X-ray was all good . 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 Treatment Goals Patient/Caregiver Goals Return golfing, being able to tune piano (needs to be able to lift arms to shoulder height), Personal Factors Other Personal Factors That May Effect R knee pain, Hx [place] (pacemaker) Therapy/Recovery . PT-OP-C Subjective Start: 11/30/21 20:15 Freq: Status: Active Protocol: Document 02/02/22 08:16 SAK (Rec: 02/02/22 08:33 [facility] [id number]) OP-PT Subjective Patient Comments Patient Comments towel exercise difficult. Feeling better during most daily activities though reaching behind his back remains difficult Patient Reported Progress Improving PT-OP-K Range of Motion Start: 11/30/21 20:15 Freq: Status: Active Protocol: Document 12/01/21 10:43 AMB (Rec: 12/01/21 11:22 AMB [id number]) Shoulder Goniometric Range of Motion Shoulder Right Passive Shoulder ROM WFL No Testing Position Supine Flexion 74 Abduction 55 External Rotation at 45 degrees 0 Abduction Internal Rotation 45 Comments IR at 45 abd PT-OP-M Strength Start: 11/30/21 20:15 Freq: Status: Active Protocol: Document 12/01/21 10:30 AMB (Rec: 12/01/21 15:40 AMB [id number]) Shoulder Strength Shoulder Manual Muscle Testing Right Flexion 3 Fair Abduction (C5) 3 Fair External Rotation 3 Fair Internal Rotation 4- Good- PT-OP-Q Treatments Start: 11/30/21 20:15 Freq: Status: Active Protocol: Document 02/02/22 08:16 SAK (Rec: 02/02/22 09:27 SAK [id number]) Therapeutic Exercises Supine Exercises supine I, Y,T Reps/Minutes 5x ea AROM then 30 stretch ea Comments try with L1 TB next session shoulder IR,ER Supine Exercise Name AAROM, also gentle contract/ relax for both motions followed by AROM new ROM Equipment Used towel roll Reps/Minutes 10x5 Comments cues for keeping shoulder from rolling forward with IR AROM serratus press Supine Exercise Name serratus press Side bilateral Equipment Used foam roller Reps/Minutes x5 reps x3 Comments cue for shoulder blades no UT recruitment Prone Exercises Y Prone Exercise Name HEP I, T Prone Exercise Name HEP Sidelying Exercises scapular clock Sidelying Exercise Name 9:00, 8:00, 7:00 Side right Resistance manual Reps/Minutes 5x5 each Sitting Exercises shoulder ER Reps/Minutes 5x AROM, 3x contract/relax, 5x AROM Comments upper arm supported on charting table pully Sitting Exercise Name flex, scaption Side right Resistance AAROM Equipment Used mirror use no UT recruitment Reps/Minutes 15 ea Comments cues to allow upward rotation of scapula Standing Exercises should add/IR Standing Exercise Name IR towel stretch Equipment Used mirror for alignment Reps/Minutes 5x5 Comments cued level shld, choke up on towel on L no UT recruitment ER wand Side right Resistance AAROM Equipment Used wand, wall at corner back Reps/Minutes 10 sec hold x10 Comments cued maintain arm close to side and miantain t band rows Standing Exercise Name HEP Manual Therapy Treatment Soft Tissue Mobilization scar massage Mobilization Type Instrument Assisted,Myofascial Release,Rolling Body Position Supine Comments small suction tool Joint Mobilizations GH Joint R Direction distraction, post Grade II scapulothoracic Joint R Direction posterior, inferior Grade II Body Position Sidelying PT-OP-R Modalities Start: 11/30/21 20:15 Freq: Status: Active Protocol: Document 02/02/22 08:16 SAK (Rec: 02/02/22 09:27 SAK [id number]) Hot Pack/Cold Pack Treatment Cold Pack Location R shoulder Patient Position Hooklying Treatment Duration (minutes) 10 Patient Tolerance Good PT-OP-T Assessment and Plan Start: 11/30/21 20:15 Freq: Status: Active Protocol: Document 01/29/22 09:49 SP (Rec: 01/29/22 10:34 SP [id number]) Physical Therapy Assessment Goals Three Impairment Return to activity Short Term Goal (STG) Hernandez will return to all dressing without shoulder pain . 12/15/21: Belt is the only issue because of reaching around back. STG Duration 5 weeks Jail Goal (LTG) Hernandez will play 18 holes of golf without shoulder pain. LTG Duration 10 weeks Two Impairment Strength Short Term Goal (STG) Hernandez will lift 10 pounds to chest height without an increase in pain. STG Duration 5 weeks Real Estate Paralegal Goal (LTG) Hernandez will be independent and consistent with a HEP of stretching and strengthening. LTG Duration 10 weeks One Impairment ROM Short Term Goal (STG) Hernandez will improve his R PROM to 90 degrees of flexion. STG Duration 5 weeks Real Estate Paralegal Goal (LTG) Hernandez will improve his R AROM to 90 degrees of abduction. LTG Duration 10 weeks Assessment Summary Assessment Pt didn't tolerated added wt to serratus press today. Pt improved understanding self STMs MWM pin LUE and move R arm. Pt improved ROM IR, ER with wand and towel use today. Recheck range next tx and continue rebounder. Physical Therapy Plan Frequency and Duration Frequency of Treatment 2x/Week Duration of treatment (weeks) 6 Plan of Care Start Date 12/01/21 Plan of Care End Date 03/23/22 Therapeutic Interventions Therapeutic Interventions Home Exercise Program,Joint Mobilizations,Manual Therapy, Neuromuscular Re-education, Self-Care/Home Management, Therapeutic Activities, Therapeutic Exercises Modalities Cold Pack/Ice Massage,Hot Packs Next Visit Focus/Plan Next Note Type Treatment Note Next Visit Plan Add weights to serratus punch as tolerated, consider doing on pool noodle or foam roller. Sidelying scapular clocks with emphasis on activation of rhomboids, lower traps, inhibit UT. Consider IFES if continued posterior shoulder pain.
--- NOTE | 2022-02-05 10:52 | PT.OTN ---
Current Diagnoses Primary osteoarthritis, right shoulder (02/05/22) Physical Therapy Treatment Note PT-OP-A Visit Information Start: 11/30/21 20:15 Freq: Status: Active Protocol: Document 02/05/22 10:05 NBM (Rec: 02/05/22 10:52 [facility] [id number]) Out-Patient Physical Therapy Visit Information Visit Information Visit Type Treatment Note Visit Start Time 10:00 Visit Stop Time 10:45 Total Visit Minutes 45 Visit Number 19 Number of RESIDENTIAL DOOR UNIT INSTALLER Visits 1 PT-OP-B Current Condition Start: 11/30/21 20:15 Freq: Status: Active Protocol: Document 12/01/21 10:28 AMB (Rec: 12/01/21 10:42 AMB [id number]) Current Condition History of Current Condition Onset Date 10/21/21 Current Complaints R reverse total shoulder History of Current Condition Pt attends PT after shoulder surgery, did have some pain after quickly moving shoulder while making bed, but otherwise hasn't had much pain . Has been doing pendulums and wrist/hand exercises at home. Saw two days ago and was told he could return to golfing, X-ray was all good . 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 Treatment Goals Patient/Caregiver Goals Return golfing, being able to tune piano (needs to be able to lift arms to shoulder height), Personal Factors Other Personal Factors That May Effect R knee pain, Hx [place] (pacemaker) Therapy/Recovery . PT-OP-C Subjective Start: 11/30/21 20:15 Freq: Status: Active Protocol: Document 02/05/22 10:05 NBM (Rec: 02/05/22 10:52 NB [id number]) OP-PT Subjective Patient Comments Patient Comments Pt reports he is feeling well today and getting better bit by bit. PT-OP-K Range of Motion Start: 11/30/21 20:15 Freq: Status: Active Protocol: Document 12/01/21 10:43 AMB (Rec: 12/01/21 11:22 AMB [id number]) Shoulder Goniometric Range of Motion Shoulder Right Passive Shoulder ROM WFL No Testing Position Supine Flexion 74 Abduction 55 External Rotation at 45 degrees 0 Abduction Internal Rotation 45 Comments IR at 45 abd PT-OP-M Strength Start: 11/30/21 20:15 Freq: Status: Active Protocol: Document 12/01/21 10:30 AMB (Rec: 12/01/21 15:40 AMB [id number]) Shoulder Strength Shoulder Manual Muscle Testing Right Flexion 3 Fair Abduction (C5) 3 Fair External Rotation 3 Fair Internal Rotation 4- Good- PT-OP-Q Treatments Start: 11/30/21 20:15 Freq: Status: Active Protocol: Document 02/05/22 10:05 NBM (Rec: 02/05/22 10:52 NBM [id number]) Therapeutic Exercises Supine Exercises supine I, Y,T Resistance Lv1 Tb Reps/Minutes 5x ea AROM then w/ Tb Comments No twinge w/ Is w/ Tb, AROM serratus press Supine Exercise Name serratus press Side bilateral Equipment Used foam roller Reps/Minutes [id number], x10 w/ 2# ea Comments cue for shoulder blades no UT recruitment Sitting Exercises UT, LS stretch Side bilateral Reps/Minutes 30 x2 Comments cued chin tuck Standing Exercises chest press Side bilateral Equipment Used Lv2 Tb over shoulder ball flick (ER) Equipment Used 10x throw into rebounder Standing Exercise Name long towel stretch Side right Reps/Minutes x2 min Comments R luis stiffened up ER Side right Resistance L1 Tb Reps/Minutes x15 IR Side right Equipment Used L2>L1 d/t pain Reps/Minutes 10x Comments no increase in baseline sx w/ L1 Tb, min cue for UT overactivation t band rows Side bilateral Resistance Lvl2 Tb Reps/Minutes x10, 10x 5SH Comments Cues not to bring shoulder into hyperextension. Manual Therapy Treatment Soft Tissue Mobilization R shoulder Body Location R biceps, deltoid, pec Mobilization Type Rolling,Strumming,Sustained Pressure,Other Intensity/Depth Moderate Body Position Hooklying Comments manual and instruction self STMS MWM rUE PT-OP-R Modalities Start: 11/30/21 20:15 Freq: Status: Active Protocol: Document 02/02/22 08:16 SAK (Rec: 02/02/22 09:27 SAK [id number]) Hot Pack/Cold Pack Treatment Cold Pack Location R shoulder Patient Position Hooklying Treatment Duration (minutes) 10 Patient Tolerance Good PT-OP-T Assessment and Plan Start: 11/30/21 20:15 Freq: Status: Active Protocol: Document 02/05/22 10:05 NBM (Rec: 02/05/22 10:52 NBM [id number]) Physical Therapy Assessment Goals Three Impairment Return to activity Short Term Goal (STG) Hernandez will return to all dressing without shoulder pain . 12/15/21: Belt is the only issue because of reaching around back. STG Duration 5 weeks Paver Layer Goal (LTG) Hernandez will play 18 holes of golf without shoulder pain. LTG Duration 10 weeks Two Impairment Strength Short Term Goal (STG) Hernandez will lift 10 pounds to chest height without an increase in pain. STG Duration 5 weeks Paver Layer Goal (LTG) Hernandez will be independent and consistent with a HEP of stretching and strengthening. LTG Duration 10 weeks One Impairment ROM Short Term Goal (STG) Hernandez will improve his R PROM to 90 degrees of flexion. STG Duration 5 weeks Nursing Home Goal (LTG) Hernandez will improve his R AROM to 90 degrees of abduction. LTG Duration 10 weeks Assessment Summary Assessment Pt tolerated increased weight to 2# with supine serratus punch without pain. Pt requires min cues for chin tuck and tall posture and UT overactivation and mod cues for scapular resetting, especially with as pt fatigues . Physical Therapy Plan Next Visit Focus/Plan Next Note Type Treatment Note Next Visit Plan Assess response to last treatment. Sidelying scapular clocks with emphasis on activation of rhomboids, lower traps, inhibit UT. Consider IFES if continued posterior shoulder pain.
--- NOTE | 2022-02-16 16:20 | PT.OPPN ---
Current Diagnoses Primary osteoarthritis, right shoulder (02/16/22) Physical Therapy Progress Note PT-OP-A Visit Information Start: 11/30/21 20:15 Freq: Status: Active Protocol: Document 02/16/22 15:13 [facility] (Rec: 02/16/22 16:28 [facility] [id number]) Out-Patient Physical Therapy Visit Information Visit Information Visit Type Treatment Note Visit Start Time 15:15 Visit Number 20 Number of BOILER HOUSE INSPECTOR Visits 0 Precautions Precautions Pacemaker DOS: 10/21 R shld Protocol 6-12 weeks: range of motion unlimited, AROM, elastic cord exercises. Avoid extreme stretching and weight training until after 12 weeks. PT-OP-B Current Condition Start: 11/30/21 20:15 Freq: Status: Active Protocol: Document 12/01/21 10:28 AMB (Rec: 12/01/21 10:42 AMB [id number]) Current Condition History of Current Condition Onset Date 10/21/21 Current Complaints R reverse total shoulder History of Current Condition Pt attends PT after shoulder surgery, did have some pain after quickly moving shoulder while making bed, but otherwise hasn't had much pain . Has been doing pendulums and wrist/hand exercises at home. Saw two days ago and was told he could return to golfing, X-ray was all good . 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 Treatment Goals Patient/Caregiver Goals Return golfing, being able to tune piano (needs to be able to lift arms to shoulder height), Personal Factors Other Personal Factors That May Effect R knee pain, Hx [place] (pacemaker) Therapy/Recovery . PT-OP-C Subjective Start: 11/30/21 20:15 Freq: Status: Active Protocol: Document 02/16/22 15:13 [facility] (Rec: 02/16/22 16:28 [facility] [id number]) OP-PT Subjective Patient Comments Patient Comments Now not able to drive until end of April due to cardiac issue; 4th or 5th incident of V-tach since October. On new medication, but didn't stop most recent episode. Can't do a full golf swing, most difficult to reach behind back for ADL's but improving. Can now use cu PT-OP-K Range of Motion Start: 11/30/21 20:15 Freq: Status: Active Protocol: Document 12/01/21 10:43 AMB (Rec: 12/01/21 11:22 AMB [id number]) Shoulder Goniometric Range of Motion Shoulder Measured in Degrees Right Passive Shoulder ROM WFL No Testing Position Supine Flexion 74 Abduction 55 External Rotation at 45 degrees 0 Abduction Internal Rotation 45 Comments IR at 45 abd PT-OP-M Strength Start: 11/30/21 20:15 Freq: Status: Active Protocol: Document 12/01/21 10:30 AMB (Rec: 12/01/21 15:40 AMB [id number]) Shoulder Strength Shoulder Manual Muscle Testing Right Flexion 3 Fair Abduction (C5) 3 Fair External Rotation 3 Fair Internal Rotation 4- Good- PT-OP-T Assessment and Plan Start: 11/30/21 20:15 Freq: Status: Active Protocol: Document 02/16/22 15:13 SAK (Rec: 02/16/22 16:28 SAK [id number]) Physical Therapy Assessment Goals Three Impairment Return to activity Short Term Goal (STG) Hernandez will return to all dressing without shoulder pain . 12/15/21: Belt is the only issue because of reaching around back. 02/16/22: now able to do belt but with much effort, starting to be able to put wallet in pocket. Unable to wash back with right UE yet. STG Duration 02/23/22 Auto Headlight Mechanic Goal (LTG) Hernandez will play 18 holes of golf without shoulder pain. 02/16/22: goal progress, can now hit a bucket of balls, though reports poor distance, lack of strength LTG Duration 03/23/22 Two Impairment Strength Short Term Goal (STG) Hernandez will lift 10 pounds to chest height without an increase in pain. 02/16/22: goal progress STG Duration 02/23/22 Care Home Goal (LTG) Hernandez will be independent and consistent with a HEP of stretching and strengthening. 02/16/22: continue to progress HEP. He requires cues to decrease overactivation of UT and demonstrates scapular dyskinesia which is improving with PT, but needs further work. LTG Duration 03/23/22 One Impairment ROM Short Term Goal (STG) Hernandez will improve his R PROM to 90 degrees of flexion. STG Duration goal met Auto Headlight Mechanic Goal (LTG) Hernandez will improve his R AROM to 90 degrees of abduction. 02/16/22: goal progress, 83 degrees but with overactivation of UT LTG Duration 03/23/22 Assessment Summary Assessment Patient shoulder function continues to improve with fair to good compliance with HEP. Complicated by cardiac issues including V-tach, variable BP , dizziness. Pain 1/10 at beginning of PT session. Quickdash UE disability index score 18%. Physical Therapy Plan Frequency and Duration Frequency of Treatment 2x/Week Duration of treatment (weeks) 6 Plan of Care Start Date 12/01/21 Plan of Care End Date 03/23/22 Therapeutic Interventions Therapeutic Interventions Home Exercise Program,Joint Mobilizations,Manual Therapy, Neuromuscular Re-education, Self-Care/Home Management, Therapeutic Activities, Therapeutic Exercises Modalities Cold Pack/Ice Massage,Hot Packs Next Visit Focus/Plan Next Note Type Treatment Note Next Visit Plan Assess response to last treatment. Continue shoulder ROM and strengthening. Sidelying scapular clocks with emphasis on activation of rhomboids, lower traps, inhibit UT.
--- NOTE | 2022-02-16 16:29 | PT.OTN ---
Current Diagnoses Primary osteoarthritis, right shoulder (02/16/22) Physical Therapy Treatment Note PT-OP-A Visit Information Start: 11/30/21 20:15 Freq: Status: Active Protocol: Document 02/16/22 15:13 [facility] (Rec: 02/16/22 16:28 [facility] [id number]) Out-Patient Physical Therapy Visit Information Visit Information Visit Type Treatment Note Visit Start Time 15:15 Visit Number 20 Number of FACTORY CLERK Visits 0 Precautions Precautions Pacemaker DOS: 10/21 R shld Protocol 6-12 weeks: range of motion unlimited, AROM, elastic cord exercises. Avoid extreme stretching and weight training until after 12 weeks. PT-OP-B Current Condition Start: 11/30/21 20:15 Freq: Status: Active Protocol: Document 12/01/21 10:28 AMB (Rec: 12/01/21 10:42 AMB [id number]) Current Condition History of Current Condition Onset Date 10/21/21 Current Complaints R reverse total shoulder History of Current Condition Pt attends PT after shoulder surgery, did have some pain after quickly moving shoulder while making bed, but otherwise hasn't had much pain . Has been doing pendulums and wrist/hand exercises at home. Saw two days ago and was told he could return to golfing, X-ray was all good . 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 Treatment Goals Patient/Caregiver Goals Return golfing, being able to tune piano (needs to be able to lift arms to shoulder height), Personal Factors Other Personal Factors That May Effect R knee pain, Hx [place] (pacemaker) Therapy/Recovery . PT-OP-C Subjective Start: 11/30/21 20:15 Freq: Status: Active Protocol: Document 02/16/22 15:13 [facility] (Rec: 02/16/22 16:28 [facility] [id number]) OP-PT Subjective Patient Comments Patient Comments Now not able to drive until end of April due to cardiac issue; 4th or 5th incident of V-tach since October. On new medication, but didn't stop most recent episode. Can't do a full golf swing, most difficult to reach behind back for ADL's but improving. Can now use cu PT-OP-K Range of Motion Start: 11/30/21 20:15 Freq: Status: Active Protocol: Document 12/01/21 10:43 AMB (Rec: 12/01/21 11:22 AMB [id number]) Shoulder Goniometric Range of Motion Shoulder Right Passive Shoulder ROM WFL No Testing Position Supine Flexion 74 Abduction 55 External Rotation at 45 degrees 0 Abduction Internal Rotation 45 Comments IR at 45 abd PT-OP-M Strength Start: 11/30/21 20:15 Freq: Status: Active Protocol: Document 12/01/21 10:30 AMB (Rec: 12/01/21 15:40 AMB [id number]) Shoulder Strength Shoulder Manual Muscle Testing Right Flexion 3 Fair Abduction (C5) 3 Fair External Rotation 3 Fair Internal Rotation 4- Good- PT-OP-Q Treatments Start: 11/30/21 20:15 Freq: Status: Active Protocol: Document 02/16/22 15:13 SAK (Rec: 02/16/22 16:28 SAK [id number]) Therapeutic Exercises Prone Exercises Y Prone Exercise Name HEP I, T Prone Exercise Name HEP Sidelying Exercises scapular clock Sidelying Exercise Name 9:00, 8:00, 7:00 Side right Resistance manual Reps/Minutes 5x5 each Sitting Exercises shoulder ER Reps/Minutes 5x AROM, 3x contract/relax, 5x AROM Comments upper arm supported on charting table Standing Exercises Y Standing Exercise Name wall lift off Reps/Minutes 5x PNF Resistance L1 TB Manual Therapy Treatment Soft Tissue Mobilization R shoulder Body Location R biceps, deltoid, pec Mobilization Type Rolling,Strumming,Sustained Pressure,Other Intensity/Depth Moderate Body Position Hooklying Comments manual and instruction self STMS MWM rUE PT-OP-R Modalities Start: 11/30/21 20:15 Freq: Status: Active Protocol: Document 02/02/22 08:16 SAK (Rec: 02/02/22 09:27 SAK [id number]) Hot Pack/Cold Pack Treatment Cold Pack Location R shoulder Patient Position Hooklying Treatment Duration (minutes) 10 Patient Tolerance Good PT-OP-T Assessment and Plan Start: 11/30/21 20:15 Freq: Status: Active Protocol: Document 02/16/22 15:13 SAK (Rec: 02/16/22 16:28 SAK [id number]) Physical Therapy Assessment Goals Three Impairment Return to activity Short Term Goal (STG) Hernandez will return to all dressing without shoulder pain . 12/15/21: Belt is the only issue because of reaching around back. 02/16/22: now able to do belt but with much effort, starting to be able to put wallet in pocket. Unable to wash back with right UE yet. STG Duration 02/23/22 Basic Combatant Swimmer Goal (LTG) Hernandez will play 18 holes of golf without shoulder pain. 02/16/22: goal progress, can now hit a bucket of balls, though reports poor distance, lack of strength LTG Duration 03/23/22 Two Impairment Strength Short Term Goal (STG) Hernandez will lift 10 pounds to chest height without an increase in pain. 02/16/22: goal progress STG Duration 02/23/22 Care Home Goal (LTG) Hernandez will be independent and consistent with a HEP of stretching and strengthening. 02/16/22: continue to progress HEP. He requires cues to decrease overactivation of UT and demonstrates scapular dyskinesia which is improving with PT, but needs further work. LTG Duration 03/23/22 One Impairment ROM Short Term Goal (STG) Hernandez will improve his R PROM to 90 degrees of flexion. STG Duration goal met Basic Combatant Swimmer Goal (LTG) Hernandez will improve his R AROM to 90 degrees of abduction. 02/16/22: goal progress, 83 degrees but with overactivation of UT LTG Duration 03/23/22 Assessment Summary Assessment Patient shoulder function continues to improve with fair to good compliance with HEP. Complicated by cardiac issues including V-tach, variable BP , dizziness. Physical Therapy Plan Frequency and Duration Frequency of Treatment 2x/Week Duration of treatment (weeks) 6 Plan of Care Start Date 12/01/21 Plan of Care End Date 03/23/22 Therapeutic Interventions Therapeutic Interventions Home Exercise Program,Joint Mobilizations,Manual Therapy, Neuromuscular Re-education, Self-Care/Home Management, Therapeutic Activities, Therapeutic Exercises Modalities Cold Pack/Ice Massage,Hot Packs Next Visit Focus/Plan Next Note Type Treatment Note Next Visit Plan Assess response to last treatment. Continue shoulder ROM and strengthening. Sidelying scapular clocks with emphasis on activation of rhomboids, lower traps, inhibit UT.
--- NOTE | 2022-02-18 08:16 | PT.OTN ---
Current Diagnoses Primary osteoarthritis, right shoulder (02/18/22) Physical Therapy Treatment Note PT-OP-A Visit Information Start: 11/30/21 20:15 Freq: Status: Active Protocol: Document 02/18/22 07:25 [facility] (Rec: 02/18/22 08:16 [facility] [id number]) Out-Patient Physical Therapy Visit Information Visit Information Visit Type Treatment Note Visit Start Time 07:30 Visit Number 21 Number of ASSEMBLER MUSICAL EQUIPMENT Visits 0 PT-OP-B Current Condition Start: 11/30/21 20:15 Freq: Status: Active Protocol: Document 12/01/21 10:28 AMB (Rec: 12/01/21 10:42 AMB [id number]) Current Condition History of Current Condition Onset Date 10/21/21 Current Complaints R reverse total shoulder History of Current Condition Pt attends PT after shoulder surgery, did have some pain after quickly moving shoulder while making bed, but otherwise hasn't had much pain . Has been doing pendulums and wrist/hand exercises at home. Saw two days ago and was told he could return to golfing, X-ray was all good . 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 Treatment Goals Patient/Caregiver Goals Return golfing, being able to tune piano (needs to be able to lift arms to shoulder height), Personal Factors Other Personal Factors That May Effect R knee pain, Hx [place] (pacemaker) Therapy/Recovery . PT-OP-C Subjective Start: 11/30/21 20:15 Freq: Status: Active Protocol: Document 02/18/22 07:25 [facility] (Rec: 02/18/22 08:16 [facility] [id number]) OP-PT Subjective Patient Comments Patient Comments pt reports most difficult range is reaching to his back pocket PT-OP-K Range of Motion Start: 11/30/21 20:15 Freq: Status: Active Protocol: Document 12/01/21 10:43 AMB (Rec: 12/01/21 11:22 AMB [id number]) Shoulder Goniometric Range of Motion Shoulder Right Passive Shoulder ROM WFL No Testing Position Supine Flexion 74 Abduction 55 External Rotation at 45 degrees 0 Abduction Internal Rotation 45 Comments IR at 45 abd PT-OP-M Strength Start: 11/30/21 20:15 Freq: Status: Active Protocol: Document 12/01/21 10:30 AMB (Rec: 12/01/21 15:40 AMB [id number]) Shoulder Strength Shoulder Manual Muscle Testing Right Flexion 3 Fair Abduction (C5) 3 Fair External Rotation 3 Fair Internal Rotation 4- Good- PT-OP-Q Treatments Start: 11/30/21 20:15 Freq: Status: Active Protocol: Document 02/18/22 07:25 [facility] (Rec: 02/18/22 08:16 [facility] [id number]) Therapeutic Exercises Supine Exercises AROM serratus press Supine Exercise Name chest press to serratus punch Side bilateral Equipment Used 2# Reps/Minutes 10 Sidelying Exercises sleeper stretch Side right Reps/Minutes 30 sec Sitting Exercises shoulder ER Side right Equipment Used 1 lb Reps/Minutes 10 Comments upper arm supported on charting table pully Sitting Exercise Name flex, scaption, abd, IR Side right Resistance AAROM Reps/Minutes 10 ea Standing Exercises overhead press Side bilateral Reps/Minutes 2x6 Comments mirror for cues for scap Y Standing Exercise Name wall lift off Side bilateral Equipment Used Lvl 1 Reps/Minutes 10 posterior capsule stretch Side right Reps/Minutes 30 sec Comments back to wall to pin scap ER Side right Resistance L1 Tb Reps/Minutes x15 Manual Therapy Treatment Soft Tissue Mobilization scar massage Mobilization Type Myofascial Release Intensity/Depth Superficial Body Position Supine R shoulder Body Location R delt, subscap, pec, bicep Mobilization Type Rolling,Strumming,Sustained Pressure,Other Intensity/Depth Moderate Comments w/rotation Joint Mobilizations GH Joint R Direction post Grade II AC Joint R Direction gapping FM Grade II PT-OP-R Modalities Start: 11/30/21 20:15 Freq: Status: Active Protocol: Document 02/02/22 08:16 SAK (Rec: 02/02/22 09:27 SAK [id number]) Hot Pack/Cold Pack Treatment Cold Pack Location R shoulder Patient Position Hooklying Treatment Duration (minutes) 10 Patient Tolerance Good PT-OP-T Assessment and Plan Start: 11/30/21 20:15 Freq: Status: Active Protocol: Document 02/18/22 07:25 [facility] (Rec: 02/18/22 08:16 [facility] [id number]) Physical Therapy Assessment Goals Three Impairment Return to activity Short Term Goal (STG) Hernandez will return to all dressing without shoulder pain . 12/15/21: Belt is the only issue because of reaching around back. 02/16/22: now able to do belt but with much effort, starting to be able to put wallet in pocket. Unable to wash back with right UE yet. STG Duration 02/23/22 Long-Term Goal (LTG) Hernandez will play 18 holes of golf without shoulder pain. 02/16/22: goal progress, can now hit a bucket of balls, though reports poor distance, lack of strength LTG Duration 03/23/22 Two Impairment Strength Short Term Goal (STG) Hernandez will lift 10 pounds to chest height without an increase in pain. 02/16/22: goal progress STG Duration 02/23/22 Long-Term Goal (LTG) Hernandez will be independent and consistent with a HEP of stretching and strengthening. 02/16/22: continue to progress HEP. He requires cues to decrease overactivation of UT and demonstrates scapular dyskinesia which is improving with PT, but needs further work. LTG Duration 03/23/22 One Impairment ROM Short Term Goal (STG) Hernandez will improve his R PROM to 90 degrees of flexion. STG Duration goal met Continuing Education Director Goal (LTG) Hernandez will improve his R AROM to 90 degrees of abduction. 02/16/22: goal progress, 83 degrees but with overactivation of UT LTG Duration 03/23/22 Assessment Summary Assessment Pt did well with exercises w/o c/o pain with occ cueing or use of mirror needed to help w /pt awareness of movement pattern. Improved IR w/manual Physical Therapy Plan Frequency and Duration Frequency of Treatment 2x/Week Duration of treatment (weeks) 6 Plan of Care Start Date 12/01/21 Plan of Care End Date 03/23/22 Next Visit Focus/Plan Next Note Type Treatment Note Next Visit Plan Assess response to last treatment. Continue shoulder ROM and strengthening. Sidelying scapular clocks with emphasis on activation of rhomboids, lower traps, inhibit UT.
--- NOTE | 2022-02-23 08:16 | PT.OTN ---
Current Diagnoses Primary osteoarthritis, right shoulder (02/23/22) Physical Therapy Treatment Note PT-OP-A Visit Information Start: 11/30/21 20:15 Freq: Status: Active Protocol: Document 02/23/22 07:27 [facility] (Rec: 02/23/22 08:16 [facility] [id number]) Out-Patient Physical Therapy Visit Information Visit Information Visit Type Treatment Note Visit Start Time 07:30 Visit Stop Time 08:21 Total Visit Minutes 51 Visit Number 22 Number of BILLING REPRESENTATIVE Visits 0 PT-OP-B Current Condition Start: 11/30/21 20:15 Freq: Status: Active Protocol: Document 12/01/21 10:28 AMB (Rec: 12/01/21 10:42 AMB [id number]) Current Condition History of Current Condition Onset Date 10/21/21 Current Complaints R reverse total shoulder History of Current Condition Pt attends PT after shoulder surgery, did have some pain after quickly moving shoulder while making bed, but otherwise hasn't had much pain . Has been doing pendulums and wrist/hand exercises at home. Saw two days ago and was told he could return to golfing, X-ray was all good . 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 PT-OP-C Subjective Start: 11/30/21 20:15 Freq: Status: Active Protocol: Document 02/23/22 07:27 [facility] (Rec: 02/23/22 08:16 [facility] [id number]) OP-PT Subjective Patient Comments Patient Comments Pt reports he did some weights in cardio yesterday and felt good. he felt like he was strong enough to do overhead activities. PT-OP-K Range of Motion Start: 11/30/21 20:15 Freq: Status: Active Protocol: Document 12/01/21 10:43 AMB (Rec: 12/01/21 11:22 AMB [id number]) Shoulder Goniometric Range of Motion Shoulder Right Passive Shoulder ROM WFL No Testing Position Supine Flexion 74 Abduction 55 External Rotation at 45 degrees 0 Abduction Internal Rotation 45 Comments IR at 45 abd PT-OP-M Strength Start: 11/30/21 20:15 Freq: Status: Active Protocol: Document 12/01/21 10:30 AMB (Rec: 12/01/21 15:40 AMB [id number]) Shoulder Strength Shoulder Manual Muscle Testing Right Flexion 3 Fair Abduction (C5) 3 Fair External Rotation 3 Fair Internal Rotation 4- Good- PT-OP-Q Treatments Start: 11/30/21 20:15 Freq: Status: Active Protocol: Document 02/23/22 07:27 [facility] (Rec: 02/23/22 08:16 [facility] [id number]) Therapeutic Exercises Sidelying Exercises sleeper stretch Side right Reps/Minutes 30 sec abd Side right Reps/Minutes 10 reps Comments cued slow fluid movement, manual upward rotation of scapula by PT ER AROM Side right Resistance 1# Equipment Used towel roll under arm Reps/Minutes 10 Sitting Exercises pully Sitting Exercise Name flex, scaption, abd, IR Side right Resistance AAROM Reps/Minutes 10 ea Standing Exercises overhead press Side bilateral Equipment Used 2# Reps/Minutes 10, 6 Comments mirror for cues for scap&vc Y Standing Exercise Name wall lift off Side bilateral Equipment Used Lvl 1 Reps/Minutes 10 PNF Standing Exercise Name D2 flex, D1 flex Resistance L1 TB Reps/Minutes 10 posterior capsule stretch Side right Reps/Minutes 30 sec Comments back to wall to pin scap Manual Therapy Treatment Soft Tissue Mobilization scap Body Location R med border and under scap Mobilization Type Sustained Pressure Intensity/Depth Moderate Body Position Sidelying R shoulder Body Location R lats, teres Mobilization Type Rolling,Strumming,Sustained Pressure,Other Intensity/Depth Moderate Comments w/AAROm flex Joint Mobilizations SC Joint R Direction AP & inf & sup FM GH Joint R Direction distraction FM Grade II AC Joint R Direction AP clavicle FM Grade II PT-OP-R Modalities Start: 11/30/21 20:15 Freq: Status: Active Protocol: Document 02/02/22 08:16 [facility] (Rec: 02/02/22 09:27 [facility] [id number]) Hot Pack/Cold Pack Treatment Cold Pack Location R shoulder Patient Position Hooklying Treatment Duration (minutes) 10 Patient Tolerance Good PT-OP-T Assessment and Plan Start: 11/30/21 20:15 Freq: Status: Active Protocol: Document 02/23/22 07:27 [facility] (Rec: 02/23/22 08:16 [facility] [id number]) Physical Therapy Assessment Goals Three Impairment Return to activity Short Term Goal (STG) Hernandez will return to all dressing without shoulder pain . 12/15/21: Belt is the only issue because of reaching around back. 02/16/22: now able to do belt but with much effort, starting to be able to put wallet in pocket. Unable to wash back with right UE yet. STG Duration 02/23/22 Usp Goal (LTG) Hernandez will play 18 holes of golf without shoulder pain. 02/16/22: goal progress, can now hit a bucket of balls, though reports poor distance, lack of strength LTG Duration 03/23/22 Two Impairment Strength Short Term Goal (STG) Hernandez will lift 10 pounds to chest height without an increase in pain. 02/16/22: goal progress STG Duration 02/23/22 Dialysis Tech Goal (LTG) Hernandez will be independent and consistent with a HEP of stretching and strengthening. 02/16/22: continue to progress HEP. He requires cues to decrease overactivation of UT and demonstrates scapular dyskinesia which is improving with PT, but needs further work. LTG Duration 03/23/22 One Impairment ROM Short Term Goal (STG) Hernandez will improve his R PROM to 90 degrees of flexion. STG Duration goal met Usp Goal (LTG) Hernandez will improve his R AROM to 90 degrees of abduction. 02/16/22: goal progress, 83 degrees but with overactivation of UT LTG Duration 03/23/22 Assessment Summary Assessment Pt does still require cues w/ overhead exercises along w/ fatigues w/overhead mobility. He had imrpoved ROM across body w/manual today. Physical Therapy Plan Frequency and Duration Frequency of Treatment 2x/Week Duration of treatment (weeks) 6 Plan of Care Start Date 12/01/21 Plan of Care End Date 03/23/22 Next Visit Focus/Plan Next Note Type Treatment Note Next Visit Plan Assess response to last treatment. Continue shoulder ROM and strengthening. Sidelying scapular clocks with emphasis on activation of rhomboids, lower traps, inhibit UT.
--- NOTE | 2022-03-08 14:35 | PT.OTN ---
Current Diagnoses Primary osteoarthritis, right shoulder (03/08/22) Physical Therapy Treatment Note PT-OP-A Visit Information Start: 11/30/21 20:15 Freq: Status: Active Protocol: Document 03/08/22 13:51 NBM (Rec: 03/08/22 14:34 [facility] [id number]) Out-Patient Physical Therapy Visit Information Visit Information Visit Type Treatment Note Visit Start Time 13:48 Visit Stop Time 14:30 Total Visit Minutes 42 Visit Number 23 Number of RESIDENTIAL LEASING MANAGER Visits 1 Precautions Precautions Pacemaker DOS: 10/21 R shld Protocol 6-12 weeks: range of motion unlimited, AROM, elastic cord exercises. Avoid extreme stretching and weight training until after 12 weeks. PT-OP-B Current Condition Start: 11/30/21 20:15 Freq: Status: Active Protocol: Document 12/01/21 10:28 AMB (Rec: 12/01/21 10:42 AMB [id number]) Current Condition History of Current Condition Onset Date 10/21/21 Current Complaints R reverse total shoulder History of Current Condition Pt attends PT after shoulder surgery, did have some pain after quickly moving shoulder while making bed, but otherwise hasn't had much pain . Has been doing pendulums and wrist/hand exercises at home. Saw two days ago and was told he could return to golfing, X-ray was all good . 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 PT-OP-C Subjective Start: 11/30/21 20:15 Freq: Status: Active Protocol: Document 03/08/22 13:51 [facility] (Rec: 03/08/22 14:34 [facility] [id number]) OP-PT Subjective Patient Comments Patient Comments Pt reports he is feeling well and felt good after his last visit. Reaching into his back pocket is an issue but he can do it, but he can't do it thoughtlessly. He can tell it' s better. It's just the last bit of strength. PT-OP-K Range of Motion Start: 11/30/21 20:15 Freq: Status: Active Protocol: Document 12/01/21 10:43 AMB (Rec: 12/01/21 11:22 AMB [id number]) Shoulder Goniometric Range of Motion Shoulder Right Passive Shoulder ROM WFL No Testing Position Supine Flexion 74 Abduction 55 External Rotation at 45 degrees 0 Abduction Internal Rotation 45 Comments IR at 45 abd PT-OP-M Strength Start: 11/30/21 20:15 Freq: Status: Active Protocol: Document 12/01/21 10:30 AMB (Rec: 12/01/21 15:40 AMB [id number]) Shoulder Strength Shoulder Manual Muscle Testing Right Flexion 3 Fair Abduction (C5) 3 Fair External Rotation 3 Fair Internal Rotation 4- Good- PT-OP-Q Treatments Start: 11/30/21 20:15 Freq: Status: Active Protocol: Document 03/08/22 13:51 NBM (Rec: 03/08/22 14:34 [facility] [id number]) Therapeutic Exercises Sidelying Exercises sleeper stretch Side right Reps/Minutes 30 sec Comments vc pain-free ROM abd Side right Reps/Minutes 10 reps Comments cued slow fluid movement, manual upward rotation of scapula by PT Sitting Exercises lat pull down Resistance 10# Reps/Minutes [id number] pully Sitting Exercise Name flex, scaption, abd, IR Side right Resistance AAROM Reps/Minutes 10 ea Comments IR stretch Standing Exercises overhead press Side bilateral Equipment Used 2# Reps/Minutes x8 Comments mirror for cues for scap&vc, dc'd d/t fatigue/form PNF Standing Exercise Name D2 flex, D1 flex Resistance L1 TB Reps/Minutes 10 Manual Therapy Treatment Soft Tissue Mobilization R shoulder Body Location R delt, subscap, pec, bicep, scalenes Mobilization Type Rolling,Strumming,Sustained Pressure,Other Intensity/Depth Moderate Body Position supin Comments w/ rotation Joint Mobilizations SC Joint R Direction AP & inf & sup FM Grade II GH Joint R Direction distraction FM Grade II Self-Care/Home Management Treatment Education Patient Education Home Exercise Program,Posture Other Education Sleeper stretch added to HEP - HO given. PT-OP-R Modalities Start: 11/30/21 20:15 Freq: Status: Active Protocol: Document 02/02/22 08:16 [facility] (Rec: 02/02/22 09:27 [facility] [id number]) Hot Pack/Cold Pack Treatment Cold Pack Location R shoulder Patient Position Hooklying Treatment Duration (minutes) 10 Patient Tolerance Good PT-OP-T Assessment and Plan Start: 11/30/21 20:15 Freq: Status: Active Protocol: Document 03/08/22 13:51 NB (Rec: 03/08/22 14:34 [facility] [id number]) Physical Therapy Assessment Goals Three Impairment Return to activity Short Term Goal (STG) Hernandez will return to all dressing without shoulder pain . 12/15/21: Belt is the only issue because of reaching around back. 02/16/22: now able to do belt but with much effort, starting to be able to put wallet in pocket. Unable to wash back with right UE yet. STG Duration 02/23/22 Intermediate Goal (LTG) Hernandez will play 18 holes of golf without shoulder pain. 02/16/22: goal progress, can now hit a bucket of balls, though reports poor distance, lack of strength LTG Duration 03/23/22 Two Impairment Strength Short Term Goal (STG) Hernandez will lift 10 pounds to chest height without an increase in pain. 02/16/22: goal progress STG Duration 02/23/22 Project Management Instructor Goal (LTG) Hernandez will be independent and consistent with a HEP of stretching and strengthening. 02/16/22: continue to progress HEP. He requires cues to decrease overactivation of UT and demonstrates scapular dyskinesia which is improving with PT, but needs further work. LTG Duration 03/23/22 One Impairment ROM Short Term Goal (STG) Hernandez will improve his R PROM to 90 degrees of flexion. STG Duration goal met Project Management Instructor Goal (LTG) Hernandez will improve his R AROM to 90 degrees of abduction. 02/16/22: goal progress, 83 degrees but with overactivation of UT LTG Duration 03/23/22 Assessment Summary Assessment Pt requires cues for Upper trapezius overactivation and scapular setting with overhead ex's upon fatigue. Palpable tightness to R scalenese and pec improves with manual therapy. Pt requires cues to stay in pain-free range with stretching and improves by end of session. Sleeper stretch added to HEP - HO given. Pt declined cold pack, will ice at home. Physical Therapy Plan Frequency and Duration Frequency of Treatment 2x/Week Duration of treatment (weeks) 6 Plan of Care Start Date 12/01/21 Plan of Care End Date 03/23/22 Therapeutic Interventions Therapeutic Interventions Home Exercise Program,Joint Mobilizations,Manual Therapy, Neuromuscular Re-education, Self-Care/Home Management, Therapeutic Activities, Therapeutic Exercises Modalities Cold Pack/Ice Massage,Hot Packs Next Visit Focus/Plan Next Note Type Treatment Note Next Visit Plan Continue shoulder ROM and strengthening. Sidelying scapular clocks with emphasis on activation of rhomboids, lower traps, inhibit UT.
--- NOTE | 2022-03-10 13:42 | PT.OTN ---
Current Diagnoses Primary osteoarthritis, right shoulder (03/10/22) Physical Therapy Treatment Note PT-OP-A Visit Information Start: 11/30/21 20:15 Freq: Status: Active Protocol: Document 03/10/22 13:00 TS (Rec: 03/10/22 14:01 TS [id number]) Out-Patient Physical Therapy Visit Information Visit Information Visit Type Treatment Note Visit Note SPTA Jean Pierre lead treatment, supervised by FARHANA Stanley. Visit Start Time 13:00 Visit Stop Time 13:42 Total Visit Minutes 42 Visit Number 24 Number of DATABASE DESIGN ANALYST Visits 2 PT-OP-B Current Condition Start: 11/30/21 20:15 Freq: Status: Active Protocol: Document 12/01/21 10:28 AMB (Rec: 12/01/21 10:42 AMB [id number]) Current Condition History of Current Condition Onset Date 10/21/21 Current Complaints R reverse total shoulder History of Current Condition Pt attends PT after shoulder surgery, did have some pain after quickly moving shoulder while making bed, but otherwise hasn't had much pain . Has been doing pendulums and wrist/hand exercises at home. Saw two days ago and was told he could return to golfing, X-ray was all good . 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 PT-OP-C Subjective Start: 11/30/21 20:15 Freq: Status: Active Protocol: Document 03/10/22 13:00 TS (Rec: 03/10/22 14:01 TS [id number]) OP-PT Subjective Patient Comments Patient Comments Pt reports his R shoulder is feeling really good. 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 Internal rotation is still a struggle. PT-OP-K Range of Motion Start: 11/30/21 20:15 Freq: Status: Active Protocol: Document 12/01/21 10:43 AMB (Rec: 12/01/21 11:22 AMB [id number]) Shoulder Goniometric Range of Motion Shoulder Right Passive Shoulder ROM WFL No Testing Position Supine Flexion 74 Abduction 55 External Rotation at 45 degrees 0 Abduction Internal Rotation 45 Comments IR at 45 abd PT-OP-M Strength Start: 11/30/21 20:15 Freq: Status: Active Protocol: Document 12/01/21 10:30 AMB (Rec: 12/01/21 15:40 AMB [id number]) Shoulder Strength Shoulder Manual Muscle Testing Right Flexion 3 Fair Abduction (C5) 3 Fair External Rotation 3 Fair Internal Rotation 4- Good- PT-OP-Q Treatments Start: 11/30/21 20:15 Freq: Status: Active Protocol: Document 03/10/22 13:00 TS (Rec: 03/10/22 14:01 TS [id number]) Therapeutic Exercises Sitting Exercises Scapular Clocks Side right Reps/Minutes 2x10 Comments Cues for scap sequencing, good form Standing Exercises Touchdown Standing Exercise Name FWD Flexion Side bilateral Reps/Minutes 1x10 Comments cues for scap act, good ROM Standing IR with towel Side right Equipment Used towel Reps/Minutes 1x10 10s hold Comments Mirror for feeback 3 Way Shoulders Standing Exercise Name R 2#, L 4# Side bilateral Reps/Minutes 2x6 Comments fatigued quickly Arnold Press Standing Exercise Name Bicep curl to overhead press Side bilateral Reps/Minutes 1x10 Comments Mirror for feeback, good form, lacks ext rotation of R arm at top of press shoulder extension Side bilateral Resistance lvl 2 Reps/Minutes 1x10 Comments Good carryover of scap act ER Side right Resistance L2 Tb Reps/Minutes x10 Comments Good form, cue for no UT recruitment IR Side right Equipment Used L2 Reps/Minutes 10x Comments Good carryover, cue no UT wall walk Standing Exercise Name Lateral sidestepping Side bilateral Equipment Used LVL 1 Reps/Minutes 2x10' Comments Required rest intermediate through 2nd lap PT-OP-R Modalities Start: 11/30/21 20:15 Freq: Status: Active Protocol: Document 02/02/22 08:16 SAK (Rec: 02/02/22 09:27 [facility] [id number]) Hot Pack/Cold Pack Treatment Cold Pack Location R shoulder Patient Position Hooklying Treatment Duration (minutes) 10 Patient Tolerance Good PT-OP-T Assessment and Plan Start: 11/30/21 20:15 Freq: Status: Active Protocol: Document 03/10/22 13:00 TS (Rec: 03/10/22 14:01 TS [id number]) Physical Therapy Assessment Goals Three Impairment Return to activity Short Term Goal (STG) Hernandez will return to all dressing without shoulder pain . 12/15/21: Belt is the only issue because of reaching around back. 02/16/22: now able to do belt but with much effort, starting to be able to put wallet in pocket. Unable to wash back with right UE yet. STG Duration 02/23/22 Detention Goal (LTG) Hernandez will play 18 holes of golf without shoulder pain. 02/16/22: goal progress, can now hit a bucket of balls, though reports poor distance, lack of strength LTG Duration 03/23/22 Two Impairment Strength Short Term Goal (STG) Hernandez will lift 10 pounds to chest height without an increase in pain. 02/16/22: goal progress STG Duration 02/23/22 Detention Goal (LTG) Hernandez will be independent and consistent with a HEP of stretching and strengthening. 02/16/22: continue to progress HEP. He requires cues to decrease overactivation of UT and demonstrates scapular dyskinesia which is improving with PT, but needs further work. LTG Duration 03/23/22 One Impairment ROM Short Term Goal (STG) Hernandez will improve his R PROM to 90 degrees of flexion. STG Duration goal met Detention Goal (LTG) Hernandez will improve his R AROM to 90 degrees of abduction. 02/16/22: goal progress, 83 degrees but with overactivation of UT LTG Duration 03/23/22 Assessment Summary Assessment Pt is tolerating more IR of R shoulder with towel IR stretch . Pt demonstrated decreased ER during arnold press at max shoulder flex. Pt fatigues quickly during [address] shoulder and wall walk ex requiring rest breaks. Mirror provided during exercises for visual feedback of posture and form. 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 Physical Therapy Plan Frequency and Duration Frequency of Treatment 2x/Week Duration of treatment (weeks) 6 Plan of Care Start Date 12/01/21 Plan of Care End Date 03/23/22 Therapeutic Interventions Therapeutic Interventions Home Exercise Program,Joint Mobilizations,Manual Therapy, Neuromuscular Re-education, Self-Care/Home Management, Therapeutic Activities, Therapeutic Exercises Modalities Cold Pack/Ice Massage,Hot Packs Next Visit Focus/Plan Next Note Type Treatment Note Next Visit Plan Assess carryover of scapular clocks, continue wall walk/ touchdowns for improved scap strength. Continue shoulder ROM and strengthening. Sidelying scapular clocks with emphasis on activation of rhomboids, lower traps, inhibit UT.
--- NOTE | 2022-03-16 16:16 | PT.OTN ---
Current Diagnoses Primary osteoarthritis, right shoulder (03/16/22) Physical Therapy Treatment Note PT-OP-A Visit Information Start: 11/30/21 20:15 Freq: Status: Active Protocol: Document 03/16/22 09:01 [facility] (Rec: 03/16/22 09:48 [facility] [id number]) Out-Patient Physical Therapy Visit Information Visit Information Visit Type Treatment Note Visit Start Time 09:00 Visit Stop Time 09:55 Total Visit Minutes 55 Visit Number 25 Number of BINDER LAYER Visits 0 Precautions Precautions Pacemaker DOS: 10/21 R shld Protocol 6-12 weeks: range of motion unlimited, AROM, elastic cord exercises. Avoid extreme stretching and weight training until after 12 weeks. PT-OP-B Current Condition Start: 11/30/21 20:15 Freq: Status: Active Protocol: Document 12/01/21 10:28 AMB (Rec: 12/01/21 10:42 AMB [id number]) Current Condition History of Current Condition Onset Date 10/21/21 Current Complaints R reverse total shoulder History of Current Condition Pt attends PT after shoulder surgery, did have some pain after quickly moving shoulder while making bed, but otherwise hasn't had much pain . Has been doing pendulums and wrist/hand exercises at home. Saw two days ago and was told he could return to golfing, X-ray was all good . 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 Treatment Goals Patient/Caregiver Goals Return golfing, being able to tune piano (needs to be able to lift arms to shoulder height), Personal Factors Other Personal Factors That May Effect R knee pain, Hx [place] (pacemaker) Therapy/Recovery . PT-OP-C Subjective Start: 11/30/21 20:15 Freq: Status: Active Protocol: Document 03/16/22 09:01 [facility] (Rec: 03/16/22 09:48 [facility] [id number]) OP-PT Subjective Patient Comments Patient Comments No new c/o, just did cardiac rehab including some weights, nothing overhead but reports some fatigue. Hasn't been using any weight for overhead exercises at home. PT-OP-K Range of Motion Start: 11/30/21 20:15 Freq: Status: Active Protocol: Document 12/01/21 10:43 AMB (Rec: 12/01/21 11:22 AMB [id number]) Shoulder Goniometric Range of Motion Shoulder Right Passive Shoulder ROM WFL No Testing Position Supine Flexion 74 Abduction 55 External Rotation at 45 degrees 0 Abduction Internal Rotation 45 Comments IR at 45 abd PT-OP-M Strength Start: 11/30/21 20:15 Freq: Status: Active Protocol: Document 12/01/21 10:30 AMB (Rec: 12/01/21 15:40 AMB [id number]) Shoulder Strength Shoulder Manual Muscle Testing Right Flexion 3 Fair Abduction (C5) 3 Fair External Rotation 3 Fair Internal Rotation 4- Good- PT-OP-Q Treatments Start: 11/30/21 20:15 Freq: Status: Active Protocol: Document 03/16/22 09:01 SAK (Rec: 03/16/22 09:48 SAK [id number]) Therapeutic Exercises Supine Exercises shoulder IR,ER Supine Exercise Name AAROM, also gentle contract/ relax for both motions followed by AROM new ROM Equipment Used towel roll Reps/Minutes 10x5 Comments cues for keeping shoulder from rolling forward with IR Sidelying Exercises sleeper stretch Side right Reps/Minutes 30 sec Comments with contract relaxvc pain- free ROM open book Side bilateral Reps/Minutes x5 reps ea Comments cue for deep breath end of motion Sitting Exercises Scapular Clocks Sitting Exercise Name sidelying Side right Reps/Minutes 2x10 Comments Cues for scap sequencing, good form pully Sitting Exercise Name flex, scaption, abd, IR Side right Resistance AAROM Reps/Minutes 10 ea Comments IR stretch Standing Exercises Touchdown Standing Exercise Name FWD Flexion Side bilateral Reps/Minutes 1x10 Comments cues for scap act, good ROM Standing IR with towel Side right Equipment Used NO TOWEL, USED OPP HAND PREF Reps/Minutes 1x10 10s hold Comments Mirror for feeback 3 Way Shoulders Standing Exercise Name R 2#, L 4# Side bilateral Reps/Minutes 1x7 AB, 1X10 FLEX Comments fatigued quickly Arnold Press Standing Exercise Name Bicep curl to overhead press Side bilateral Reps/Minutes 1x10 Comments Mirror for feeback, good form, lacks ext rotation of R arm at top of press shoulder extension Comments HEP ER Comments HEP IR Comments HEP wall walk Standing Exercise Name Lateral sidestepping Side bilateral Equipment Used LVL 1 Reps/Minutes 2x10' Comments Required rest senior care through 2nd lap Manual Therapy Treatment Soft Tissue Mobilization scar massage Mobilization Type Myofascial Release Intensity/Depth Superficial Body Position Supine R shoulder Body Location R delt, subscap, pec, bicep, scalenes Mobilization Type Rolling,Strumming,Sustained Pressure,Other Intensity/Depth Moderate Body Position supin Comments w/ rotation PT-OP-R Modalities Start: 11/30/21 20:15 Freq: Status: Active Protocol: Document 03/16/22 09:01 [facility] (Rec: 03/16/22 16:15 [facility] [id number]) Hot Pack/Cold Pack Treatment Cold Pack Location right shoulder Patient Position Hooklying Treatment Duration (minutes) 3 Patient Tolerance Good Comments ICE MASSAGE PT-OP-T Assessment and Plan Start: 11/30/21 20:15 Freq: Status: Active Protocol: Document 03/16/22 09:01 [facility] (Rec: 03/16/22 09:48 [facility] [id number]) Physical Therapy Assessment Goals Three Impairment Return to activity Short Term Goal (STG) Hernandez will return to all dressing without shoulder pain . 12/15/21: Belt is the only issue because of reaching around back. 02/16/22: now able to do belt but with much effort, starting to be able to put wallet in pocket. Unable to wash back with right UE yet. STG Duration 02/23/22 Long-Term Goal (LTG) Hernandez will play 18 holes of golf without shoulder pain. 02/16/22: goal progress, can now hit a bucket of balls, though reports poor distance, lack of strength LTG Duration 03/23/22 Two Impairment Strength Short Term Goal (STG) Hernandez will lift 10 pounds to chest height without an increase in pain. 02/16/22: goal progress STG Duration 02/23/22 Long-Term Goal (LTG) Hernandez will be independent and consistent with a HEP of stretching and strengthening. 02/16/22: continue to progress HEP. He requires cues to decrease overactivation of UT and demonstrates scapular dyskinesia which is improving with PT, but needs further work. LTG Duration 03/23/22 One Impairment ROM Short Term Goal (STG) Hernandez will improve his R PROM to 90 degrees of flexion. STG Duration goal met Pound Keeper Goal (LTG) Hernandez will improve his R AROM to 90 degrees of abduction. 02/16/22: goal progress, 83 degrees but with overactivation of UT LTG Duration 03/23/22 Assessment Summary Assessment Patient demonstrating improving scapular kinematics. Cont with most difficulty lifting overhead and behind back. Gentle contract relax with sleeper stretch inc ROM. Improved scapular clock. Physical Therapy Plan Frequency and Duration Frequency of Treatment 2x/Week Duration of treatment (weeks) 6 Plan of Care Start Date 12/01/21 Plan of Care End Date 03/23/22 Therapeutic Interventions Therapeutic Interventions Home Exercise Program,Joint Mobilizations,Manual Therapy, Neuromuscular Re-education, Self-Care/Home Management, Therapeutic Activities, Therapeutic Exercises Modalities Cold Pack/Ice Massage,Hot Packs Next Visit Focus/Plan Next Note Type Treatment Note Next Visit Plan Assess if improved compliance with overhead ex HEP. Continue shoulder ROM and strengthing, scar mob. Modalities and manual therapy as indicated. Anticipate discharge to home program in 2 visits, will reassess and discuss.
--- NOTE | 2022-03-19 08:15 | PT.OTN ---
Current Diagnoses Primary osteoarthritis, right shoulder (03/19/22) Physical Therapy Treatment Note PT-OP-A Visit Information Start: 11/30/21 20:15 Freq: Status: Active Protocol: Document 03/19/22 07:32 SP (Rec: 03/19/22 08:19 SP [id number]) Out-Patient Physical Therapy Visit Information Visit Information Visit Type Treatment Note Visit Start Time 07:32 Visit Stop Time 08:15 Total Visit Minutes 43 Visit Number 26 Number of SECURITY SYSTEM ENGINEER Visits 1 PT-OP-B Current Condition Start: 11/30/21 20:15 Freq: Status: Active Protocol: Document 12/01/21 10:28 AMB (Rec: 12/01/21 10:42 AMB [id number]) Current Condition History of Current Condition Onset Date 10/21/21 Current Complaints R reverse total shoulder History of Current Condition Pt attends PT after shoulder surgery, did have some pain after quickly moving shoulder while making bed, but otherwise hasn't had much pain . Has been doing pendulums and wrist/hand exercises at home. Saw two days ago and was told he could return to golfing, X-ray was all good . 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 Treatment Goals Patient/Caregiver Goals Return golfing, being able to tune piano (needs to be able to lift arms to shoulder height), Personal Factors Other Personal Factors That May Effect R knee pain, Hx [place] (pacemaker) Therapy/Recovery . PT-OP-C Subjective Start: 11/30/21 20:15 Freq: Status: Active Protocol: Document 03/19/22 07:32 SP (Rec: 03/19/22 08:19 SP [id number]) OP-PT Subjective Patient Comments Patient Comments Pt reports no concerns, PT-OP-K Range of Motion Start: 11/30/21 20:15 Freq: Status: Active Protocol: Document 03/19/22 07:32 SP (Rec: 03/19/22 08:19 SP [id number]) Shoulder Goniometric Range of Motion Shoulder R shld AROM Shoulder ROM WFL No Testing Position Standing Flexion 132 Abduction 129 External Rotation at 0 degrees Abduction 59 Internal Rotation Behind Back (text) L5 Comments Noted Upper Trap and trunk SB compensations during ABD and IR. Cues and pt awareness trying to do with good form, challenging with limited ROM. Right Passive Shoulder ROM WFL No Testing Position Supine Flexion 146 Abduction 148 External Rotation at 0 degrees Abduction 48 Comments IR at 45 abd AROM supine R shld supine: FF: 146 ABD: 142 ER: 42 PT-OP-M Strength Start: 11/30/21 20:15 Freq: Status: Active Protocol: Document 12/01/21 10:30 AMB (Rec: 12/01/21 15:40 AMB [id number]) Shoulder Strength Shoulder Manual Muscle Testing Right Flexion 3 Fair Abduction (C5) 3 Fair External Rotation 3 Fair Internal Rotation 4- Good- PT-OP-Q Treatments Start: 11/30/21 20:15 Freq: Status: Active Protocol: Document 03/19/22 07:32 SP (Rec: 03/19/22 08:19 SP [id number]) Cardio Equipment Upper Body Ergometer (UBE) Duration (Minutes) 6 RPM 60 Seat Position 13 Height 3 Other 1 min f/b Therapeutic Exercises Standing Exercises Standing IR with towel Side right Equipment Used doorway Reps/Minutes 10 s x10 Comments good form and psoture Y Standing Exercise Name wall lift off Side bilateral Equipment Used AROM Reps/Minutes 3 reps x2 sec hold Comments good form no UT recritment throw into rebounder Standing Exercise Name eccentric throw Side right Resistance Tb#3 Reps/Minutes x5 reps Comments slow for assisted ROM and quick for strengthening. should add/IR Standing Exercise Name IR towel stretch Equipment Used using doorframe Reps/Minutes 10 reps 10 sec hold Comments good form able to increase to L3 shoulder extension Standing Exercise Name reviewed HEP Side bilateral Resistance L 3 Reps/Minutes 2x15 Comments good form. ER Resistance L 2- L3 Reps/Minutes 2x10 Comments good form, aware of no UT recruitment Self-Care/Home Management Treatment Education Patient Education Body Mechanics,Home Exercise Program,Posture Other Education Extra time discussed posture awareness, self STMs theracane /ball wall posterior scap and manual SCM/ Pec stretch to counteract forward posture activities. Good understnaidng and self demo. PT-OP-R Modalities Start: 11/30/21 20:15 Freq: Status: Active Protocol: Document 03/16/22 09:01 SAK (Rec: 03/16/22 16:15 SAK [id number]) Hot Pack/Cold Pack Treatment Cold Pack Location right shoulder Patient Position Hooklying Treatment Duration (minutes) 3 Patient Tolerance Good Comments ICE MASSAGE PT-OP-T Assessment and Plan Start: 11/30/21 20:15 Freq: Status: Active Protocol: Document 03/19/22 07:32 SP (Rec: 03/19/22 08:19 SP [id number]) Physical Therapy Assessment Goals Three Impairment Return to activity Short Term Goal (STG) Hernandez will return to all dressing without shoulder pain . 12/15/21: Belt is the only issue because of reaching around back. 02/16/22: now able to do belt but with much effort, starting to be able to put wallet in pocket. Unable to wash back with right UE yet. 03/19/22: only 1-2/10 pain reaching behind back to lace belt, most difficult ROM. STG Duration 02/23/22 partial met 03/19. Rover Tender Goal (LTG) Hernandez will play 18 holes of golf without shoulder pain. 02/16/22: goal progress, can now hit a bucket of balls, though reports poor distance, lack of strength 03/19/22: able to play 9 holes of golf 2 weeks ago painfree, didn;t have time to play 18 holes. LTG Duration 03/23/22 partial met 03/19/22 Two Impairment Strength Short Term Goal (STG) Hernandez will lift 10 pounds to chest height without an increase in pain. 02/16/22: goal progress STG Duration 02/23/22 GOAL MET 02/16/22 Rover Tender Goal (LTG) Hernandez will be independent and consistent with a HEP of stretching and strengthening. 02/16/22: continue to progress HEP. He requires cues to decrease overactivation of UT and demonstrates scapular dyskinesia which is improving with PT, but needs further work. 03/19/22: LTG Duration 03/23/22 One Impairment ROM Short Term Goal (STG) Hernandez will improve his R PROM to 90 degrees of flexion. STG Duration goal met Rover Tender Goal (LTG) Hernandez will improve his R AROM to 90 degrees of abduction. 02/16/22: goal progress, 83 degrees but with overactivation of UT 03/19/22: GOAL MET: standing 129 deg ABD, little compensations. LTG Duration 03/23/22 GOAL MET Progress Towards Goals Progress Towards Goals Progressing Toward Goals Progress Comments See measurements taken. Making progress, very low pain with activities. R shld IR is most limiting for ADLs Assessment Summary Assessment Pt improved in form, good initial condense standing HEP. WIll bring papers next tx to continue to condense HEP and DC after next appt. Made tremendus gains in AROM and very pleased with functional mobiltiy. Physical Therapy Plan Frequency and Duration Frequency of Treatment 2x/Week Duration of treatment (weeks) 6 Plan of Care Start Date 12/01/21 Plan of Care End Date 03/23/22 Therapeutic Interventions Therapeutic Interventions Home Exercise Program,Joint Mobilizations,Manual Therapy, Neuromuscular Re-education, Self-Care/Home Management, Therapeutic Activities, Therapeutic Exercises Modalities Cold Pack/Ice Massage,Hot Packs Next Visit Focus/Plan Next Note Type Treatment Note Next Visit Plan Assess if improved compliance with overhead ex HEP. Continue shoulder ROM and strengthing, scar mob. Modalities and manual therapy as indicated. Anticipate discharge to home program in 2 visits, will reassess and discuss.
--- NOTE | 2022-03-23 09:39 | PT.OTN ---
Current Diagnoses Primary osteoarthritis, right shoulder (03/23/22) Physical Therapy Treatment Note PT-OP-A Visit Information Start: 11/30/21 20:15 Freq: Status: Active Protocol: Document 03/23/22 08:38 AMB (Rec: 03/23/22 09:39 AMB [id number]) Out-Patient Physical Therapy Visit Information Visit Information Visit Type Treatment Note Visit Start Time 08:15 Visit Stop Time 09:00 Total Visit Minutes 45 Visit Number 27 PT-OP-B Current Condition Start: 11/30/21 20:15 Freq: Status: Active Protocol: Document 12/01/21 10:28 AMB (Rec: 12/01/21 10:42 AMB [id number]) Current Condition History of Current Condition Onset Date 10/21/21 Current Complaints R reverse total shoulder History of Current Condition Pt attends PT after shoulder surgery, did have some pain after quickly moving shoulder while making bed, but otherwise hasn't had much pain . Has been doing pendulums and wrist/hand exercises at home. Saw two days ago and was told he could return to golfing, X-ray was all good . 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 Treatment Goals Patient/Caregiver Goals Return golfing, being able to tune piano (needs to be able to lift arms to shoulder height), Personal Factors Other Personal Factors That May Effect R knee pain, Hx [place] (pacemaker) Therapy/Recovery . PT-OP-C Subjective Start: 11/30/21 20:15 Freq: Status: Active Protocol: Document 03/23/22 08:38 AMB (Rec: 03/23/22 09:39 AMB [id number]) OP-PT Subjective Patient Comments Patient Comments Hernandez is ready for discharge. Still challenged by overhead reach and internal rotation behind his back to get a jacket or vest on and off. PT-OP-K Range of Motion Start: 11/30/21 20:15 Freq: Status: Active Protocol: Document 03/19/22 07:32 SP (Rec: 03/19/22 08:19 SP [id number]) Shoulder Goniometric Range of Motion Shoulder R shld AROM Shoulder ROM WFL No Testing Position Standing Flexion 132 Abduction 129 External Rotation at 0 degrees Abduction 59 Internal Rotation Behind Back (text) L5 Comments Noted Upper Trap and trunk SB compensations during ABD and IR. Cues and pt awareness trying to do with good form, challenging with limited ROM. Right Passive Shoulder ROM WFL No Testing Position Supine Flexion 146 Abduction 148 External Rotation at 0 degrees Abduction 48 Comments IR at 45 abd AROM supine R shld supine: FF: 146 ABD: 142 ER: 42 PT-OP-M Strength Start: 11/30/21 20:15 Freq: Status: Active Protocol: Document 12/01/21 10:30 AMB (Rec: 12/01/21 15:40 AMB [id number]) Shoulder Strength Shoulder Manual Muscle Testing Right Flexion 3 Fair Abduction (C5) 3 Fair External Rotation 3 Fair Internal Rotation 4- Good- PT-OP-Q Treatments Start: 11/30/21 20:15 Freq: Status: Active Protocol: Document 03/23/22 08:38 AMB (Rec: 03/23/22 09:39 AMB [id number]) Therapeutic Exercises Sidelying Exercises sleeper stretch Side right Reps/Minutes 30 sec Comments with contract relaxvc pain- free ROM Standing Exercises Y Standing Exercise Name wall lift off Side bilateral Equipment Used AROM Reps/Minutes 3 reps x2 sec hold Comments good form no UT recritment posterior capsule stretch Side right Reps/Minutes 30 sec Comments back to wall to pin scap shoulder extension Standing Exercise Name reviewed HEP Side bilateral Resistance L 3 Reps/Minutes 2x15 Comments good form. ER Resistance L 2- L3 Reps/Minutes 2x10 Comments good form, aware of no UT recruitment IR Comments HEP t band rows Side bilateral Resistance Lvl2 Tb Reps/Minutes x10, 10x 5SH PT-OP-R Modalities Start: 11/30/21 20:15 Freq: Status: Active Protocol: Document 03/16/22 09:01 SAK (Rec: 03/16/22 16:15 SAK [id number]) Hot Pack/Cold Pack Treatment Cold Pack Location right shoulder Patient Position Hooklying Treatment Duration (minutes) 3 Patient Tolerance Good Comments ICE MASSAGE PT-OP-T Assessment and Plan Start: 11/30/21 20:15 Freq: Status: Active Protocol: Document 03/23/22 08:38 AMB (Rec: 03/23/22 09:39 AMB [id number]) Physical Therapy Assessment Goals Three Impairment Return to activity Short Term Goal (STG) Hernandez will return to all dressing without shoulder pain . 03/19/22: only 1-2/10 pain reaching behind back to lace belt, most difficult ROM. STG Duration partial met 03/19. Usp Goal (LTG) Hernandez will play 18 holes of golf without shoulder pain. 03/19/22: able to play 9 holes of golf 2 weeks ago painfree, didn;t have time to play 18 holes. LTG Duration partial met 03/19/22 Two Impairment Strength Short Term Goal (STG) Hernandez will lift 10 pounds to chest height without an increase in pain. STG Duration GOAL MET 02/16/22 Usp Goal (LTG) Hernandez will be independent and consistent with a HEP of stretching and strengthening. LTG Duration GOAL MET One Impairment ROM Short Term Goal (STG) Hernandez will improve his R PROM to 90 degrees of flexion. STG Duration goal met Grain Farmworker Goal (LTG) Hernandez will improve his R AROM to 90 degrees of abduction. LTG Duration 03/23/22 GOAL MET Assessment Summary Assessment Pt shows good form with most exercises, is still struggling with reaching behind back to don belt/pull pants up. Also struggles with lifting plates overhead if they are heavy, otherwise feels good. Encouraged to continue HEP in the long run to work on these continued impairments, but pt feels ready for discharge at this point. Physical Therapy Plan Discharge Physical Therapy Discharge Reasons Goals Met
== END 2022-03-29 11:57 | disposition home or self-care (01) ==
LOC: PHYS 08:15
PROVIDERS: Family Provider Family Medicine; PCP Family Medicine; Referring Provider Orthopaedic Surgery; Visit Provider Orthopaedic Surgery
DX: M19.011 Primary osteoarthritis, right shoulder (principal)
CPT/HCPCS: 97010; 97110; 97140; 97161; 97535

== ENCOUNTER → 2022-05-31 14:43 | Outpatient (CLI) | payer OTHER, SELFPAY ==
[2021-10-21 12:45] VITALS: BMI 29.4
[2022-05-31 16:09] LABS: Alanine Aminotransferase 30 IU/L (<50); Albumin 4.6 g/dL (3.5-5.0); Albumin Globulin Ratio 1.5 (1.0-2.8); Alkaline Phosphatase 51 U/L (38-126); Aspartate Aminotransferase 29 IU/L (17-59); BUN Creatinine Ratio 19.8 (6-22); Bilirubin Total 0.5 mg/dL (0.2-1.3); Blood Urea Nitrogen 19 mg/dL (9-20); Calcium 8.9 mg/dL (8.4-10.2); Carbon Dioxide 30 mmol/L (22-32); Chloride 102 mmol/L (98-107); Estimated Glomerular Filt Rate > 60 mL/min (>60); Glucose 110 mg/dL (80-110); HEMOLYSIS < 15 (0-50); Potassium 4.1 mmol/L (3.4-5.1); Sodium 141 mmol/L (137-145); Total Protein 7.6 g/dL (6.3-8.2)
[2022-05-31 17:08] LABS: TSH w/ Reflex to FT4 1.46 uIU/mL (0.47-4.68)
[2022-05-31 22:56] LABS: Magnesium 2.1 mg/dL (1.6-2.3)
== END ==
PROVIDERS: Family Provider Family Medicine; PCP Family Medicine; Referring Provider Nurse Practitioner Family; Visit Provider Nurse Practitioner Family
DX: I48.0 Paroxysmal atrial fibrillation (principal); I25.5 Ischemic cardiomyopathy; I47.20 Ventricular tachycardia, unspecified
CPT/HCPCS: 36415; 80053; 83735; 84443

== ENCOUNTER 2022-08-13 06:26 | Emergency (ER) | payer OTHER, SELFPAY ==
[2021-10-21 12:45] VITALS: BMI 29.4
[2022-08-13] VITALS (8 sets, daily range): BP systolic 93–102; BP diastolic 55–59; PULSE 51–59; RESP 13–24; TEMP 36.3; O2SAT 94–97; BMI 28.7
--- NOTE | 2022-08-13 06:51 | DI.RAD.S_ITS ---
PROCEDURE: XR CHEST 1V INDICATIONS: chest pain TECHNIQUE: One view of the chest was acquired. COMPARISON: [facility], CR, XR CHEST 2V, 03/19/2019, 8:35. FINDINGS: Surgical changes and devices: There is a cardiac pacemaker in appropriate position. Lungs and pleura: Lungs are clear. No pleural effusions or pneumothorax. Mediastinum: Mediastinal contours appear normal. Heart size is normal. Bones and chest wall: No suspicious bony lesions. Overlying soft tissues appear unremarkable. Right shoulder arthroplasty. IMPRESSION: No acute cardiopulmonary disease. No significant discrepancy with the second shift supervisor radiology preliminary report. Dictated by: Renato Mendez M.D. on 08/13/2022 at 8:05 Approved by: Renato Mendez M.D. on 08/13/2022 at 8:05
[2022-08-13 06:58] LABS: Add Manual Diff / Slide Review NO; Basophils Absolute Auto 100 /uL (0-100); Basophils Percent Auto 1.5 % (0-2); Eosinophils Absolute Auto 400 /uL (0-450); Hematocrit 41.3 % (41-53); Hemoglobin 13.8 g/dL (13.5-17.5); Lymphocytes Absolute Auto 1000 /uL (1100-4500); Lymphocytes Percent Auto 14.8 % (25-40); Mean Corpuscular HGB Conc 33.5 % (30-36); Mean Corpuscular Hemoglobin 31.7 PG (26-34); Mean Corpuscular Volume 94.7 fL (80-100); Monocytes Absolute Auto 600 /uL (0-900); Monocytes Percent Auto 9.3 % (3-14); Neutrophils Absolute Auto 4500 /uL (1500-7000); Neutrophils Percent Auto 68.4 % (50-75); Platelet Count 220 X10^3/uL (150-400); Red Blood Cell Count 4.36 X10^6/uL (4.5-5.9); Red Cell Distribution Width 13.4 % (11.6-14.8); White Blood Cell Count 6.6 X10^3/uL (4.5-11.0)
[2022-08-13 07:06] LABS: INR 1.3 (0.9-1.3); Prothrombin Time 14.7 SECONDS (10.1-12.7)
[2022-08-13 07:09] LABS: PTT Partial Thromboplastin Tim 50 SECONDS (26-36)
[2022-08-13 07:10] LABS: Alanine Aminotransferase 27 IU/L (<50); Albumin 4.4 g/dL (3.5-5.0); Albumin Globulin Ratio 1.5 (1.0-2.8); Alkaline Phosphatase 58 U/L (38-126); Aspartate Aminotransferase 28 IU/L (17-59); BUN Creatinine Ratio 20.5 (6-22); Bilirubin Total 0.6 mg/dL (0.2-1.3); Blood Urea Nitrogen 18 mg/dL (9-20); Calcium 8.5 mg/dL (8.4-10.2); Carbon Dioxide 23 mmol/L (22-32); Chloride 107 mmol/L (98-107); Creatine Kinase 162 U/L (55-170); Estimated Glomerular Filt Rate > 60 mL/min (>60); Glucose 115 mg/dL (80-110); HEMOLYSIS 28 (0-50); Lipase 137 U/L (23-300); Magnesium 2.1 mg/dL (1.6-2.3); Sodium 138 mmol/L (137-145); Total Protein 7.4 g/dL (6.3-8.2)
[2022-08-13 07:22] LABS: Troponin I < 0.012 ng/mL (0.01-0.034)
[2022-08-13 07:26] LABS: CKMB % Relative Index 0.8 % (1.5-5.0); Creatine Kinase MB 1.26 ng/mL (<2.37)
--- NOTE | 2022-08-13 07:47 | ED_ITS ---
HPI - Arrhythmia/Palpitations General Chief Complaint: Arrhythmia/Palpitations Stated Complaint: Defibilator went off. Time Seen by Provider: 08/13/22 06:46 Source: patient and family Mode of arrival: EMS Limitations: no limitations History of Present Illness HPI narrative: Patient is a 72-year-old male. Does have a pacemaker/defibrillator in place. He states that this morning he woke up feeling like he was having pulsatile tinnitus in his right ear. He has had this in the past. He went to the kitchen and took his blood pressure. Had a systolic blood pressure in the 160s. He then started to feel some chest pressure and some palpitations. They contacted EMS. While EMS was there he felt like his symptoms were getting somewhat worse and then he felt his defibrillator go off. He currently has no symptoms. He states he feels ?normal? he is no chest pain and no shortness of breath. He states this has potentially the 2nd time his defibrillator went off. He states that the 1st time was approximately 1-2 months ago. He would just come home from a walk and then passed out. He stated that he did follow-up with his scientific helper afterwards. He stated that they increased his Mexiletine which is his antiarrhythmic medication. Related Data Home Medications Medication Instructions Recorded Confirmed atorvastatin 80 mg tablet 80 mg PO BEDTIME ##0 01/31/09 07/17/22 alfuzosin 10 mg tablet,extended 10 mg PO DAILY 08/25/21 07/17/22 release 24 hr dabigatran etexilate 150 mg 150 mg PO BID 08/25/21 07/17/22 capsule (Pradaxa) spironolactone 25 mg tablet 12.5 mg PO DAILY 08/25/21 07/17/22 empagliflozin 10 mg tablet 10 mg PO DAILY 07/15/22 07/17/22 (Jardiance) metoprolol succinate 100 mg 100 mg PO DAILY 07/15/22 07/17/22 tablet,extended release 24 hr mexiletine 150 mg capsule 300 mg PO TID 07/15/22 07/17/22 sacubitril 24 mg-valsartan 26 mg 1 tab PO BID 07/15/22 07/17/22 tablet (Entresto) venlafaxine 75 mg capsule,extended 75 mg PO BEDTIME 07/15/22 07/17/22 release 24 hr Previous Rx's Medication Instructions Recorded acetaminophen 325 mg tablet 650 mg PO Q6HR #60 tabs 10/22/21 doxycycline hyclate 100 mg capsule 200 mg PO ONCE #2 caps 07/17/22 amiodarone 200 mg tablet 200 mg PO DAILY #60 tabs 08/13/22 Allergies Allergy/AdvReac Type Severity Reaction Status Date / Time No Known Drug Allergies Allergy Verified 07/17/22 11:03 Review of Systems Review of Systems ROS Unobtainable: All systems reviewed & are unremarkable except as noted in HPI and below Patient History Medical History Anxiety Back pain Benign essential tremor BPH w urinary obs/LUTS CAD (coronary artery disease) Chronic anticoagulation Chronic low back pain Depression Esophageal reflux Essential hypertension History of cardioversion History of ventricular fibrillation HLD (hyperlipidemia) HTN (hypertension) Ischemic cardiomyopathy Mitral valve insufficiency Mixed hyperlipidemia MAR (obstructive sleep apnea) Osteoarthritis Pacemaker (09/01/15) Paroxysmal A-fib Primary osteoarthritis involving multiple joints Systolic CHF, chronic Vasculogenic erectile dysfunction Surgical History H/O vasectomy History of cardiac cath History of cardiac radiofrequency ablation Hx of bilateral cataract extraction Hx of heart artery stent (2002) Hx of heart artery stent (1997) Hx of tonsillectomy Status post epidural steroid injection 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), 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, 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: spouse Smoking Status: Former smoker alcohol intake: current Smoking Status: Former smoker alcohol intake frequency: 0-2 drinks per day Substance Use Type: does not use Exam Initial Vital Signs Initial Vital Signs: Vital Signs Temperature 97.3 F L 08/13/22 06:30 Pulse Rate 53 L 08/13/22 06:30 Respiratory Rate 17 08/13/22 06:30 Blood Pressure 102/55 L 08/13/22 06:30 Pulse Oximetry 94 08/13/22 06:30 Oxygen Delivery Method Room Air 08/13/22 06:30 Const General: cooperative, comfortable and No ill appearing HENMT Head: normal to inspection and normocephalic Resp Effort & Inspection: normal respiratory effort Auscultation: clear to auscultation bilaterally Cardio Rate: regular rate Rhythm: regular rhythm GI Inspection: normal to inspection Skin General: no rashes or lesions noted Neuro General: patient alert, patient awake and moves all extremities Extrem General: normal to inspection and capillary refill normal Course Orders Ordered: ED Orders 08/13/22 EKG-12 Lead Routine 08/13/22 06:50 Complete Blood Count AUTO DIFF Stat Comprehensive Metabolic Panel Stat Lipase Stat Magnesium Stat PTT Partial Thromboplastin Marty Stat Prothrombin Time INR Stat Troponin & CK Cardiac Panel Stat 08/13/22 06:51 XR chest 1V Stat COVID19 -Nasal RAPID Stat EKG-12 Lead Stat Discontinued Medications Aspirin (Aspirin 81 Mg Chew Tab) 324 mg PO NOW ONE Stop: 08/13/22 06:52 Last Admin: 08/13/22 08:31 Dose: Not Given Vital Signs Vital signs: Vital Signs - 8 hr 08/13/22 06:30 08/13/22 06:38 08/13/22 06:45 Temperature 97.3 F L Pulse Rate 53 L 53 L 59 L Respiratory Rate 17 13 17 Blood Pressure 102/55 L Pulse Oximetry 94 96 96 Oxygen Delivery Method Room Air 08/13/22 06:45 08/13/22 07:00 08/13/22 07:00 Temperature Pulse Rate 55 L Respiratory Rate Blood Pressure 93/55 L 98/59 L Pulse Oximetry 96 Oxygen Delivery Method 08/13/22 07:30 08/13/22 08:00 08/13/22 08:30 Temperature Pulse Rate 56 L 57 L 52 L Respiratory Rate 17 24 16 Blood Pressure Pulse Oximetry 95 95 97 Oxygen Delivery Method MDM - Arrhythmia/Palpitations Lab Data Attestation: I reviewed the patient's lab results. 08/13/22 06:50 08/13/22 06:50 Labs: Lab Results 08/13/22 08/13/22 08/13/22 Range/Units 06:50 06:50 06:50 WBC 6.6 (4.5-11.0) X10^3/uL RBC 4.36 L (4.5-5.9) X10^6/uL Hgb 13.8 (13.5-17.5) g/dL Hct 41.3 (41-53) % MCV 94.7 (80-100) fL MCH 31.7 (26-34) PG MCHC 33.5 (30-36) % RDW 13.4 (11.6-14.8) % Plt Count 220 (150-400) X10^3/uL Neut % (Auto) 68.4 (50-75) % Lymph % (Auto) 14.8 L (25-40) % Greenlee % (Auto) 9.3 (3-14) % Eos % (Auto) 6.0 H (2-4) % Baso % (Auto) 1.5 (0-2) % Neut # (Auto) 4500 (9380-6314) /uL Lymph # (Auto) 1000 L (3025-0273) /uL Greenlee # (Auto) 600 (0-900) /uL Eos # (Auto) 400 (0-450) /uL Baso # (Auto) 100 (0-100) /uL PT 14.7 H (10.1-12.7) SECONDS INR 1.3 (0.9-1.3) APTT 50 H (26-36) SECONDS Sodium 138 (137-145) mmol/L Potassium 4.0 (3.4-5.1) mmol/L Chloride 107 (98-107) mmol/L Carbon Dioxide 23 (22-32) mmol/L BUN 18 (9-20) mg/dL Creatinine 0.88 (0.66-1.25) mg/dL Estimated GFR > 60 (>60) mL/min BUN/Creatinine Ratio 20.5 (6-22) Glucose 115 H (80-110) mg/dL Calcium 8.5 (8.4-10.2) mg/dL Magnesium 2.1 (1.6-2.3) mg/dL Total Bilirubin 0.6 (0.2-1.3) mg/dL AST 28 (17-59) IU/L ALT 27 (<50) IU/L Alkaline Phosphatase 58 (38-126) U/L Total Creatine Kinase 162 (55-170) U/L CK-MB (CK-2) 1.26 (<2.37) ng/mL CK-MB (CK-2) Rel Index 0.8 L (1.5-5.0) % Troponin I < 0.012 (0.01-0.034) ng/mL Total Protein 7.4 (6.3-8.2) g/dL Albumin 4.4 (3.5-5.0) g/dL Globulin 3.0 (1.7-4.1) g/dL Albumin/Globulin Ratio 1.5 (1.0-2.8) Lipase 137 (23-300) U/L Imaging Data Chest x-ray: Radiologist's Impresson: PROCEDURE:? XR CHEST 1V ? INDICATIONS:? chest pain ? TECHNIQUE:? One view of the chest was acquired.? ? COMPARISON:? [facility], CR, XR CHEST 2V, 03/19/2019, 8:35. ? FINDINGS:? ? Surgical changes and devices:? There is a cardiac pacemaker in appropriate position.? ? Lungs and pleura:? Lungs are clear.? No pleural effusions or pneumothorax.? ? Mediastinum:? Mediastinal contours appear normal.? Heart size is normal.? ? Bones and chest wall:? No suspicious bony lesions.? Overlying soft tissues appear unremarkable.? Right shoulder arthroplasty. ? IMPRESSION:? No acute cardiopulmonary disease. ? No significant discrepancy with the shift leader radiology preliminary report. ECG Data Attestation: I personally reviewed and interpreted this ECG as follows: Interpretation: Atrially paced Ventricular rate of 54 QRS [address] T wave changes Repeat EKG Sinus bradycardia Ventricular rate of 56 QRS 136 milliseconds QTC [address] T wave changes MDM Narrative Medical decision making narrative: Patient's defibrillator did fire this morning. We were able to interrogate his [employer] pacemaker. It appeared that at 0550 this morning he had an episode of atrial fibrillation that went into ventricular tachycardia. He then was defibrillated appropriately. The threshold rate was 166. Patient currently is asymptomatic. His magnesium and potassium are unremarkable. I did discuss the case with Dr. Pozo on-call for the patient's scientific helper who recommended that we start the patient on amiodarone. I did discuss this with the patient. A prescription was sent to the pharmacy of his choice. He should contact his service support representative office on Tuesday for follow-up. Patient was given return pr ecautions. He expressed understanding and agreement. Discharge Plan Departure Patient Disposition: Home Clinical Impression: Ventricular fibrillation, Defibrillator discharge Instructions: Arrhythmias Activity Restrictions/Additional Instructions: I did discuss the case with your cardiology group who recommended that we put you on a medicine called amiodarone. A prescription was sent to [facility]. The instructions are to take 2 tablets at breakfast and 2 tablets at lunch for 7 days. Then take 2 tablets just at breakfast for 7 days and then take 1 tablet at a afterwards. I also recommend that you contact your scientific helper's office on Tuesday for follow-up. Continue the rest of your medications as directed. Return to the emergency department for new symptoms. Prescriptions: New amiodarone 200 mg tablet 200 mg PO DAILY Qty: 60 2RF Rx Instructions: 2T at breakfast and 2T at lunch for 7 days then 2T a breakfast for 7 days then 1 tab a day afterward No Action doxycycline hyclate 100 mg capsule 200 mg PO ONCE Qty: 2 0RF atorvastatin 80 mg Tablet 80 mg PO BEDTIME Qty: 0 mexiletine 150 mg capsule 300 mg PO TID Jardiance 10 mg tablet 10 mg PO DAILY Entresto 24-26 mg tablet 1 tab PO BID metoprolol succinate 100 mg tablet extended release 24 hr 100 mg PO DAILY venlafaxine 75 mg capsule,extended release 24hr 75 mg PO BEDTIME spironolactone 25 mg Tablet 12.5 mg PO DAILY alfuzosin 10 mg Tablet Extended Release 24 Hr 10 mg PO DAILY Rx Instructions: administer after the same meal each day Pradaxa 150 mg Capsule 150 mg PO BID acetaminophen 325 mg Tablet 650 mg PO Q6HR Qty: 60 0RF Referrals: González Lopez MD [Primary Care Provider] - Stand Alone Forms: Patient Portal/API
--- NOTE | 2022-08-13 08:51 | PC.NURSE ---
report given by shift engineer, pt was having some chest discomfort, EMS reports small bouts of VT/VF. when starting IV, poke from needle made pt going into VF, his difibrilator discharged and pt was then in normal sinus rhythm.
== END 2022-08-13 08:55 | disposition home or self-care (01) ==
PROVIDERS: Emergency Medicine; Emergency Provider Emergency Medicine; Family Provider Family Medicine; PCP Internal Medicine
DX: I49.01 Ventricular fibrillation (principal); R00.2 Palpitations; Z45.02 Encounter for adjustment and management of automatic implantable cardiac defibrillator; Z79.899 Other long term (current) drug therapy
CPT/HCPCS: 36415; 71045; 80053; 82550; 82553; 83690; 83735; 84484; 85025; 85610; 85730; 93005; 99283; 99284

== ENCOUNTER → 2022-09-03 12:09 | Outpatient (CLI) | payer OTHER, SELFPAY ==
[2022-08-18 11:11] VITALS: BMI 29.4
--- NOTE | 2022-09-08 10:15 | PM.PFT.1 ---
Pulmonary Function Test Referral & Results Date Patient Seen: 09/03/22 Results: The spirometry demonstrates an FVC of 3.49 L which is 81% of predicted. The FEV1 was measured at 2.05 L which is 65% of predicted. The FEV1/FVC ratio was 59 which is 80% of predicted. Following the administration of bronchodilator there was a 14% improvement in FEV1 and a 20% improvement in FEF 25-75%. Lung volumes show an SVC of 4.17 L which is 92% of predicted. The diffusing capacity was measured at 26.85 which is 83% of predicted. The maximum voluntary ventilation was reduced Interpretation: This study demonstrates moderate obstructive lung disease based on reduction FEV1 and FEV1/FVC ratio. There is evidence of benefit following bronchodilator as noted above in both FEV1 and FEF 25-75% Lung volumes and diffusing capacity are probably normal Clinical correlation suggested
== END ==
PROVIDERS: Family Provider Family Medicine; PCP Internal Medicine; Referring Provider Internal Medicine; Visit Provider Internal Medicine
DX: R06.02 Shortness of breath (principal); Z87.891 Personal history of nicotine dependence; J98.8 Other specified respiratory disorders
CPT/HCPCS: 94060; 94726; 94729

== ENCOUNTER → 2022-09-13 13:42 | Outpatient (CLI) | payer OTHER, SELFPAY ==
[2022-08-18 11:11] VITALS: BMI 29.4
[2022-09-14 14:39] LABS: Free T4, Direct Thyroxine 1.14 ng/dL (0.78-2.19)
== END ==
PROVIDERS: Family Provider Family Medicine; PCP Internal Medicine; Referring Provider Nurse Practitioner; Visit Provider Nurse Practitioner
DX: Z79.899 Other long term (current) drug therapy (principal)
CPT/HCPCS: 36415; 84439; 84443; 84481

== ENCOUNTER → 2022-09-30 10:33 | Outpatient (CLI) | payer OTHER, SELFPAY ==
[2022-08-18 11:11] VITALS: BMI 29.4
[2022-09-30 11:55] LABS: Hematocrit 32.4 % (41-53); Hemoglobin 10.8 g/dL (13.5-17.5); Mean Corpuscular HGB Conc 33.5 % (30-36); Mean Corpuscular Hemoglobin 32.3 PG (26-34); Mean Corpuscular Volume 96.5 fL (80-100); Platelet Count 336 X10^3/uL (150-400); Red Blood Cell Count 3.35 X10^6/uL (4.5-5.9); Red Cell Distribution Width 13.7 % (11.6-14.8)
[2022-09-30 12:23] LABS: Alanine Aminotransferase 135 IU/L (<50); Albumin 3.9 g/dL (3.5-5.0); Albumin Globulin Ratio 1.2 (1.0-2.8); Alkaline Phosphatase 72 U/L (38-126); Aspartate Aminotransferase 43 IU/L (17-59); BUN Creatinine Ratio 16.8 (6-22); Bilirubin Total 0.7 mg/dL (0.2-1.3); Blood Urea Nitrogen 16 mg/dL (9-20); Calcium 8.9 mg/dL (8.4-10.2); Carbon Dioxide 27 mmol/L (22-32); Chloride 101 mmol/L (98-107); Cholesterol 171 mg/dL (140-199); Estimated Glomerular Filt Rate > 60 mL/min (>60); Globulin 3.3 g/dL (1.7-4.1); Glucose 95 mg/dL (80-110); HDL Cholesterol 44 mg/dL (40-60); HEMOLYSIS < 15 (0-50); LDL Cholesterol Calculated 108 mg/dL (<100); Magnesium 1.7 mg/dL (1.6-2.3); Potassium 4.5 mmol/L (3.4-5.1); Sodium 137 mmol/L (137-145); Total Protein 7.2 g/dL (6.3-8.2); Triglycerides 93 mg/dL (35-150)
== END ==
PROVIDERS: Family Provider Family Medicine; PCP Internal Medicine; Referring Provider Internal Medicine; Visit Provider Internal Medicine
DX: E78.2 Mixed hyperlipidemia (principal); I25.10 Atherosclerotic heart disease of native coronary artery without angina pectoris; I47.20 Ventricular tachycardia, unspecified; Z86.79 Personal history of other diseases of the circulatory system
CPT/HCPCS: 36415; 80053; 80061; 83735; 85027

== ENCOUNTER → 2022-10-08 15:33 | Outpatient (CLI) | payer OTHER, SELFPAY ==
[2022-08-18 11:11] VITALS: BMI 29.4
[2022-10-08 16:42] LABS: Hematocrit 38.8 % (41-53); Hemoglobin 13.1 g/dL (13.5-17.5); Mean Corpuscular HGB Conc 33.7 % (30-36); Mean Corpuscular Hemoglobin 32.3 PG (26-34); Mean Corpuscular Volume 95.8 fL (80-100); Platelet Count 244 X10^3/uL (150-400); Red Blood Cell Count 4.05 X10^6/uL (4.5-5.9); Red Cell Distribution Width 14.3 % (11.6-14.8); White Blood Cell Count 5.2 X10^3/uL (4.5-11.0)
[2022-10-08 16:47] LABS: BUN Creatinine Ratio 20.5 (6-22); Blood Urea Nitrogen 27 mg/dL (9-20); Calcium 9.2 mg/dL (8.4-10.2); Carbon Dioxide 25 mmol/L (22-32); Chloride 98 mmol/L (98-107); Estimated Glomerular Filt Rate 57 mL/min (>60); Glucose 117 mg/dL (80-110); HEMOLYSIS 15 (0-50); Potassium 4.2 mmol/L (3.4-5.1); Sodium 137 mmol/L (137-145)
== END ==
PROVIDERS: Family Provider Family Medicine; PCP Internal Medicine; Referring Provider Internal Medicine; Visit Provider Internal Medicine
DX: I95.9 Hypotension, unspecified (principal)
CPT/HCPCS: 36415; 80048; 85027

== ENCOUNTER → 2022-12-27 12:39 | Outpatient (CLI) | payer OTHER, SELFPAY ==
[2022-08-18 11:11] VITALS: BMI 29.4
[2022-12-27 13:37] LABS: Hematocrit 41.5 % (41-53); Hemoglobin 13.7 g/dL (13.5-17.5); Mean Corpuscular Hemoglobin 31.1 PG (26-34); Mean Corpuscular Volume 94.2 fL (80-100); Platelet Count 246 X10^3/uL (150-400); Red Blood Cell Count 4.41 X10^6/uL (4.5-5.9); Red Cell Distribution Width 14.1 % (11.6-14.8); White Blood Cell Count 5.9 X10^3/uL (4.5-11.0)
[2022-12-27 13:54] LABS: Blood Urea Nitrogen 20 mg/dL (9-20); Calcium 9.1 mg/dL (8.4-10.2); Carbon Dioxide 28 mmol/L (22-32); Chloride 103 mmol/L (98-107); Estimated Glomerular Filt Rate > 60 mL/min (>60); Glucose 99 mg/dL (80-110); HEMOLYSIS 16 (0-50); Potassium 4.6 mmol/L (3.4-5.1); Sodium 139 mmol/L (137-145)
== END ==
PROVIDERS: Family Provider Family Medicine; PCP Internal Medicine; Referring Provider Internal Medicine; Visit Provider Internal Medicine
DX: R53.1 Weakness (principal); I47.20 Ventricular tachycardia, unspecified
CPT/HCPCS: 36415; 80048; 85027

== ENCOUNTER 2023-04-07 08:08 | Emergency (ER) | payer OTHER, SELFPAY ==
[2022-08-18 11:11] VITALS: BMI 29.4
[2023-04-07] VITALS (13 sets, daily range): BP systolic 103–124; BP diastolic 57–82; PULSE 49–112; RESP 14–21; TEMP 36.4–36.9; O2SAT 95–99; BMI 27.8
--- NOTE | 2023-04-07 08:21 | DI.RAD.S_ITS ---
PROCEDURE: XR CHEST 1V INDICATIONS: tachycardia TECHNIQUE: One view of the chest was acquired. COMPARISON: [facility], CR, XR CHEST 1V, 08/13/2022, 6:49. [facility], CR, XR CHEST 2V, 03/19/2019, 8:35. FINDINGS: Surgical changes and devices: Left chest wall pacemaker. Partially visualized right shoulder arthroplasty. Lungs and pleura: Left pleural effusion versus consolidation. Mediastinum: Mediastinal contours appear normal. Heart size is normal. Bones and chest wall: No suspicious bony lesions. Degenerative changes. Overlying soft tissues appear unremarkable. IMPRESSION: Small to moderate left pleural effusion and/or consolidation. Dictated by: Valentin Rollins M.D. on 04/07/2023 at 8:48 Approved by: Valentin Rollins M.D. on 04/07/2023 at 8:49
--- NOTE | 2023-04-07 08:24 | ED.ARRPALP ---
HPI - Arrhythmia/Palpitations General Chief Complaint: Arrhythmia/Palpitations Stated Complaint: Elevated Heart Rate Time Seen by Provider: 04/07/23 08:13 History of Present Illness HPI narrative: This is a 72-year-old man with a complex cardiac history including ventricular fibrillation arrest with AICD implant, coronary artery disease status post cardiac stents and recurrent dysrhythmias as well as permanent atrial fibrillation on anticoagulation. Typically sees Dr. Prater in [place], I was able to review a cardiology consult note from Dr. Chatman from February of this year. Patient tells me that he awoke this morning with a rapid heart rate. He says he has tinnitus all the time and can hear his pulse in the tinnitus. He has not having chest pain or shortness of breath. Continued his anticoagulation and has not missed any of his regular cardiac medications. I reviewed his medications with him and confirmed that he is taken his normal a.m. medications, medications include amiodarone 200 mg g daily, he is taking metoprolol, unsure whether it is the tartrate succinate at this point although he took it this morning, mexiletine 150 t.i.d. Entresto b.i.d. spironolactone 12.5 daily and Pradaxa 150 b.i.d.. He has Lasix on his medication list but has not been taking that reports it as needed only. He states he has not been ill recently, no fevers cough sore throat nausea vomiting or diarrhea. No recent changes in his medications. Related Data Home Medications Medication Instructions Recorded Confirmed atorvastatin 80 mg tablet 80 mg PO BEDTIME ##0 01/31/09 04/07/23 dabigatran etexilate 150 mg 150 mg PO BID 08/25/21 04/07/23 capsule (Pradaxa) spironolactone 25 mg tablet 12.5 mg PO DAILY 08/25/21 04/07/23 empagliflozin 10 mg tablet 10 mg PO DAILY 07/15/22 04/07/23 (Jardiance) sacubitril 24 mg-valsartan 26 mg 1 tab PO DAILY 07/15/22 04/07/23 tablet (Entresto) amoxicillin 500 mg tablet 2,000 mg PO .COMPLEX PRN dental 09/30/22 04/07/23 aspirin 81 mg tablet,delayed 81 mg PO DAILY 09/30/22 04/07/23 release furosemide 40 mg tablet 40 mg PO DAILY PRN weight gain of 12/27/22 04/07/23 3 pounds or more acetaminophen 500 mg tablet 500 mg 04/07/23 metoprolol succinate 100 mg PO DAILY 04/07/23 04/07/23 mexiletine 150 mg capsule 150 mg PO 3XD 04/07/23 04/07/23 trazodone 50 mg tablet 25 mg PO ONCE PM PRN Sleep 04/07/23 04/07/23 venlafaxine 75 mg capsule,extended 225 mg PO DAILY 04/07/23 04/07/23 release 24 hr Previous Rx's Medication Instructions Recorded amiodarone 200 mg tablet 200 mg PO DAILY #60 tabs 08/13/22 [address]ing Permit 1 ea Not Applicable DAILY #1 ea 09/30/22 colchicine 0.6 mg tablet 0.6 mg PO DAILY #90 tabs 10/18/22 Allergies Allergy/AdvReac Type Severity Reaction Status Date / Time No Known Drug Allergies Allergy Verified 04/07/23 08:26 Patient History Medical History COPD (chronic obstructive pulmonary disease) Erectile dysfunction Foot drop, right Generalized weakness Depression, major, recurrent Ventricular tachycardia Benign essential tremor Chronic low back pain History of ventricular fibrillation 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 Mixed hyperlipidemia Essential hypertension Chronic anticoagulation Systolic CHF, chronic Osteoarthritis Back pain MAR (obstructive sleep apnea) HTN (hypertension) HLD (hyperlipidemia) History of cardioversion Esophageal reflux Anxiety Depression Mitral valve insufficiency Paroxysmal A-fib CAD (coronary artery disease) Ischemic cardiomyopathy Pacemaker (09/01/15) Surgical History Status post epidural steroid injection Hx of tonsillectomy H/O vasectomy Hx of heart artery stent (1997) Hx of bilateral cataract extraction History of cardiac radiofrequency ablation History of cardiac cath Hx of heart artery stent (2002) 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 There is no swelling nor any obvious injury. Resp Effort & Inspection: normal respiratory effort Auscultation: clear to auscultation bilaterally Cardio Other: Tachycardic, regular rhythm 30 systolic murmur GI Other: Normal bowel sounds soft and nontender Skin Other: SKIN: Warm, pink, and dry. No erythema or rash Neuro Other: Patient is alert and oriented x3 and with normal mood and affect. Cranial nerves II through XII are intact and there is no appreciable numbness or weakness. Course Orders Ordered: ED Orders 04/07/23 08:21 CXR [XR chest 1V] Stat EKG-12 Lead Stat 04/07/23 08:25 CBC Auto Diff [Complete Blood Count AUTO DIFF] Stat CMP [Comprehensive Metabolic Panel] Stat Magnesium Stat Trop I [Troponin I] Stat Reevaluation(s) Reevaluation #1: Tachycardia has been terminated he appears to now be in normal sinus rhythm Consultations Consultation #1: Case was discussed with Dr. Boothe, cardiology, recommends be contact electrophysiology and consider transfer to a higher level of care. Case was discussed with Dr. Gasper [place], dsp engineer at [facility], he is going to review the interrogation data and check back with me at 09:44 Consultation #2: Dr. [place] calls back, [place] enrollment representative has with his guidance been able to terminate the patient's slow ventricular tachycardia. Settings on the device have been adjusted. Patient may be discharged home to follow up with Cardiology in the office tomorrow at 2:00 p.m.. Vital Signs Vital signs: Vital Signs - 8 hr 04/07/23 08:15 04/07/23 08:16 04/07/23 08:16 Temperature Pulse Rate 110 H 110 H Respiratory Rate 16 14 Blood Pressure 111/82 Pulse Oximetry 95 Oxygen Delivery Method 04/07/23 08:20 04/07/23 08:30 04/07/23 09:00 Temperature 98.4 F Pulse Rate 111 H 107 H 103 H Respiratory Rate 18 14 19 Blood Pressure 111/82 Pulse Oximetry 99 98 99 Oxygen Delivery Method Room Air 04/07/23 09:37 04/07/23 09:42 04/07/23 09:42 Temperature Pulse Rate 112 H 111 H Respiratory Rate 21 16 Blood Pressure 103/66 Pulse Oximetry 98 99 Oxygen Delivery Method Room Air 04/07/23 09:43 04/07/23 10:00 04/07/23 10:01 Temperature Pulse Rate 110 H Respiratory Rate 15 Blood Pressure 103/66 124/57 L Pulse Oximetry 97 Oxygen Delivery Method 04/07/23 10:01 04/07/23 10:30 04/07/23 10:30 Temperature Pulse Rate 109 H 108 H Respiratory Rate 17 19 Blood Pressure 112/72 Pulse Oximetry 98 97 Oxygen Delivery Method 04/07/23 11:00 04/07/23 11:00 04/07/23 11:05 Temperature 97.6 F Pulse Rate 49 L 50 L Respiratory Rate 21 20 Blood Pressure 105/57 L 105/57 L Pulse Oximetry 98 98 Oxygen Delivery Method Room Air MDM - Arrhythmia/Palpitations Medical Records Medical records narrative: Cardiology note from reviewed Lab Data Lab results narrative: CBC with diff and CMP are unremarkable, troponin and magnesium were normal 04/07/23 08:25 04/07/23 08:25 Labs: Lab Results 04/07/23 Range/Units 08:25 WBC 7.2 (4.5-11.0) X10^3/uL RBC 4.68 (4.5-5.9) X10^6/uL Hgb 14.0 (13.5-17.5) g/dL Hct 42.5 (41-53) % MCV 90.8 (80-100) fL MCH 30.0 (26-34) PG MCHC 33.0 (30-36) % RDW 15.8 H (11.6-14.8) % Plt Count 250 (150-400) X10^3/uL Neut % (Auto) 60.9 (50-75) % Lymph % (Auto) 18.6 L (25-40) % [place] % (Auto) 12.2 (3-14) % Eos % (Auto) 7.8 H (2-4) % Baso % (Auto) 0.5 (0-2) % Neut # (Auto) 4400 (8370-7721) /uL Lymph # (Auto) 1300 (1129-9704) /uL [place] # (Auto) 900 (0-900) /uL Eos # (Auto) 600 H (0-450) /uL Baso # (Auto) 0 (0-100) /uL Sodium 138 (137-145) mmol/L Potassium 4.5 (3.4-5.1) mmol/L Chloride 104 (98-107) mmol/L Carbon Dioxide 25 (22-32) mmol/L BUN 18 (9-20) mg/dL Creatinine 1.19 (0.66-1.25) mg/dL Estimated GFR > 60 (>60) mL/min BUN/Creatinine Ratio 15.1 (6-22) Glucose 115 H (80-110) mg/dL Calcium 9.7 (8.4-10.2) mg/dL Magnesium 2.1 (1.6-2.3) mg/dL Total Bilirubin 0.6 (0.2-1.3) mg/dL AST 69 H (17-59) IU/L ALT 112 H (<50) IU/L Alkaline Phosphatase 68 (38-126) U/L Troponin I < 0.012 (0.01-0.034) ng/mL Total Protein 8.2 (6.3-8.2) g/dL Albumin 4.4 (3.5-5.0) g/dL Globulin 3.8 (1.7-4.1) g/dL Albumin/Globulin Ratio 1.2 (1.0-2.8) Urine Dip Bedside Urine Glucose 1000 mg/dl Bedside Urine Bilirubin - Negative Bedside Urine Ketone - Negative Urine Specific [place] 1.02 Bedside Urine Occult Blood - Negative Bedside Urine pH 6 Bedside Urine Protein - Negative Bedside Urine Urobilinogen - Negative Bedside Urine Nitrite - Negative Bedside Urine Leukocytes - Negative Esterase Imaging Data Chest x-ray: My Impression: Independent review of chest x-ray, cardiomegaly without acute findings, AICD with leads in place Radiologist's Impresson: IMPRESSION: Small to moderate left pleural effusion and/or consolidation. Dictated by: Valentin Rollins M.D. on 04/07/2023 at 8:48 Approved by: Valentin Rollins M.D. on 04/07/2023 at 8:49 ECG Data Interpretation: ECG shows a regular wide complex tachycardia at a rate of 108. QRS duration 206 milliseconds. Does not have criteria for [place]. MDM Narrative Medical decision making narrative: 72-year-old man with a complex cardiac history including ventricular fibrillation ventricular tachycardia and AICD implant. He presents today with a wide complex regular tachycardia that appears to be slow ventricular tachycardia. He is normotensive and stable. Cardiology was consulted, and his AICD was utilized to terminate the ventricular tachycardia and his settings were changed. He was stable otherwise did not appear to have an acute infection acute ischemic event or significant electrolyte disturbance. After discussion with Cardiology was discharged to home. Discharge Plan Departure Patient Disposition: Home Clinical Impression: Ventricular tachycardia Activity Restrictions/Additional Instructions: Today, we treated ventricular tachycardia. Fortunately you were stable and they were able to adjust your device to treat this should the ventricular tachycardia recur. Continue your previous home medications. We would like you to be seen tomorrow by cardiology here in the [place] office, you have an appointment at 2:20 a.m., they asked that you check in at 2:00 p.m.. Return to the emergency department if you are having chest pain shortness of breath feeling faint or other acute symptoms. Prescriptions: No Action atorvastatin 80 mg Tablet 80 mg PO BEDTIME Qty: 0 colchicine 0.6 mg tablet 0.6 mg PO DAILY Qty: 90 3RF Jardiance 10 mg tablet 10 mg PO DAILY Entresto 24-26 mg tablet 1 tab PO DAILY amoxicillin 500 mg tablet 2,000 mg PO .COMPLEX PRN (Reason: dental) Rx Instructions: Take 4 tablets by mouth one time as needed 1 hour prior to dental procedure. aspirin 81 mg tablet,delayed release (DR/EC) 81 mg PO DAILY Disabled Parking Permit 1 ea Not Applicable DAILY Qty: 1 0RF Rx Instructions: As directed furosemide 40 mg tablet 40 mg PO DAILY PRN (Reason: weight gain of 3 pounds or more) amiodarone 200 mg tablet 200 mg PO DAILY Qty: 60 2RF Rx Instructions: 2T at breakfast and 2T at lunch for 7 days then 2T a breakfast for 7 days then 1 tab a day afterward acetaminophen 500 mg Tablet 500 mg mexiletine 150 mg capsule 150 mg PO 3XD metoprolol succinate 100 mg PO DAILY venlafaxine 75 mg capsule,extended release 24hr 225 mg PO DAILY trazodone 50 mg tablet 25 mg PO ONCE PM PRN (Reason: Sleep) spironolactone 25 mg Tablet 12.5 mg PO DAILY dabigatran etexilate [Pradaxa] 150 mg Capsule 150 mg PO BID Referrals: González Lopez MD [Primary Care Provider] - Alex Hernandez PA-C [Physician] - (check in tomorrow at 2pm) Stand Alone Forms: Patient Portal/API
[2023-04-07 08:37] LABS: Add Manual Diff / Slide Review NO; Basophils Absolute Auto 0 /uL (0-100); Basophils Percent Auto 0.5 % (0-2); Eosinophils Absolute Auto 600 /uL (0-450); Eosinophils Percent Auto 7.8 % (2-4); Hematocrit 42.5 % (41-53); Lymphocytes Absolute Auto 1300 /uL (1100-4500); Lymphocytes Percent Auto 18.6 % (25-40); Mean Corpuscular Volume 90.8 fL (80-100); Monocytes Absolute Auto 900 /uL (0-900); Monocytes Percent Auto 12.2 % (3-14); Neutrophils Absolute Auto 4400 /uL (1500-7000); Neutrophils Percent Auto 60.9 % (50-75); Platelet Count 250 X10^3/uL (150-400); Red Blood Cell Count 4.68 X10^6/uL (4.5-5.9); Red Cell Distribution Width 15.8 % (11.6-14.8); White Blood Cell Count 7.2 X10^3/uL (4.5-11.0)
--- NOTE | 2023-04-07 08:42 | PC.NURSE ---
Pt presented to the emergency dept today because he woke up feeling like his heart rate was fast and had tinnitus. Pt has had pacemaker for 7 years that he is normally paced at 52 and in September 2022 went to [facility] for ablation for vfib. Pt denies any cp and sob. Denies any dizziness or lightheadedness. HR currently 111 and bp 111/82. Pt expresses that he is feeling mild anxiety but his overall demeanor is calm. Pacemaker interrogated. Dr Lopez at bedside during triage. Pt a&ox4.
[2023-04-07 08:47] LABS: Alanine Aminotransferase 112 IU/L (<50); Albumin 4.4 g/dL (3.5-5.0); Albumin Globulin Ratio 1.2 (1.0-2.8); Alkaline Phosphatase 68 U/L (38-126); Aspartate Aminotransferase 69 IU/L (17-59); BUN Creatinine Ratio 15.1 (6-22); Bilirubin Total 0.6 mg/dL (0.2-1.3); Blood Urea Nitrogen 18 mg/dL (9-20); Calcium 9.7 mg/dL (8.4-10.2); Carbon Dioxide 25 mmol/L (22-32); Chloride 104 mmol/L (98-107); Estimated Glomerular Filt Rate > 60 mL/min (>60); Globulin 3.8 g/dL (1.7-4.1); Glucose 115 mg/dL (80-110); HEMOLYSIS < 15 (0-50); Magnesium 2.1 mg/dL (1.6-2.3); Potassium 4.5 mmol/L (3.4-5.1); Sodium 138 mmol/L (137-145); Total Protein 8.2 g/dL (6.3-8.2)
[2023-04-07 08:58] LABS: Troponin I < 0.012 ng/mL (0.01-0.034)
== END 2023-04-07 11:06 | disposition home or self-care (01) ==
PROVIDERS: Emergency Provider Emergency Medicine; Family Provider Family Medicine; PCP Internal Medicine
DX: I47.20 Ventricular tachycardia, unspecified (principal); Z79.01 Long term (current) use of anticoagulants
CPT/HCPCS: 36415; 71045; 80053; 81003; 83735; 84484; 85025; 93005; 99284

== ENCOUNTER 2023-04-30 14:42 | Emergency (ER) | payer MEDICARE, SELFPAY ==
[2022-08-18 11:11] VITALS: BMI 29.4
[2023-04-30 14:52] VITALS: BP 125/62; PULSE 50; RESP 19; TEMP 37.1; O2SAT 98; BMI 26.5
--- NOTE | 2023-04-30 15:04 | ED_ITS ---
HPI - Recheck/Abnormal Lab/Rx General Chief Complaint: Recheck/Abnormal Lab/Rx Stated Complaint: dr ref/high potassium Time Seen by Provider: 04/30/23 15:03 Source: patient Mode of arrival: Family Vehicle History of Present Illness HPI narrative: 72-year-old male presents for lab recheck. He had labs drawn earlier this morning for preoperative purposes. He received a call not long ago saying that his potassium was 6.1 and he needed to come to the emergency department. He states that he is felt in his usual state of health and has had no medication changes recently. He does take spironolactone and after receiving the phone call about his labs he was told to stop taking spironolactone. Related Data Home Medications Medication Instructions Recorded Confirmed amoxicillin 500 mg tablet 2,000 mg PO .COMPLEX PRN dental 09/30/22 04/20/23 furosemide 40 mg tablet 40 mg PO DAILY PRN weight gain of 12/27/22 04/20/23 3 pounds or more trazodone 50 mg tablet 25 mg PO ONCE PM PRN Sleep 04/07/23 04/20/23 Previous Rx's Medication Instructions Recorded Disabled Parking Permit 1 ea Not Applicable DAILY #1 ea 09/30/22 amiodarone 200 mg tablet 200 mg PO DAILY #90 tabs 04/13/23 atorvastatin 80 mg tablet 80 mg PO BEDTIME #90 tabs 04/13/23 colchicine 0.6 mg tablet 0.6 mg PO DAILY #90 tabs 04/13/23 dabigatran etexilate 150 mg 150 mg PO BID #180 caps 04/13/23 capsule (Pradaxa) empagliflozin 10 mg tablet 10 mg PO DAILY #90 tabs 04/13/23 (Jardiance) metoprolol succinate 100 mg 100 mg PO BID #180 tabs 04/13/23 tablet,extended release 24 hr mexiletine 150 mg capsule 150 mg PO 3XD #270 caps 04/13/23 sacubitril 24 mg-valsartan 26 mg 1 tab PO DAILY #90 tabs 04/13/23 tablet (Entresto) venlafaxine 75 mg capsule,extended 225 mg (3 x 75 mg) PO DAILY #270 04/13/23 release 24 hr caps aspirin 81 mg tablet,delayed 81 mg PO DAILY #90 tabs 04/15/23 release spironolactone 25 mg tablet 12.5 mg (1/2 x 25 mg) PO DAILY #45 04/18/23 tabs cephalexin 500 mg capsule 500 mg PO QID #20 caps 04/20/23 Allergies Allergy/AdvReac Type Severity Reaction Status Date / Time No Known Drug Allergies Allergy Verified 04/20/23 13:49 Review of Systems Review of Systems Narrative: Negative Patient History Medical History COPD (chronic obstructive pulmonary disease) Erectile dysfunction Foot drop, right Generalized weakness Depression, major, recurrent Ventricular tachycardia Benign essential tremor Chronic low back pain History of ventricular fibrillation 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 Mixed hyperlipidemia Essential hypertension Chronic anticoagulation Systolic CHF, chronic Osteoarthritis Back pain MAR (obstructive sleep apnea) HTN (hypertension) HLD (hyperlipidemia) History of cardioversion Esophageal reflux Anxiety Depression Mitral valve insufficiency Paroxysmal A-fib CAD (coronary artery disease) Ischemic cardiomyopathy Pacemaker (09/01/15) Surgical History Status post epidural steroid injection Hx of tonsillectomy H/O vasectomy Hx of heart artery stent (1997) Hx of bilateral cataract extraction History of cardiac radiofrequency ablation History of cardiac cath Hx of heart artery stent (2002) 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), 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, 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 Smoking Status: Former smoker alcohol intake: current Smoking Status: Former smoker tobacco type: cigarettes alcohol intake frequency: holidays/special occasions only Substance Use Type: does not use Exam Initial Vital Signs Initial Vital Signs: Vital Signs Temperature 98.8 F 04/30/23 14:52 Pulse Rate 50 L 04/30/23 14:52 Respiratory Rate 19 04/30/23 14:52 Blood Pressure 125/62 04/30/23 14:52 Pulse Oximetry 98 04/30/23 14:52 Oxygen Delivery Method Room Air 04/30/23 14:52 Const: Awake, alert, no acute distress, nontoxic appearing Cardiac: Bradycardia, regular rhythm RESP: unlabored, clear bilaterally, no wheezing GI: Atraumatic, soft, nondistended Skin: Warm, Dry, intact, no rashes Neuro: AO x3, CN II-XII grossly intact, moves all extremities Psych: affect normal, mood normal, not suicidal, not homicidal Course Orders Ordered: ED Orders 04/30/23 15:08 EKG-12 Lead Stat 04/30/23 15:20 CBC Auto Diff [Complete Blood Count AUTO DIFF] Stat CMP [Comprehensive Metabolic Panel] Stat Vital Signs Vital signs: Vital Signs - 8 hr 04/30/23 14:52 04/30/23 15:48 04/30/23 15:48 Temperature 98.8 F Pulse Rate 50 L 50 L 50 L Respiratory Rate 19 16 22 Blood Pressure 125/62 101/52 L Pulse Oximetry 98 96 95 Oxygen Delivery Method Room Air Room Air MDM - Recheck/Abnormal Lab/Rx Lab Data 04/30/23 15:20 04/30/23 15:20 Labs: Lab Results 04/30/23 Range/Units 15:20 WBC 7.0 (4.5-11.0) X10^3/uL RBC 4.61 (4.5-5.9) X10^6/uL Hgb 13.2 L (13.5-17.5) g/dL Hct 41.4 (41-53) % MCV 89.9 (80-100) fL MCH 28.7 (26-34) PG MCHC 32.0 (30-36) % RDW 15.7 H (11.6-14.8) % Plt Count 273 (150-400) X10^3/uL Neut % (Auto) 62.0 (50-75) % Lymph % (Auto) 17.9 L (25-40) % [place] % (Auto) 13.3 (3-14) % Eos % (Auto) 5.4 H (2-4) % Baso % (Auto) 1.4 (0-2) % Neut # (Auto) 4300 (2262-1203) /uL Lymph # (Auto) 1200 (1191-1047) /uL [place] # (Auto) 900 (0-900) /uL Eos # (Auto) 400 (0-450) /uL Baso # (Auto) 100 (0-100) /uL Sodium 138 (137-145) mmol/L Potassium 4.6 (3.4-5.1) mmol/L Chloride 102 (98-107) mmol/L Carbon Dioxide 27 (22-32) mmol/L BUN 32 H (9-20) mg/dL Creatinine 1.28 H (0.66-1.25) mg/dL Estimated GFR 59 L (>60) mL/min BUN/Creatinine Ratio 25.0 H (6-22) Glucose 135 H (80-110) mg/dL Calcium 9.2 (8.4-10.2) mg/dL Total Bilirubin 0.5 (0.2-1.3) mg/dL AST 55 (17-59) IU/L ALT 78 H (<50) IU/L Alkaline Phosphatase 61 (38-126) U/L Total Protein 8.1 (6.3-8.2) g/dL Albumin 4.3 (3.5-5.0) g/dL Globulin 3.8 (1.7-4.1) g/dL Albumin/Globulin Ratio 1.1 (1.0-2.8) ECG Data Interpretation: Sinus bradycardia, normal GA intervals, no ST T wave changes, no STEMI MDM Narrative Medical decision making narrative: Hyperkalemia on outside lab work. Patient denies any medication changes, denies any symptoms presently, states that he is eager to have his operation next week. Repeat lab draw shows potassium 4.6, no EKG evidence of hyperkalemia. 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 Discharge Plan Departure Patient Disposition: Home Clinical Impression: Pacemaker Instructions: Potassium Activity Restrictions/Additional Instructions: YOUR POTASSIUM TODAY WAS 4.6, WHICH IS WITHIN NORMAL LIMITS. Prescriptions: No Action amiodarone 200 mg tablet 200 mg PO DAILY Qty: 90 3RF atorvastatin 80 mg tablet 80 mg PO BEDTIME Qty: 90 3RF colchicine 0.6 mg tablet 0.6 mg PO DAILY Qty: 90 3RF mexiletine 150 mg capsule 150 mg PO 3XD Qty: 270 3RF venlafaxine 75 mg capsule,extended release 24hr 225 mg PO DAILY Qty: 270 3RF dabigatran etexilate [Pradaxa] 150 mg capsule 150 mg PO BID Qty: 180 3RF Jardiance 10 mg tablet 10 mg PO DAILY Qty: 90 3RF metoprolol succinate 100 mg tablet extended release 24 hr 100 mg PO BID Qty: 180 3RF Entresto 24-26 mg tablet 1 tab PO DAILY Qty: 90 3RF aspirin 81 mg tablet,delayed release (DR/EC) 81 mg PO DAILY Qty: 90 1RF spironolactone 25 mg tablet 12.5 mg PO DAILY Qty: 45 3RF amoxicillin 500 mg tablet 2,000 mg PO .COMPLEX PRN (Reason: dental) Rx Instructions: Take 4 tablets by mouth one time as needed 1 hour prior to dental procedure. Disabled Parking Permit 1 ea Not Applicable DAILY Qty: 1 0RF Rx Instructions: As directed furosemide 40 mg tablet 40 mg PO DAILY PRN (Reason: weight gain of 3 pounds or more) cephalexin 500 mg capsule 500 mg PO QID Qty: 20 0RF trazodone 50 mg tablet 25 mg PO ONCE PM PRN (Reason: Sleep) Referrals: González Lopez MD [Primary Care Provider] - Stand Alone Forms: Patient Portal/API
[2023-04-30 15:29] LABS: Add Manual Diff / Slide Review NO; Basophils Absolute Auto 100 /uL (0-100); Basophils Percent Auto 1.4 % (0-2); Eosinophils Absolute Auto 400 /uL (0-450); Eosinophils Percent Auto 5.4 % (2-4); Hematocrit 41.4 % (41-53); Hemoglobin 13.2 g/dL (13.5-17.5); Lymphocytes Absolute Auto 1200 /uL (1100-4500); Lymphocytes Percent Auto 17.9 % (25-40); Mean Corpuscular Hemoglobin 28.7 PG (26-34); Mean Corpuscular Volume 89.9 fL (80-100); Monocytes Absolute Auto 900 /uL (0-900); Monocytes Percent Auto 13.3 % (3-14); Neutrophils Absolute Auto 4300 /uL (1500-7000); Platelet Count 273 X10^3/uL (150-400); Red Blood Cell Count 4.61 X10^6/uL (4.5-5.9); Red Cell Distribution Width 15.7 % (11.6-14.8)
[2023-04-30 15:41] LABS: Alanine Aminotransferase 78 IU/L (<50); Albumin 4.3 g/dL (3.5-5.0); Albumin Globulin Ratio 1.1 (1.0-2.8); Alkaline Phosphatase 61 U/L (38-126); Aspartate Aminotransferase 55 IU/L (17-59); Bilirubin Total 0.5 mg/dL (0.2-1.3); Blood Urea Nitrogen 32 mg/dL (9-20); Calcium 9.2 mg/dL (8.4-10.2); Carbon Dioxide 27 mmol/L (22-32); Chloride 102 mmol/L (98-107); Estimated Glomerular Filt Rate 59 mL/min (>60); Globulin 3.8 g/dL (1.7-4.1); Glucose 135 mg/dL (80-110); HEMOLYSIS 24 (0-50); Potassium 4.6 mmol/L (3.4-5.1); Sodium 138 mmol/L (137-145); Total Protein 8.1 g/dL (6.3-8.2)
[2023-04-30 15:48] VITALS: BP 101/52; PULSE 50; RESP 16; RESP 22; O2SAT 95; O2SAT 96
== END 2023-04-30 16:07 | disposition home or self-care (01) ==
PROVIDERS: Emergency Provider Emergency Medicine; Family Provider Family Medicine; PCP Internal Medicine
DX: E87.5 Hyperkalemia (principal); Z95.0 Presence of cardiac pacemaker; R00.1 Bradycardia, unspecified
CPT/HCPCS: 36415; 80053; 85025; 93005; 93010; 99281; 99283

== ENCOUNTER → 2023-06-04 09:14 | Outpatient (CLI) | payer MEDICARE, SELFPAY ==
[2022-08-18 11:11] VITALS: BMI 29.4
[2023-06-07 11:10] LABS: Fecal Immunochemical Test Negative (Negative)
== END ==
PROVIDERS: Family Provider Family Medicine; PCP Internal Medicine; Referring Provider Internal Medicine; Visit Provider Internal Medicine
DX: Z12.11 Encounter for screening for malignant neoplasm of colon (principal)
CPT/HCPCS: 82274

== ENCOUNTER 2023-07-25 08:30 | Outpatient (RCR) | payer MEDICARE, OTHER, SELFPAY ==
[2022-08-18 11:11] VITALS: BMI 29.4
== END 2023-07-25 10:30 ==
LOC: PUL 08:30
PROVIDERS: Family Provider Family Medicine; PCP Internal Medicine; Referring Provider Internal Medicine; Visit Provider Internal Medicine
DX: J44.9 Chronic obstructive pulmonary disease, unspecified (principal)
CPT/HCPCS: G0237; G0238

== ENCOUNTER → 2023-11-30 09:05 | Outpatient (CLI) | payer MEDICARE, SELFPAY ==
[2022-08-18 11:11] VITALS: BMI 29.4
[2023-11-30 12:17] LABS: Hematocrit 40.6 % (41-53); Hemoglobin 13.1 g/dL (13.5-17.5); Mean Corpuscular HGB Conc 32.3 % (30-36); Mean Corpuscular Volume 89.9 fL (80-100); Platelet Count 285 X10^3/uL (150-400); Red Blood Cell Count 4.51 X10^6/uL (4.5-5.9); White Blood Cell Count 7.9 X10^3/uL (4.5-11.0)
[2023-11-30 12:34] LABS: Alanine Aminotransferase 51 IU/L (<50); Albumin 4.2 g/dL (3.5-5.0); Albumin Globulin Ratio 1.3 (1.0-2.8); Alkaline Phosphatase 62 U/L (38-126); Aspartate Aminotransferase 43 IU/L (17-59); BUN Creatinine Ratio 21.9 (6-22); Bilirubin Total 0.5 mg/dL (0.2-1.3); Blood Urea Nitrogen 30 mg/dL (9-20); Calcium 9.2 mg/dL (8.4-10.2); Carbon Dioxide 26 mmol/L (22-32); Chloride 102 mmol/L (98-107); Cholesterol 146 mg/dL (140-199); Estimated Glomerular Filt Rate 54 mL/min (>60); Globulin 3.2 g/dL (1.7-4.1); Glucose 93 mg/dL (80-110); HDL Cholesterol 67 mg/dL (40-60); HEMOLYSIS < 15 (0-50); LDL Cholesterol Calculated 57 mg/dL (<100); Potassium 5.2 mmol/L (3.4-5.1); Sodium 136 mmol/L (137-145); Total Protein 7.4 g/dL (6.3-8.2); Triglycerides 109 mg/dL (35-150)
[2023-11-30 22:04] LABS: Hemoglobin A1C% w Est Avg Glu 5.8 % (4.0-6.0)
== END ==
PROVIDERS: Family Provider Family Medicine; PCP Internal Medicine; Referring Provider Internal Medicine; Visit Provider Internal Medicine
DX: I48.0 Paroxysmal atrial fibrillation (principal); R73.01 Impaired fasting glucose; E78.2 Mixed hyperlipidemia
CPT/HCPCS: 36415; 80053; 80061; 83036; 85027

== ENCOUNTER → 2023-12-16 08:00 | Outpatient (CLI) | payer MEDICARE, SELFPAY ==
[2022-08-18 11:11] VITALS: BMI 29.4
--- NOTE | 2023-12-16 08:01 | DI.ECHO.S_ITS ---
[place] +---------+ Hospital : : [address] : : SRIRAM Cavanaugh : : [id number] : : Phone: [phone] Echocardiogram Report + + :Name: ALENA WIGGINS Study Date: 12/16/2023 Height: 70 in : :[facility] ReadingLocation: Weight: 190 lb : : Gender: Male BSA: 2.0 m2 : :: 1950 Age: 73 yrs BP: 107/59 mmHg: :Reason For Study: ISCHEMIC CARDIOMYOPATHY : :Ordering Physician: NIKOLE, : :GRETA Performed By: Anastasiia Lowery : :Referring: GRETA CHATMAN : + + Interpretation Summary 1) Normal left ventricular size and thickness with moderately reduced systolic function (EF 35-40%). 2) Basal to mid inferior wall and basal inferolateral wall are akinetic. Rest of the left ventricle is hypokinetic. 3) Normal right ventricular size and function. There is a pacemaker lead in the right ventricle. 4) No significant valvular abnormalities. 5) Compared to the co done 05/11/2023, LVEF has decreased from 40-45% to 35- 40% on this study. Pericardial effusion has resolved on hs study. Procedure: A two-dimensional transthoracic echocardiogram with color flow and Doppler was performed. The study quality was technically adequate. Comparison is made with the echocardiogram of 08/28/2020. The patient has a paced rhythm. The heart rate ranged between 60 bpm during the study. Left Ventricle: The left ventricle is normal in size and wall thickness. The ejection fraction is estimated to be 35-40%. Basal to mid inferior wall and basal inferolateral wall are akinetic. Rest of the left ventricle is hypokinetic. Right Ventricle: There is a pacemaker lead in the right ventricle. The right ventricle is normal in size and function. Atria: The left atrium is mildly dilated. The right atrium is mildly dilated. There is no Doppler evidence for an interatrial shunt. Mitral Valve: Reduced movement of posterior mitral valve leaflet. The mitral valve chordae are thickened and/or calcified. There is mild mitral regurgitation. The mitral regurgitant jet is eccentrically directed. Aortic Valve: The aortic valve is not well visualized. There is no aortic valve stenosis. There is trace aortic regurgitation. Tricuspid Valve: The tricuspid valve is normal in structure and function. There is trace tricuspid regurgitation. The right ventricular systolic pressure is estimated to be at least 22 mmHg based on an estimated right atrial pressure of 3 mm Hg. Pulmonic Valve: The pulmonic valve leaflets are thin and pliable; valve motion is normal. There is no pulmonic valvular regurgitation. Great Vessels: The aortic root is normal size. The dimensions of the ascending aorta are normal. The IVC is of normal diameter and collapses greater than 50% with a sniff. This suggests a low right atrial pressure of 3 mm Hg. Pericardium/ Pleura There is no pericardial effusion. There is no pleural effusion. MMode/2D Measurements & Calculations LVIDd: 5.7 cm LVOT diam: 2.1 cm LVIDs: 4.5 cm Ao root diam: 3.9 cm FS: 21.7 % asc Aorta Diam: 3.2 cm EPSS: 1.3 cm Ao Arch Diam (Prox Trans): 2.4 cm IVSd: 0.86 cm LVPWd: 0.89 cm LV paz. diameter/BSA (cm/m^2): 2.8 LV sys. diameter/BSA (cm/m^2): 2.2 LA A2 area: 25.3 cm2 RA long axis: 6.0 cm LA A4 area: 23.4 cm2 RA area: 24.2 cm2 LA length (vol): 6.3 cm RA vol: 82.5 ml LA vol: 79.2 ml RA : 40.4 ml/m2 LA vol index: 38.8 ml/m2 IVC diam: 1.7 cm RVD1 (basal): 4.7 cm TAPSE: 2.3 cm Doppler Measurements & Calculations Ao V2 max: 124.0 cm/sec LVOT Max Franki: 69.3 cm/sec Ao V2 mean: 86.2 cm/sec LV V1 max P.9 mmHg Ao max P.2 mmHg LV V1 VTI: 12.9 cm Ao mean P.3 mmHg CRISTY(I,D): 1.8 cm2 Ao V2 VTI: 25.6 cm CRISTY(V,D): 2.0 cm2 sev ratio: 0.50 CRISTY indexed to BSA (cm^2/m^2): 0.87 MV E max franki: 58.8 cm/sec TR max franki: 217.9 cm/sec MV A max franki: 94.5 cm/sec TR max P.0 mmHg MV E/A: 0.62 PA V2 max: 76.1 cm/sec Med Peak E' Franki: 5.0 cm/sec PA V2 mean: 58.1 cm/sec E/E' med: 11.9 PA mean P.4 mmHg Lat Peak E' Franki: 4.8 cm/sec PA pr(Accel): 37.9 mmHg E/E' lat: 12.1 E/e' average: 12.0 MV dec time: 0.31 sec MR ERO: 0.29 cm2 MR PISA: 4.0 cm2 SV(LVOT): 45.3 ml MR flow rate: 149.2 cm3/sec MR PISA radius: 0.80 cm Reading Physician:11:19 AM
== END ==
LOC: ECHO 08:00
PROVIDERS: Family Provider Family Medicine; PCP Internal Medicine; Referring Provider Internal Medicine Cardiovascular Disease; Visit Provider Internal Medicine Cardiovascular Disease
DX: I34.0 Nonrheumatic mitral (valve) insufficiency (principal); I34.81 Nonrheumatic mitral (valve) annulus calcification; I25.5 Ischemic cardiomyopathy; Z95.0 Presence of cardiac pacemaker
CPT/HCPCS: 93306

== ENCOUNTER → 2024-01-19 10:56 | Outpatient (CLI) | payer MEDICARE, SELFPAY ==
[2022-08-18 11:11] VITALS: BMI 29.4
[2024-01-19 12:45] LABS: Hematocrit 43.5 % (41-53); Hemoglobin 14.1 g/dL (13.5-17.5); Mean Corpuscular HGB Conc 32.5 % (30-36); Mean Corpuscular Hemoglobin 29.3 PG (26-34); Mean Corpuscular Volume 90.1 fL (80-100); Platelet Count 259 X10^3/uL (150-400); Red Blood Cell Count 4.83 X10^6/uL (4.5-5.9); Red Cell Distribution Width 15.9 % (11.6-14.8); White Blood Cell Count 6.1 X10^3/uL (4.5-11.0)
[2024-01-19 19:55] LABS: Alanine Aminotransferase 78 IU/L (<50); Albumin 4.1 g/dL (3.5-5.0); Albumin Globulin Ratio 1.3 (1.0-2.8); Alkaline Phosphatase 63 U/L (38-126); Aspartate Aminotransferase 60 IU/L (17-59); BUN Creatinine Ratio 21.5 (6-22); Bilirubin Total 0.5 mg/dL (0.2-1.3); Blood Urea Nitrogen 34 mg/dL (9-20); Calcium 9.2 mg/dL (8.4-10.2); Carbon Dioxide 24 mmol/L (22-32); Chloride 104 mmol/L (98-107); Estimated Glomerular Filt Rate 46 mL/min (>60); Globulin 3.2 g/dL (1.7-4.1); Glucose 92 mg/dL (80-110); HEMOLYSIS < 15 (0-50); Potassium 5.1 mmol/L (3.4-5.1); Sodium 137 mmol/L (137-145); Total Protein 7.3 g/dL (6.3-8.2)
[2024-01-19 20:24] LABS: TSH w/ Reflex to FT4 1.56 uIU/mL (0.47-4.68)
== END ==
PROVIDERS: Family Provider Family Medicine; PCP Internal Medicine; Referring Provider Internal Medicine; Visit Provider Internal Medicine
DX: I25.10 Atherosclerotic heart disease of native coronary artery without angina pectoris (principal); Z86.79 Personal history of other diseases of the circulatory system
CPT/HCPCS: 36415; 80053; 84443; 85027

== ENCOUNTER 2024-02-14 15:57 | Emergency (ER) | payer MEDICARE, SELFPAY ==
[2022-08-18 11:11] VITALS: BMI 29.4
[2024-02-14] VITALS (7 sets, daily range): BP systolic 101–114; BP diastolic 53–59; PULSE 60; RESP 16–29; TEMP 36.4; O2SAT 97–99; BMI 27.2
--- NOTE | 2024-02-14 16:09 | DI.RAD.S_ITS ---
PROCEDURE: XR CHEST 1V INDICATIONS: chest pain TECHNIQUE: One view of the chest was acquired. COMPARISON: [facility], CR, XR CHEST 1V, 04/07/2023, 8:20. FINDINGS: Surgical changes and devices: Right shoulder arthroplasty. Pacemaker. Lungs and pleura: Lungs are clear. No pleural effusions or pneumothorax. Mediastinum: Mediastinal contours appear normal. Mild cardiomegaly. Bones and chest wall: No suspicious bony lesions. Overlying soft tissues appear unremarkable. IMPRESSION: Mild cardiomegaly. No evidence acute pulmonary process. Dictated by: Alex Kinney M.D. on 02/14/2024 at 16:25 Approved by: Alex Kinney M.D. on 02/14/2024 at 16:25
--- NOTE | 2024-02-14 16:09 | EKG_ITS ---
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
[2024-02-14 17:06] LABS: Add Manual Diff / Slide Review NO; Basophils Absolute Auto 100 /uL (0-100); Eosinophils Absolute Auto 200 /uL (0-450); Hematocrit 39.7 % (41-53); Hemoglobin 12.9 g/dL (13.5-17.5); Lymphocytes Absolute Auto 700 /uL (1100-4500); Lymphocytes Percent Auto 12.4 % (25-40); Mean Corpuscular HGB Conc 32.4 % (30-36); Mean Corpuscular Hemoglobin 29.3 PG (26-34); Mean Corpuscular Volume 90.3 fL (80-100); Monocytes Absolute Auto 600 /uL (0-900); Monocytes Percent Auto 11.8 % (3-14); Neutrophils Absolute Auto 3900 /uL (1500-7000); Neutrophils Percent Auto 71.8 % (50-75); Platelet Count 217 X10^3/uL (150-400); White Blood Cell Count 5.5 X10^3/uL (4.5-11.0)
--- NOTE | 2024-02-14 17:10 | PC.NURSE ---
1630 PIV attempt x [address] PIV; Lab to come draw blood for orders.
[2024-02-14 17:14] LABS: INR 1.3 (0.9-1.3); Prothrombin Time 14.4 SECONDS (9.4-12.5)
[2024-02-14 17:16] LABS: PTT Partial Thromboplastin Tim 69 SECONDS (25.1-36.5)
[2024-02-14 17:18] LABS: Alanine Aminotransferase 50 IU/L (<50); Albumin 4.1 g/dL (3.5-5.0); Albumin Globulin Ratio 1.1 (1.0-2.8); Alkaline Phosphatase 54 U/L (38-126); Aspartate Aminotransferase 34 IU/L (17-59); BUN Creatinine Ratio 23.7 (6-22); Bilirubin Total 0.4 mg/dL (0.2-1.3); Blood Urea Nitrogen 33 mg/dL (9-20); Calcium 8.9 mg/dL (8.4-10.2); Carbon Dioxide 18 mmol/L (22-32); Chloride 108 mmol/L (98-107); Creatine Kinase 113 U/L (55-170); Estimated Glomerular Filt Rate 53 mL/min (>60); Globulin 3.6 g/dL (1.7-4.1); Glucose 117 mg/dL (80-110); HEMOLYSIS < 15 (0-50); Lipase 81 U/L (23-300); Magnesium 2.2 mg/dL (1.6-2.3); Potassium 3.3 mmol/L (3.4-5.1); Sodium 136 mmol/L (137-145); Total Protein 7.7 g/dL (6.3-8.2)
[2024-02-14 17:30] LABS: NT-proBNP (BNP-Adult 18+) 178 pg/mL (<125); Troponin I < 0.012 ng/mL (0.01-0.034)
[2024-02-14 18:35] LABS: Adenovirus F 40/41 Not Detected (Not Detect); Astrovirus Not Detected (Not Detect); Campylobacter Not Detected (Not Detect); Clostridium difficile toxin AB Not Detected (Not Detect); Cryptosporidium Not Detected (Not Detect); Cyclospora cayetanensis Not Detected (Not Detect); Entamoeba histolytica Not Detected (Not Detect); Enteroaggregative E.coli Not Detected (Not Detect); Enteropathogenic E.coli Not Detected (Not Detect); Enterotoxigenic E.coli It/st Detected (Not Detect); Giardia lamblia Not Detected (Not Detect); Norovirus GI/GII Not Detected (Not Detect); Plesiomonsa shigelloides Not Detected (Not Detect); Rotavirus A Not Detected (Not Detect); Salmonella Not Detected (Not Detect); Sapovirus Not Detected (Not Detect); Shiga-like toxin-prod E.coli Not Detected (Not Detect); Shigella/Enteroinvasive E.coli Not Detected (Not Detect); Vibrio Not Detected (Not Detect); Vibrio cholerae Not Detected (Not Detect); Yersinia enterocolitica Not Detected (Not Detect)
--- NOTE | 2024-02-14 21:07 | ED_ITS ---
HPI - General Adult General Chief complaint: Dizziness Stated complaint: diarrhea, dizziness, fainted pm, cardiac hx Time Seen by Provider: 02/14/24 18:13 Source: patient Mode of arrival: Ambulatory History of Present Illness HPI narrative: Patient is a 73-year-old male who is here for evaluation of approximately 1 week of diarrhea. Had an episode today dizziness and passing out. No fevers. He did travel to [facility] but that was proximally 3 weeks ago. No known sick contacts. No blood in his stool. No painful bowel movements. No problems urinating. No chest pain, shortness of breath. He was not vomiting. Related Data Previous Rx's Medication Instructions Recorded Disabled Parking Permit 1 ea Not Applicable DAILY #1 ea 09/30/22 amiodarone 200 mg tablet 200 mg PO DAILY #90 tabs 04/13/23 atorvastatin 80 mg tablet 80 mg PO BEDTIME #90 tabs 04/13/23 dabigatran etexilate 150 mg 150 mg PO BID #180 caps 04/13/23 capsule (Pradaxa) empagliflozin 10 mg tablet 10 mg PO DAILY #90 tabs 04/13/23 (Jardiance) metoprolol succinate 100 mg 100 mg PO BID #180 tabs 04/13/23 tablet,extended release 24 hr mexiletine 150 mg capsule 150 mg PO 3XD #270 caps 04/13/23 venlafaxine 75 mg capsule,extended 225 mg (3 x 75 mg) PO DAILY #270 04/13/23 release 24 hr caps spironolactone 25 mg tablet 25 mg PO DAILY #90 tabs 06/13/23 sacubitril 24 mg-valsartan 26 mg 0.5 tab PO BID #90 tabs 12/16/23 tablet (Entresto) ciprofloxacin HCl 500 mg tablet 500 mg PO BID 3 days #6 tabs 02/14/24 (Cipro) Allergies Allergy/AdvReac Type Severity Reaction Status Date / Time No Known Drug Allergies Allergy Verified 02/14/24 16:03 Review of Systems Review of Systems ROS Unobtainable: All systems reviewed & are unremarkable except as noted in HPI and below Patient History Medical History Right-sided tinnitus Impaired fasting glucose COPD (chronic obstructive pulmonary disease) Erectile dysfunction Foot drop, right Depression, major, recurrent Ventricular tachycardia Benign essential tremor Chronic low back pain History of ventricular fibrillation 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 Mixed hyperlipidemia Essential hypertension Chronic anticoagulation Systolic CHF, chronic Osteoarthritis Back pain MAR (obstructive sleep apnea) HTN (hypertension) HLD (hyperlipidemia) History of cardioversion Esophageal reflux Anxiety Depression Mitral valve insufficiency Paroxysmal A-fib CAD (coronary artery disease) Ischemic cardiomyopathy Surgical History Presence of biventricular implantable cardioverter-defibrillator (ICD) Status post epidural steroid injection Hx of tonsillectomy H/O vasectomy Hx of heart artery stent (1997) Hx of bilateral cataract extraction History of cardiac radiofrequency ablation History of cardiac cath Hx of heart artery stent (2002) 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), 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, 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 members: spouse Smoking Status: Former smoker alcohol intake: current Smoking Status: Former smoker tobacco type: cigarettes alcohol intake frequency: holidays/special occasions only Substance Use Type: does not use Exam Initial Vital Signs Initial Vital Signs: Vital Signs Temperature 97.5 F L 02/14/24 16:03 Pulse Rate 60 02/14/24 16:03 Respiratory Rate 16 02/14/24 16:03 Blood Pressure 103/59 L 02/14/24 16:03 Pulse Oximetry 99 02/14/24 16:03 Oxygen Delivery Method Room Air 02/14/24 16:03 Const General: cooperative, comfortable and No ill appearing HENMT Head: normal to inspection and normocephalic Resp Effort & Inspection: normal respiratory effort Auscultation: clear to auscultation bilaterally Cardio Rate: regular rate Rhythm: regular rhythm GI Inspection: normal to inspection and non-distended Neuro General: patient alert, patient awake and moves all extremities Extrem General: capillary refill normal Course Orders Ordered: ED Orders 02/14/24 17:13 GI Panel (Film Array) Stat Discontinued Medications Sodium Chloride (Normal Saline 0.9%) 1,000 mls @ 1,000 mls/hr IV BOLUS ONE Stop: 02/14/24 22:06 Last Infusion: 02/14/24 22:10 Dose: Infused Documented By: Admin: 02/14/24 21:13 Dose: 1,000 mls/hr Documented By: JESSICA Vital Signs Vital signs: Vital Signs - 8 hr 02/14/24 20:46 02/14/24 21:00 02/14/24 21:19 Pulse Rate 60 60 Respiratory Rate 29 H 22 16 Blood Pressure Pulse Oximetry 98 97 Oxygen Delivery Method 02/14/24 21:19 02/14/24 21:30 02/14/24 21:30 Pulse Rate 60 60 Respiratory Rate 17 16 Blood Pressure 101/53 L 111/57 L Pulse Oximetry 98 97 Oxygen Delivery Method 02/14/24 21:59 02/14/24 21:59 02/14/24 22:00 Pulse Rate 60 60 Respiratory Rate 17 16 Blood Pressure 113/56 L Pulse Oximetry 98 98 Oxygen Delivery Method Room Air 02/14/24 22:00 Pulse Rate Respiratory Rate Blood Pressure 114/57 L Pulse Oximetry Oxygen Delivery Method Medical Decision Making Lab Data Lab results reviewed: Yes I reviewed the patient's lab results. 02/14/24 16:56 02/14/24 16:56 Labs: Lab Results 02/14/24 02/14/24 Range/Units 16:56 17:13 WBC 5.5 (4.5-11.0) X10^3/uL RBC 4.40 L (4.5-5.9) X10^6/uL Hgb 12.9 L (13.5-17.5) g/dL Hct 39.7 L (41-53) % MCV 90.3 (80-100) fL MCH 29.3 (26-34) PG MCHC 32.4 (30-36) % RDW 16.0 H (11.6-14.8) % Plt Count 217 (150-400) X10^3/uL Neut % (Auto) 71.8 (50-75) % Lymph % (Auto) 12.4 L (25-40) % [place] % (Auto) 11.8 (3-14) % Eos % (Auto) 3.0 (2-4) % Baso % (Auto) 1.0 (0-2) % Neut # (Auto) 3900 (7417-1057) /uL Lymph # (Auto) 700 L (0801-2039) /uL [place] # (Auto) 600 (0-900) /uL Eos # (Auto) 200 (0-450) /uL Baso # (Auto) 100 (0-100) /uL PT 14.4 H (9.4-12.5) SECONDS INR 1.3 (0.9-1.3) APTT 69 H (25.1-36.5) SECONDS Sodium 136 L (137-145) mmol/L Potassium 3.3 L (3.4-5.1) mmol/L Chloride 108 H (98-107) mmol/L Carbon Dioxide 18 L (22-32) mmol/L BUN 33 H (9-20) mg/dL Creatinine 1.39 H (0.66-1.25) mg/dL Estimated GFR 53 L (>60) mL/min BUN/Creatinine Ratio 23.7 H (6-22) Glucose 117 H (80-110) mg/dL Calcium 8.9 (8.4-10.2) mg/dL Magnesium 2.2 (1.6-2.3) mg/dL Total Bilirubin 0.4 (0.2-1.3) mg/dL AST 34 (17-59) IU/L ALT 50 H (<50) IU/L Alkaline Phosphatase 54 (38-126) U/L Total Creatine Kinase 113 (55-170) U/L Troponin I < 0.012 (0.01-0.034) ng/mL NT-Pro-B Natriuret Pep 178 H (<125) pg/mL Total Protein 7.7 (6.3-8.2) g/dL Albumin 4.1 (3.5-5.0) g/dL Globulin 3.6 (1.7-4.1) g/dL Albumin/Globulin Ratio 1.1 (1.0-2.8) Lipase 81 (23-300) U/L Stl C. cayetanensis PCR Not detected (Not Detect) Stool Rotavirus (PCR) Not detected (Not Detect) Stool Adenovirus (PCR) Not detected (Not Detect) Stool Astrovirus (PCR) Not detected (Not Detect) Stool Cryptosporidium PCR Not detected (Not Detect) Stl E.coli Shiga Tox PCR Not detected (Not Detect) St Sh/Enteroin Ecoli PCR Not detected (Not Detect) Stl Enterotoxigenic E PCR Detected (Not Detect) Stool EPEC (PCR) Not detected (Not Detect) Stl E. histolytica PCR Not detected (Not Detect) Stool Giardia Lamblia PCR Not detected (Not Detect) Stool Sapovirus (PCR) Not detected (Not Detect) Stl P. shigelloides PCR Not detected (Not Detect) St Y.enterocolitica PCR Not detected (Not Detect) Stool Vibrio (PCR) Not detected (Not Detect) Stl Vibrio cholerae PCR Not detected (Not Detect) Stl Enteroaggr Ecoli PCR Not detected (Not Detect) Stl Norovirus GI/GII PCR Not detected (Not Detect) Campylobacter (PCR) Not detected (Not Detect) C. difficile Tox (PCR) Not detected (Not Detect) Salmonella (PCR) Not detected (Not Detect) Imaging Data Chest x-ray: Radiologist's Impression: PROCEDURE: XR CHEST 1V INDICATIONS: chest pain TECHNIQUE: One view of the chest was acquired. COMPARISON: [facility], , XR CHEST 1V, 04/07/2023, 8:20. FINDINGS: Surgical changes and devices: Right shoulder arthroplasty. Pacemaker. Lungs and pleura: Lungs are clear. No pleural effusions or pneumothorax. Mediastinum: Mediastinal contours appear normal. Mild cardiomegaly. Bones and chest wall: No suspicious bony lesions. Overlying soft tissues appear unremarkable. IMPRESSION: Mild cardiomegaly. No evidence acute pulmonary process. ECG Data Attestation: I personally reviewed and interpreted this ECG as follows: Interpretation: Atrially sensed ventricularly paced rhythm Rate of 60 MDM Narrative Medical decision making narrative: Patient was positive for entero toxigenic E coli. No leukocytosis. Benign abdominal exam. He was had symptoms for approximately 1 week. Plan will be is to provide a prescription for antibiotics however he was going to not take these antibiotics for the next several days. He was going to continue with conservative measures however if his symptoms are not improving in the next 3-5 days then he was going to fill the prescription and start taking it as directed. I suspect that the syncopal episode that he had earlier today is related to his diarrhea and most likely a degree of dehydration. He was tolerating oral intake. Fluids administered here in the ER. Will discharge patient home with return precautions. He expressed understanding and agreement plan. Discharge Plan Departure Patient Disposition: Home Clinical Impression: Diarrhea Instructions: Diarrhea (Alternative Therapy), Diarrhea Activity Restrictions/Additional Instructions: I do recommend that for the next couple days you hold on filling and taking the antibiotics to see if your symptoms improve. Be sure that you were increasing your fluid intake. If your symptoms are still persistent in 3-5 days from now start taking the antibiotics as directed. Contact your primary doctor for a follow-up. Return to the emergency department for new symptoms. Prescriptions: New ciprofloxacin HCl [Cipro] 500 mg tablet 500 mg PO BID 3 Days Qty: 6 0RF No Action amiodarone 200 mg tablet 200 mg PO DAILY Qty: 90 3RF atorvastatin 80 mg tablet 80 mg PO BEDTIME Qty: 90 3RF mexiletine 150 mg capsule 150 mg PO 3XD Qty: 270 3RF venlafaxine 75 mg capsule,extended release 24hr 225 mg PO DAILY Qty: 270 3RF dabigatran etexilate [Pradaxa] 150 mg capsule 150 mg PO BID Qty: 180 3RF Jardiance 10 mg tablet 10 mg PO DAILY Qty: 90 3RF metoprolol succinate 100 mg tablet extended release 24 hr 100 mg PO BID Qty: 180 3RF spironolactone 25 mg tablet 25 mg PO DAILY Qty: 90 3RF Rx Instructions: Dose change to 25 mg daily. Please d/c previous script. Thanks! Entresto 24-26 mg tablet 0.5 tab PO BID Qty: 90 3RF Disabled Parking Permit 1 ea Not Applicable DAILY Qty: 1 0RF Rx Instructions: As directed Referrals: González Lopez MD [Primary Care Provider] - Stand Alone Forms: Patient Portal/API/Survey
[2024-02-14] MEDS: SODIUM CHLORIDE 0.9% 1,000 ML 1000 ML IV (21:13)
== END 2024-02-14 22:25 | disposition home or self-care (01) ==
PROVIDERS: Emergency Medicine; Emergency Provider Emergency Medicine; Family Provider Family Medicine; PCP Internal Medicine
DX: A04.1 Enterotoxigenic Escherichia coli infection (principal); R07.9 Chest pain, unspecified
CPT/HCPCS: 36415; 71045; 80053; 82550; 83690; 83735; 83880; 84484; 85025; 85610; 85730; 87507; 93005; 96360; 99284

== ENCOUNTER → 2024-04-05 16:16 | Outpatient (CLI) | payer MEDICARE, SELFPAY ==
[2022-08-18 11:11] VITALS: BMI 29.4
--- NOTE | 2024-04-05 16:17 | DI.US.S_ITS ---
PROCEDURE: US CAROTID DOPPLER BI INDICATIONS: one episode of unilateral vision loss TECHNIQUE: Color and pulse Doppler interrogation was performed of both carotid systems, with image documentation and velocity measurements. COMPARISON: None. FINDINGS: Stenosis calculations are based on SRU (Society of Radiologists in Ultrasound) criteria. Right side: Brachial blood pressure: 114/57 mm Hg. Common carotid artery peak systolic velocity: 54 cm/sec. Internal carotid artery peak systolic velocity: 101 cm/sec. Internal carotid artery end diastolic velocity: 27 cm/sec. External carotid artery peak systolic velocity: 57 cm/sec. ICA/CCA peak systolic ratio: 1.9 . Harley scale imaging description: Mild atherosclerotic plaque in the proximal internal carotid artery Percent internal carotid artery stenosis: Less than 50% . Vertebral artery: Flow direction is antegrade. Left side: Brachial blood pressure: 110/61 mm Hg. Common carotid artery peak systolic velocity: 58 cm/sec. Internal carotid artery peak systolic velocity: 88 cm/sec. Internal carotid artery end diastolic velocity: 33 cm/sec. External carotid artery peak systolic velocity: 91 cm/sec. ICA/CCA peak systolic ratio: 1.5 . Harley scale imaging description: Mild atherosclerotic disease of the proximal internal carotid artery Percent internal carotid artery stenosis: Less than 50% . Vertebral artery: Flow direction is antegrade. IMPRESSION: 1. In the right carotid artery, there is less than 50% stenosis based on peak systolic velocity criteria. 2. In the left carotid artery, there is le less than 50% stenosis based on peak systolic velocity criteria. 3. Antegrade vertebral arteries. Dictated by: Jeremy Niño M.D. on 04/05/2024 at 18:35 Approved by: Jeremy Niño M.D. on 04/05/2024 at 18:36
== END ==
PROVIDERS: Family Provider Family Medicine; PCP Internal Medicine; Referring Provider Internal Medicine; Visit Provider Internal Medicine
DX: G45.3 Amaurosis fugax (principal)
CPT/HCPCS: 93880

== ENCOUNTER → 2024-06-06 08:45 | Outpatient (CLI) | payer MEDICARE, SELFPAY ==
[2022-08-18 11:11] VITALS: BMI 29.4
[2024-06-06 09:36] LABS: Hematocrit 41.7 % (41-53); Hemoglobin 13.6 g/dL (13.5-17.5); Mean Corpuscular HGB Conc 32.6 % (30-36); Mean Corpuscular Hemoglobin 29.6 PG (26-34); Mean Corpuscular Volume 90.7 fL (80-100); Platelet Count 330 X10^3/uL (150-400)
[2024-06-06 09:47] LABS: Hemoglobin A1C% w Est Avg Glu 5.5 % (4.0-6.0)
[2024-06-06 11:57] LABS: Alanine Aminotransferase 54 IU/L (<50); Albumin 4.3 g/dL (3.5-5.0); Albumin Globulin Ratio 1.4 (1.0-2.8); Alkaline Phosphatase 61 U/L (38-126); Aspartate Aminotransferase 44 IU/L (17-59); BUN Creatinine Ratio 16.7 (6-22); Bilirubin Total 0.5 mg/dL (0.2-1.3); Blood Urea Nitrogen 25 mg/dL (9-20); Calcium 9.3 mg/dL (8.4-10.2); Carbon Dioxide 25 mmol/L (22-32); Chloride 106 mmol/L (98-107); Cholesterol 141 mg/dL (140-199); Estimated Glomerular Filt Rate 48 mL/min (>60); Glucose 95 mg/dL (80-110); HDL Cholesterol 50 mg/dL (40-60); HEMOLYSIS < 15 (0-50); LDL Cholesterol Calculated 74 mg/dL (<100); Potassium 4.8 mmol/L (3.4-5.1); Sodium 141 mmol/L (137-145); Total Protein 7.3 g/dL (6.3-8.2); Triglycerides 87 mg/dL (35-150)
== END ==
PROVIDERS: Family Provider Family Medicine; PCP Internal Medicine; Referring Provider Internal Medicine; Visit Provider Internal Medicine
DX: N18.31 Chronic kidney disease, stage 3a (principal); R73.01 Impaired fasting glucose; E78.2 Mixed hyperlipidemia
CPT/HCPCS: 36415; 80053; 80061; 83036; 85027

== ENCOUNTER → 2024-06-13 10:00 | Outpatient (CLI) | payer MEDICARE, SELFPAY ==
[2022-08-18 11:11] VITALS: BMI 29.4
--- NOTE | 2024-06-13 10:02 | DI.US.S_ITS ---
PROCEDURE: US RENAL COMPLETE INDICATIONS: elevated creatinine TECHNIQUE: Real-time scanning was performed of the kidneys and bladder, with image documentation. COMPARISON: None. FINDINGS: Kidneys: Kidneys are normal in size. Right kidney measures 10.6 cm long; left kidney measures 11.5 cm long. Right renal cortical thickness is 1.4 cm; left renal cortical thickness is 1.7 cm. Renal cortical echotexture is normal. No hydronephrosis or nephrolithiasis. No suspicious solid mass lesions. Right renal cysts with largest measuring 4.9 x 6.1 x 5.4 centimeters. Left renal cysts with largest measuring 6.9 x 6.9 x 5.0 centimeters Bladder: Pre-void bladder volume is 85 mL. Post-void residual is 0 mL. Pre-void images demonstrate no intraluminal masses or stones. On pre-void images, both the right and left ureteral jets are noted with color Doppler interrogation. (Of note, ureteral jets may not be detectable in up to 25% of cases due to insufficient differences in specific gravity between ureteral and bladder urine). Miscellaneous: No free pelvic fluid. IMPRESSION: Unremarkable renal ultrasound. No hydronephrosis. Dictated by: Maribel Casas MD, PhD on 06/13/2024 at 12:54 Approved by: Maribel Casas MD, PhD on 06/13/2024 at 12:57
== END ==
PROVIDERS: Family Provider Family Medicine; PCP Internal Medicine; Referring Provider Internal Medicine; Visit Provider Internal Medicine
DX: N18.31 Chronic kidney disease, stage 3a (principal); N28.1 Cyst of kidney, acquired
CPT/HCPCS: 76770

== ENCOUNTER → 2024-06-28 09:23 | Outpatient (CLI) | payer MEDICARE, SELFPAY ==
[2022-08-18 11:11] VITALS: BMI 29.4
[2024-06-28 11:09] LABS: NT-proBNP (BNP-Adult 18+) 283 pg/mL (<450)
== END ==
LOC: LAB 09:23
PROVIDERS: Family Provider Family Medicine; PCP Internal Medicine; Referring Provider Internal Medicine Cardiovascular Disease; Visit Provider Internal Medicine Cardiovascular Disease
DX: I25.5 Ischemic cardiomyopathy (principal); I48.91 Unspecified atrial fibrillation; I47.20 Ventricular tachycardia, unspecified; I25.10 Atherosclerotic heart disease of native coronary artery without angina pectoris
CPT/HCPCS: 36415; 83880

== ENCOUNTER → 2024-09-04 09:15 | Outpatient (CLI) | payer MEDICARE, SELFPAY ==
[2022-08-18 11:11] VITALS: BMI 29.4
[2024-09-04 10:12] LABS: Hematocrit 38.4 % (41-53); Hemoglobin 12.3 g/dL (13.5-17.5); Mean Corpuscular HGB Conc 32.1 % (30-36); Mean Corpuscular Hemoglobin 29.4 PG (26-34); Mean Corpuscular Volume 91.5 fL (80-100); Platelet Count 232 X10^3/uL (150-400); Red Cell Distribution Width 15.1 % (11.6-14.8); White Blood Cell Count 5.1 X10^3/uL (4.5-11.0)
[2024-09-04 10:40] LABS: HEMOLYSIS < 15 (0-50); NT-proBNP (BNP-Adult 18+) 494 pg/mL (<450)
[2024-09-04 10:49] LABS: Alanine Aminotransferase 30 IU/L (<50); Albumin 4.2 g/dL (3.5-5.0); Albumin Globulin Ratio 1.6 (1.0-2.8); Alkaline Phosphatase 59 U/L (38-126); Aspartate Aminotransferase 37 IU/L (17-59); BUN Creatinine Ratio 26.5 (6-22); Bilirubin Total 0.4 mg/dL (0.2-1.3); Blood Urea Nitrogen 30 mg/dL (9-20); Carbon Dioxide 22 mmol/L (22-32); Chloride 110 mmol/L (98-107); Estimated Glomerular Filt Rate > 60 mL/min (>60); Globulin 2.7 g/dL (1.7-4.1); Glucose 86 mg/dL (70-99); Potassium 5.2 mmol/L (3.4-5.1); Sodium 142 mmol/L (137-145); Total Protein 6.9 g/dL (6.3-8.2)
[2024-09-04 10:58] LABS: Creatinine Urine Random 77.81 mg/dL
[2024-09-04 11:03] LABS: Microalbumin Urine Random 1.3 mg/dL (0-1.6)
== END ==
PROVIDERS: Family Provider Family Medicine; PCP Internal Medicine; Referring Provider Internal Medicine; Visit Provider Internal Medicine
DX: I50.22 Chronic systolic (congestive) heart failure (principal); N18.31 Chronic kidney disease, stage 3a; E78.2 Mixed hyperlipidemia; R73.01 Impaired fasting glucose
CPT/HCPCS: 36415; 80053; 82043; 82570; 83880; 85027

== ENCOUNTER 2024-09-17 10:23 | Emergency (ER) | payer MEDICARE, SELFPAY ==
[2022-08-18 11:11] VITALS: BMI 29.4
[2024-09-17] VITALS (8 sets, daily range): BP systolic 99–110; BP diastolic 53–60; PULSE 60–61; RESP 16–31; TEMP 36.8; O2SAT 82–98; BMI 27.9
--- NOTE | 2024-09-17 10:33 | DI.CT.S_ITS ---
PROCEDURE: CT ANGIO HEAD AND NECK INDICATIONS: Last known well 9:30pm yesterday left eye blurry vision TECHNIQUE: After the administration of intravenous contrast, 1 mm thick sections acquired from the aortic arch through the [place] of [place]. 3-dimensional tkutmpw-chxdxhtqp-fbdjauhccb (MIP) and/or volume rendering reformats were acquired of the central intracranial vasculature and neck separately. For radiation dose reduction, the following was used: automated exposure control, adjustment of mA and/or kV according to patient size. COMPARISON: None. FINDINGS: Image quality: Diagnostic. Cerebral CT Angiogram: Internal carotid arteries: No acute findings. Intracranial ICA are patent with no significant stenosis. No occlusion. No aneurysm. Anterior cerebral arteries: Unremarkable. No significant stenosis. No occlusion. No aneurysm. Middle cerebral arteries: Unremarkable. No significant stenosis. No occlusion. No aneurysm. Posterior cerebral arteries: Unremarkable. No significant stenosis. No occlusion. No aneurysm. Basilar artery: Unremarkable. No significant stenosis. No occlusion. No aneurysm. Vertebral arteries: Unremarkable as visualized. Dural venous sinuses: Unremarkable given phase of enhancement. Other: Arterial phase appearance of the brain parenchyma is unremarkable. Neck CT Angiogram: Internal carotid arteries: Unremarkable. No significant stenosis. No dissection or occlusion. Common carotid arteries: Unremarkable. No significant stenosis. No dissection or occlusion. External carotid arteries: Unremarkable. No occlusion. Vertebral arteries: Unremarkable. No significant stenosis. No dissection or occlusion. Aortic Arch and Mediastinum: Partially visualized aortic arch unremarkable without evidence of aneurysm. Origins of the great vessels unremarkable. Other: Arterial phase soft tissues of the neck and chest are unremarkable. IMPRESSION: No significant intracranial arterial abnormality is seen. No significant abnormality is seen within the arteries of the neck. Any quantitative measurements of stenosis were performed using NASCET criteria. Dictated by: Jeremy Niño M.D. on 09/17/2024 at 11:11 Approved by: Jeremy Niño M.D. on 09/17/2024 at 11:13
--- NOTE | 2024-09-17 10:33 | DI.RAD.S_ITS ---
PROCEDURE: XR CHEST 1V INDICATIONS: Possible stroke TECHNIQUE: One view of the chest was acquired. COMPARISON: [facility], CR, XR CHEST 1V, 02/14/2024, 16:08. [facility], CR, XR CHEST 1V, 04/07/2023, 8:20. FINDINGS: Surgical changes and devices: Right shoulder arthroplasty. Left chest wall generator with cardiac leads. Lungs and pleura: Lungs are clear. No pleural effusions or pneumothorax. Mediastinum: Mediastinal contours appear normal. Heart size is normal. Bones and chest wall: No suspicious bony lesions. Overlying soft tissues appear unremarkable. IMPRESSION: No acute cardiopulmonary abnormality is seen. Dictated by: Jeremy Niño M.D. on 09/17/2024 at 10:57 Approved by: Jeremy Niño M.D. on 09/17/2024 at 10:58
--- NOTE | 2024-09-17 10:33 | DI.CT.S_ITS ---
PROCEDURE: CT HEAD/BRAIN WO CON INDICATIONS: Positive BE-FAST, Stroke symptoms TECHNIQUE: Noncontrast 4.5 mm thick angled axial sections acquired from the foramen magnum to the vertex, with coronal and sagittal reformats. For radiation dose reduction, the following was used: automated exposure control, adjustment of mA and/or kV according to patient size. COMPARISON: None. FINDINGS: Image quality: Diagnostic. CSF spaces: Basal cisterns are patent. No extra-axial fluid collections. The ventricles are symmetric in size and shape. Brain: No intracranial bleeds or mass effect. There is cerebral volume loss, with resultant ventricular and sulcal prominence. There are periventricular and deep white matter chronic small vessel ischemic changes. There is intracranial internal carotid artery atherosclerosis. Skull and face: Calvarium and visualized facial bones appear intact, without suspicious lesions. Sinuses: Visualized sinuses and mastoids are clear. IMPRESSION: No acute intracranial pathology. Dictated by: Jeremy Niño M.D. on 09/17/2024 at 11:10 Approved by: Jeremy Niño M.D. on 09/17/2024 at 11:10
--- NOTE | 2024-09-17 10:36 | EKG_ITS ---
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
--- NOTE | 2024-09-17 10:43 | ED.NEUROSD ---
HPI - Neuro Symptoms/Deficit General Chief Complaint: Neuro Symptoms/Deficit Stated Complaint: Blurry Vision in left eye since this morning Time Seen by Provider: 09/17/24 10:35 Source: patient Mode of arrival: Ambulatory History of Present Illness HPI Narrative: Patient here for left eye blurry vision, no double vision no headache no eye pain. Went to bed 9:30 p.m. last night awoke at 4:30 a.m. today with left eye blurry vision that is improving. Patient denies any chest pain or dyspnea. Patient has history of pacemaker due to multiple types of arrhythmias including atrial fibrillation. Patient denies any chest pain facial droop numbness tingling or weakness of the limbs no slurred speech no confusion. No headache. Patient wears glasses. Patient does have history of bilateral cataract surgery, no history of glaucoma. No history of retinal detachment or problems. No floaters in his vision. On Anticoagulants: Yes (pradaxa) Related Data Home Medications ?Medication ?Instructions ?Recorded ?Confirmed amiodarone 100 mg tablet 100 mg PO DAILY 07/18/24 09/04/24 Previous Rx's ?Medication ?Instructions ?Recorded Disabled Parking Permit 1 ea Not Applicable DAILY #1 ea 09/30/22 metoprolol succinate 100 mg 100 mg PO BID #180 tabs 04/13/23 tablet,extended release 24 hr sacubitril 24 mg-valsartan 26 mg 0.5 tab PO BID #90 tabs 12/16/23 tablet (Entresto) atorvastatin 80 mg tablet 80 mg PO BEDTIME #90 tabs 02/27/24 empagliflozin 10 mg tablet 10 mg PO DAILY #90 tabs 05/04/24 (Jardiance) mexiletine 150 mg capsule 150 mg PO 3XD #270 caps 05/08/24 dabigatran etexilate 150 mg 150 mg PO BID #180 caps 05/17/24 capsule (Pradaxa) spironolactone 25 mg tablet 25 mg PO DAILY #90 tabs 06/18/24 furosemide 20 mg tablet 20 mg PO DAILY #30 tabs 09/04/24 sertraline 100 mg tablet 100 mg PO DAILY #90 tabs 09/04/24 Allergies Allergy/AdvReac Type Severity Reaction Status Date / Time No Known Drug Allergies Allergy Verified 09/17/24 10:26 Review of Systems Review of Systems Narrative: GENERAL: Negative chills, fatigue, malaise, fever, sweats. HEENT: Negative sinus pain, ear pain, sore throat, positive blurry vision RESPIRATORY: Negative dyspnea, cough CARDIOVASCULAR: Negative chest pain, palpitations GASTROINTESTINAL: Negative vomiting, nausea, abdominal pain : Negative dysuria, frequency, hematuria MUSCULOSKELETAL: Negative muscle or bony pain SKIN: Negative rash, skin lesions NEUROLOGIC: Negative weakness, numbness ROS Unobtainable: All systems reviewed & are unremarkable except as noted in HPI and below Hematologic/Lymphatic On Anticoagulants: Yes (pradaxa) Patient History Medical History Anxiety Back pain Benign essential tremor BPH w urinary obs/LUTS CAD (coronary artery disease) Chronic anticoagulation Chronic low back pain COPD (chronic obstructive pulmonary disease) Depression Depression, major, recurrent Erectile dysfunction Esophageal reflux Essential hypertension Foot drop, right History of cardioversion History of ventricular fibrillation HLD (hyperlipidemia) HTN (hypertension) Impaired fasting glucose Ischemic cardiomyopathy Mitral valve insufficiency Mixed hyperlipidemia MAR (obstructive sleep apnea) Osteoarthritis Paroxysmal A-fib Primary osteoarthritis involving multiple joints Right-sided tinnitus Stage 3a chronic kidney disease (CKD) Systolic CHF, chronic Ventricular tachycardia Surgical History H/O vasectomy History of cardiac cath History of cardiac radiofrequency ablation Hx of bilateral cataract extraction Hx of heart artery stent (2002) Hx of heart artery stent (1997) Hx of tonsillectomy Presence of biventricular implantable cardioverter-defibrillator (ICD) Status post epidural steroid injection 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), 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 EYES: Pupils equal round, EOMI, PERRLA, bedside funduscope use, no papilledema no photophobia of the left eye. Grossly looking with his glasses on. Slight blurry vision in the room looking around but no double vision or headache. Visual acuity with glasses on 20/70 on the left, 20/40 bilaterally ENT: Mucous membranes moist. NECK: Trachea midline. CARDIOVASCULAR: Regular rate and rhythm RESPIRATORY: Clear to auscultation. Breath sounds equal bilaterally. No wheezes, rales, or rhonchi. GASTROINTESTINAL: Abdomen soft, non-tender EXTREMITIES: No gross deformities. BACK: No flank tenderness. NEURO: AOx4. Clear speech, no facial droop light touch intact brother with pace hands and legs strong equal cut out stitcher negative pronator drift. Elevate each leg without drift. SKIN: Warm and dry PSYCH: Not anxious, is cooperative Initial Vital Signs Initial Vital Signs: Vital Signs Temperature 98.2 F 09/17/24 10: Pulse Rate 61 09/17/24 10: Respiratory Rate 16 09/17/24 10: Blood Pressure 101/54 L 09/17/24 10: Pulse Oximetry 98 09/17/24 10:26 Oxygen Delivery Method Room Air 09/17/24 10:26 Course Orders Ordered: Discontinued Medications Sodium Chloride (Normal Saline 0.9%) 500 mls @ 1,000 mls/hr IV BOLUS ONE Stop: 09/17/24 11:15 Last Admin: 09/17/24 11:35 Dose: Not Given Documented By: LM Ondansetron HCl (Ondansetron 4 Mg/2 Ml Inj) 4 mg IV NOW PRN PRN Reason: Nausea And Vomiting Ondansetron HCl (Ondansetron 4 Mg Odt) 4 mg PO NOW PRN PRN Reason: Nausea And Vomiting Vital Signs Vital signs: Vital Signs - 8 hr 09/17/24 10:26 09/17/24 11:06 09/17/24 11:09 Temperature 98.2 F Pulse Rate 61 60 Respiratory Rate 16 31 H Blood Pressure 101/54 L Pulse Oximetry 98 82 L 97 Oxygen Delivery Method Room Air 09/17/24 11:09 09/17/24 11:33 09/17/24 11:35 Temperature Pulse Rate 60 60 Respiratory Rate 25 H Blood Pressure 110/59 L Pulse Oximetry 92 98 Oxygen Delivery Method 09/17/24 11:35 09/17/24 12:00 09/17/24 12:01 Temperature Pulse Rate 60 60 Respiratory Rate 29 H 24 Blood Pressure 103/57 L Pulse Oximetry 95 95 Oxygen Delivery Method 09/17/24 12:01 Temperature Pulse Rate Respiratory Rate Blood Pressure 99/53 L Pulse Oximetry Oxygen Delivery Method MDM - Neuro Symptoms/Deficit Lab Data 09/17/24 10:38 09/17/24 10:38 Labs: Lab Results 09/17/24 09/17/24 Range/Units 10:38 11:38 WBC 6.5 (4.5-11.0) X10^3/uL RBC 4.25 L (4.5-5.9) X10^6/uL Hgb 12.6 L (13.5-17.5) g/dL Hct 38.5 L (41-53) % MCV 90.6 (80-100) fL MCH 29.6 (26-34) PG MCHC 32.7 (30-36) % RDW 15.2 H (11.6-14.8) % Plt Count 236 (150-400) X10^3/uL Neut % (Auto) 62.7 (50-75) % Lymph % (Auto) 15.3 L (25-40) % [place] % (Auto) 14.1 H (3-14) % Eos % (Auto) 5.8 H (2-4) % Baso % (Auto) 2.1 H (0-2) % Neut # (Auto) 4100 (4388-1177) /uL Lymph # (Auto) 1000 L (4052-3915) /uL [place] # (Auto) 900 (0-900) /uL Eos # (Auto) 400 (0-450) /uL Baso # (Auto) 100 (0-100) /uL PT 15.9 H (9.4-12.5) SECONDS INR 1.4 H (0.9-1.3) APTT 69 H (25.1-36.5) SECONDS Sodium 141 (137-145) mmol/L Potassium 4.6 (3.4-5.1) mmol/L Chloride 110 H (98-107) mmol/L Carbon Dioxide 21 L (22-32) mmol/L BUN 30 H (9-20) mg/dL Creatinine 1.34 H (0.66-1.25) mg/dL Estimated GFR 55 L (>60) mL/min BUN/Creatinine Ratio 22.4 H (6-22) Glucose 107 H (70-99) mg/dL Calcium 9.0 (8.4-10.2) mg/dL Total Bilirubin 0.8 (0.2-1.3) mg/dL AST 42 (17-59) IU/L ALT 34 (<50) IU/L Alkaline Phosphatase 56 (38-126) U/L Total Creatine Kinase 90 (55-170) U/L Troponin I < 0.012 (0.01-0.034) ng/mL Total Protein 7.7 (6.3-8.2) g/dL Albumin 4.6 (3.5-5.0) g/dL Globulin 3.1 (1.7-4.1) g/dL Albumin/Globulin Ratio 1.5 (1.0-2.8) U Opiates 300ng/mL cut Negative (Negative) Ur Oxycodone Screen Negative (Negative) Urine Methadone Screen Negative (Negative) Ur Barbiturates Screen Negative (Negative) U Tricyclic Antidepress Negative (Negative) Ur Phencyclidine Scrn Negative (Negative) Ur Amphetamines Screen Negative (Negative) U Methamphetamines Scrn Negative (Negative) Ur MDMA Scrn (Ecstasy) Negative (Negative) U Benzodiazepines Scrn Negative (Negative) Urine Cocaine Screen Negative (Negative) U Marijuana (THC) Screen Negative (Negative) Urine pH Normal (Normal) Urine Specific [place] Normal (Normal) Ur Creatinine Normal (Normal) Point of Care Testing Glucose POC 103 Urine Dip Bedside Urine Glucose 1000 mg/dl Bedside Urine Bilirubin - Negative Bedside Urine Ketone - Negative Urine Specific [place] 1.010 Bedside Urine Occult Blood - Negative Bedside Urine pH 6.0 Bedside Urine Protein - Negative Bedside Urine Urobilinogen - Negative Bedside Urine Nitrite - Negative Bedside Urine Leukocytes - Negative Esterase Imaging Data CT scan - head: Radiologist's Impression: [address] [address] [address] Scan Report Signed Patient: Hernandez Arzola MR#: [id number] : 1950 Acct:[id number] Age/Sex: 74 / M Date of Service: 09/17/24 Loc: ED Accession Number: [id number] Procedure: CT head/brain wo con Ordering Provider: Alexandr Armendariz MD PROCEDURE: CT HEAD/BRAIN WO CON INDICATIONS: Positive BE-FAST, Stroke symptoms TECHNIQUE: Noncontrast 4.5 mm thick angled axial sections acquired from the foramen magnum to the vertex, with coronal and sagittal reformats. For radiation dose reduction, the following was used: automated exposure control, adjustment of mA and/or kV according to patient size. COMPARISON: None. FINDINGS: Image quality: Diagnostic. CSF spaces: Basal cisterns are patent. No extra-axial fluid collections. The ventricles are symmetric in size and shape. Brain: No intracranial bleeds or mass effect. There is cerebral volume loss, with resultant ventricular and sulcal prominence. There are periventricular and deep white matter chronic small vessel ischemic changes. There is intracranial internal carotid artery atherosclerosis. Skull and face: Calvarium and visualized facial bones appear intact, without suspicious lesions. Sinuses: Visualized sinuses and mastoids are clear. IMPRESSION: No acute intracranial pathology. Dictated by: Jeremy Niño M.D. on 09/17/2024 at 11:10 Approved by: Jeremy Niño M.D. on 09/17/2024 at 11:10 CTA - brain/neck: Radiologist's Impression: [place] [address] CT Scan Report Signed Patient: Hernandez Arzola MR#: [id number] : 1950 Acct:[id number] Age/Sex: 74 / M Date of Service: 09/17/24 Loc: ED Accession Number: [id number] Procedure: CT angio head and neck Ordering Provider: Alexandr Armendariz MD PROCEDURE: CT ANGIO HEAD AND NECK INDICATIONS: Last known well 9:30pm yesterday left eye blurry vision TECHNIQUE: After the administration of intravenous contrast, 1 mm thick sections acquired from the aortic arch through the [place] of [place]. 3-dimensional blhmoqn-rysbiuxgz-gqtqkgaslr (MIP) and/or volume rendering reformats were acquired of the central intracranial vasculature and neck separately. For radiation dose reduction, the following was used: automated exposure control, adjustment of mA and/or kV according to patient size. COMPARISON: None. FINDINGS: Image quality: Diagnostic. Cerebral CT Angiogram: Internal carotid arteries: No acute findings. Intracranial ICA are patent with no significant stenosis. No occlusion. No aneurysm. Anterior cerebral arteries: Unremarkable. No significant stenosis. No occlusion. No aneurysm. Middle cerebral arteries: Unremarkable. No significant stenosis. No occlusion. No aneurysm. Posterior cerebral arteries: Unremarkable. No significant stenosis. No occlusion. No aneurysm. Basilar artery: Unremarkable. No significant stenosis. No occlusion. No aneurysm. Vertebral arteries: Unremarkable as visualized. Dural venous sinuses: Unremarkable given phase of enhancement. Other: Arterial phase appearance of the brain parenchyma is unremarkable. Neck CT Angiogram: Internal carotid arteries: Unremarkable. No significant stenosis. No dissection or occlusion. Common carotid arteries: Unremarkable. No significant stenosis. No dissection or occlusion. External carotid arteries: Unremarkable. No occlusion. Vertebral arteries: Unremarkable. No significant stenosis. No dissection or occlusion. Aortic Arch and Mediastinum: Partially visualized aortic arch unremarkable without evidence of aneurysm. Origins of the great vessels unremarkable. Other: Arterial phase soft tissues of the neck and chest are unremarkable. IMPRESSION: No significant intracranial arterial abnormality is seen. No significant abnormality is seen within the arteries of the neck. Any quantitative measurements of stenosis were performed using NASCET criteria. Dictated by: Jeremy Niño M.D. on 09/17/2024 at 11:11 Approved by: Jeremy Niño M.D. on 09/17/2024 at 11:13 Chest x-ray: Radiologist's Impression: [place] [address] XRay Report Signed Patient: Hernandez Arzola MR#: [id number] : 1950 Acct:[id number] Age/Sex: 74 / M Date of Service: 09/17/24 Loc: ED Accession Number: [id number] Procedure: XR chest 1V Ordering Provider: Alexandr Armendariz MD PROCEDURE: XR CHEST 1V INDICATIONS: Possible stroke TECHNIQUE: One view of the chest was acquired. COMPARISON: [facility], , XR CHEST 1V, 02/14/2024, 16:08. [facility], , XR CHEST 1V, 04/07/2023, 8:20. FINDINGS: Surgical changes and devices: Right shoulder arthroplasty. Left chest wall generator with cardiac leads. Lungs and pleura: Lungs are clear. No pleural effusions or pneumothorax. Mediastinum: Mediastinal contours appear normal. Heart size is normal. Bones and chest wall: No suspicious bony lesions. Overlying soft tissues appear unremarkable. IMPRESSION: No acute cardiopulmonary abnormality is seen. Dictated by: Jeremy Niño M.D. on 09/17/2024 at 10:57 Approved by: Jeremy Niño M.D. on 09/17/2024 at 10:58 [facility] Narrative Medical decision making narrative: Patient here for left eye blurry vision, no double vision no headache no eye pain. Went to bed 9:30 p.m. last night awoke at 4:30 a.m. today with left eye blurry vision that is improving. Patient denies any chest pain or dyspnea. Patient has history of pacemaker due to multiple types of arrhythmias including atrial fibrillation. Patient denies any chest pain facial droop numbness tingling or weakness of the limbs no slurred speech no confusion. No headache. Patient wears glasses. Patient does have history of bilateral cataract surgery, no history of glaucoma. No history of retinal detachment or problems. No floaters in his vision. After history and exam, CBC CMP P EKG troponin CT head CT angiogram head and neck MDM Medical records reviewed: No recent visit for this complaint Differential considered: Includes but not limited to TIA stroke central retinal vein occlusion central artery occlusion cataracts glaucoma, retinal detachment Lab Test results independently reviewed as above. Pertinent findings: WBC 6.5 hemoglobin 12.6 INR 1.4 BUN 30 creatinine 1.34 GFR 55 troponin less than 0.012 Independently reviewed EKG AV dual paced rhythm rate 60 biventricular pacemaker Imaging studies independently reviewed: CT head CT angiogram head and neck chest x-ray no acute findings Consultations: 11:40 a.m.. Spoke with the [facility] tele stroke, Dr. Mcgraw, at this time she will review patient's results and call back. However likely follow up with patient's bridge crane operator. Patient sees [facility] in [place] 11:49 a.m.. I spoke with Dr. Mcgraw again, patient can be discharged and follow up with their bridge crane operator for primary care for scheduling outpatient MRI as well. No changes in medications at this time. Re-evaluations: 11:45 a.m.. Updated patient results. We are waiting to hear back from Neurology Services. He does agree. No new complaints 12:32 p.m.. Patient declined repeat cardiac enzymes. He does not want to wait any longer for ophthalmology services to call back. He will call his bridge crane operator. I did review with him my discussion with neurology services. He needs ophthalmology evaluation within next 24 -48 hours. Return precautions reviewed. He does not want to to wait any longer. He desires discharge home. Discussion: Appropriate for discharge home. Exam is reassuring at this time neurology service was contacted. However patient did not want to wait for consult with ophthalmology services. Return precautions reviewed. He desires discharge home. Diagnosis: Blurry vision Discharge Plan Departure Patient Disposition: Home Clinical Impression: Blurred vision, left eye Instructions: DI for Visual Field Disturbances Activity Restrictions/Additional Instructions: Please call your bridge crane operator today for follow up appointment within the next 48 hours. This is instructed by the neurologist we contacted at [facility]. You may need outpatient MRI of the brain. Please do continue home medications. Return if worse if any questions or concerns Prescriptions: No Action metoprolol succinate 100 mg tablet extended release 24 hr 100 mg PO BID Qty: 180 3RF Entresto 24-26 mg tablet 0.5 tab PO BID Qty: 90 3RF atorvastatin 80 mg tablet 80 mg PO BEDTIME Qty: 90 3RF Jardiance 10 mg tablet 10 mg PO DAILY Qty: 90 3RF mexiletine 150 mg capsule 150 mg PO 3XD Qty: 270 3RF dabigatran etexilate [Pradaxa] 150 mg capsule 150 mg PO BID Qty: 180 3RF spironolactone 25 mg tablet 25 mg PO DAILY Qty: 90 3RF Rx Instructions: Dose change to 25 mg daily. Please d/c previous script. Thanks! Disabled Parking Permit 1 ea Not Applicable DAILY Qty: 1 0RF Rx Instructions: As directed amiodarone 100 mg tablet 100 mg PO DAILY sertraline 100 mg tablet 100 mg PO DAILY Qty: 90 3RF furosemide 20 mg tablet 20 mg PO DAILY Qty: 30 0RF Referrals: González Lopez MD [Primary Care Provider, Internal Medicine] Stand Alone Forms: Patient Portal/API
[2024-09-17 10:47] LABS: Add Manual Diff / Slide Review NO; Basophils Absolute Auto 100 /uL (0-100); Basophils Percent Auto 2.1 % (0-2); Eosinophils Absolute Auto 400 /uL (0-450); Eosinophils Percent Auto 5.8 % (2-4); Hematocrit 38.5 % (41-53); Hemoglobin 12.6 g/dL (13.5-17.5); Lymphocytes Absolute Auto 1000 /uL (1100-4500); Lymphocytes Percent Auto 15.3 % (25-40); Mean Corpuscular HGB Conc 32.7 % (30-36); Mean Corpuscular Hemoglobin 29.6 PG (26-34); Mean Corpuscular Volume 90.6 fL (80-100); Monocytes Absolute Auto 900 /uL (0-900); Monocytes Percent Auto 14.1 % (3-14); Neutrophils Absolute Auto 4100 /uL (1500-7000); Neutrophils Percent Auto 62.7 % (50-75); Platelet Count 236 X10^3/uL (150-400); Red Blood Cell Count 4.25 X10^6/uL (4.5-5.9); Red Cell Distribution Width 15.2 % (11.6-14.8); White Blood Cell Count 6.5 X10^3/uL (4.5-11.0)
[2024-09-17 10:55] LABS: INR 1.4 (0.9-1.3); Prothrombin Time 15.9 SECONDS (9.4-12.5)
[2024-09-17 10:57] LABS: Alanine Aminotransferase 34 IU/L (<50); Albumin 4.6 g/dL (3.5-5.0); Albumin Globulin Ratio 1.5 (1.0-2.8); Alkaline Phosphatase 56 U/L (38-126); Aspartate Aminotransferase 42 IU/L (17-59); BUN Creatinine Ratio 22.4 (6-22); Bilirubin Total 0.8 mg/dL (0.2-1.3); Blood Urea Nitrogen 30 mg/dL (9-20); Carbon Dioxide 21 mmol/L (22-32); Chloride 110 mmol/L (98-107); Creatine Kinase 90 U/L (55-170); Estimated Glomerular Filt Rate 55 mL/min (>60); Globulin 3.1 g/dL (1.7-4.1); Glucose 107 mg/dL (70-99); HEMOLYSIS 32 (0-50); Potassium 4.6 mmol/L (3.4-5.1); Sodium 141 mmol/L (137-145); Total Protein 7.7 g/dL (6.3-8.2)
[2024-09-17 10:58] LABS: PTT Partial Thromboplastin Tim 69 SECONDS (25.1-36.5)
[2024-09-17 11:09] LABS: Troponin I < 0.012 ng/mL (0.01-0.034)
--- NOTE | 2024-09-17 11:53 | PC.NURSE ---
Pt endorses slightly still having some blurred vision to left eye, pt denies headache, chest pain, nausea, shortness of breath at this time. Call light within reach, no needs at this time
--- NOTE | 2024-09-17 12:01 | EKG_ITS ---
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
[2024-09-17 12:04] LABS: Ur Creatinine Normal (Normal); Ur Specific Gravity Normal (Normal); Urine Amphetamines Negative (Negative); Urine Barbiturates Negative (Negative); Urine Benzodiazepines Negative (Negative); Urine Cocaine Negative (Negative); Urine MDMA Negative (Negative); Urine Methadone Negative (Negative); Urine Opiates Negative (Negative); Urine Oxycodone Negative (Negative); Urine Phencyclidine Negative (Negative); Urine THC Negative (Negative); Urine Tricyclic Antidepressant Negative (Negative); Urine pH Normal (Normal)
--- NOTE | 2024-09-17 12:22 | PC.NURSE ---
Lab attempted to draw 2hr trop, pt refused, provider aware
== END 2024-09-17 12:37 | disposition home or self-care (01) ==
PROVIDERS: Emergency Provider Emergency Medicine; Family Provider Family Medicine; PCP Internal Medicine
DX: H53.8 Other visual disturbances (principal)
CPT/HCPCS: 36415; 70450; 70496; 70498; 71045; 80053; 80305; 81003; 82550; 82962; 84484; 85025; 85610; 85730; 93005; 99284

== ENCOUNTER → 2025-03-27 08:32 | Outpatient (CLI) | payer MEDICARE, SELFPAY ==
[2022-08-18 11:11] VITALS: BMI 29.4
[2025-03-27 12:09] LABS: Blood Urea Nitrogen 29 mg/dL (9-20); Calcium 9.0 mg/dL (8.4-10.2); Carbon Dioxide 23 mmol/L (22-32); Chloride 106 mmol/L (98-107); Estimated Glomerular Filt Rate 58 mL/min (>60); Glucose 93 mg/dL (70-99); HEMOLYSIS < 15 (0-50); Potassium 4.5 mmol/L (3.4-5.1); Sodium 142 mmol/L (137-145)
[2025-03-27 17:09] LABS: TSH w/ Reflex to FT4 3.63 uIU/mL (0.47-4.68)
== END ==
PROVIDERS: Family Provider Family Medicine; PCP Internal Medicine; Referring Provider Internal Medicine; Visit Provider Internal Medicine
DX: R79.89 Other specified abnormal findings of blood chemistry (principal); I10 Essential (primary) hypertension
CPT/HCPCS: 36415; 80048; 84443